=== PATIENT | male | born 1940 | race Caucasian/White ===

== ENCOUNTER 2018-08-28 12:08 | Outpatient (REF) | payer MEDICARE, BC, SELFPAY ==
[2018-08-28 12:47] LABS: ALT 21 U/L (12-78); AST 18 U/L (15-37); Albumin 3.6 g/dL (3.4-5.0); Alkaline Phosphatase 80 U/L (46-116); Anion Gap 8.8 mmol/L (3-11); BUN 13 mg/dL (7-18); Bilirubin, Total 0.7 mg/dL (0.2-1.0); CO2 28.2 mmol/L (21.0-32.0); CREATININE 0.87 mg/dL (0.70-1.30); Calcium 8.7 mg/dL (8.5-10.1); Chloride 104 mmol/L (98-107); Glucose 102 mg/dL (70-100); Potassium 4.1 mmol/L (3.5-5.1); Sodium 141 mmol/L (136-145)
[2018-08-28 12:58] LABS: Abs Immature Grans 0.03 k/cumm (0.0-0.09); Absolute Basophil Count 0.03 k/cumm (0.0-0.2); Absolute Eosinophil Count 0.16 k/cumm (0.0-0.7); Absolute Lymphocyte Count 1.18 k/cumm (1.2-3.4); Absolute Monocyte Count 0.73 k/cumm (0.11-0.7); Absolute Neutrophil Count 5.27 k/cumm (1.2-6.7); Basophils % 0.4; Eosinophils % 2.2; HCT 43.6 % (40.0-50.0); HGB 14.8 g/dL (13.5-17.5); Immature Grans % 0.4; Lymphocytes % 15.9; Mean Corp. HGB Concentration 33.9 g/dL (32.0-36.0); Mean Corpuscular Volume 97.1 fL (80-95); Mean Platelet Volume 11.2 fL (8.0-11.0); Monocytes % 9.9; Neutrophils % 71.2; Platelet Count 155 x1000/uL (130-400); RBC 4.49 m/cumm (4.50-6.00)
[2018-08-28 13:12] LABS: Lipase 318 U/L (73-393)
== END 2018-08-28 12:28 ==
LOC: NCHCN 12:08
PROVIDERS: PCP Internal Medicine; Visit Provider Internal Medicine
DX: R10.84 Generalized abdominal pain (principal)
CPT/HCPCS: 80053; 83690; 85025

== ENCOUNTER 2019-03-16 01:52 | Outpatient (CLI) | payer MEDICARE, BC, SELFPAY ==
--- NOTE | 2019-04-03 15:53 | CER_ITS ---
DATE OF DICTATION: April 03, 2019 [facility] RHYTHM MONITORING DEVICE REPORT INDICATION: Palpitations. MONITORING PERIOD: Between March 16, 2019 and April 01, 2019 Baseline is sinus rhythm with PAC's. Average heart rate 71 bpm. One short burst of non-sustained VT lasting 6 beats. Otherwise sinus rhythm with isolated PAC's. Overall rare ventricular ectopy otherwise. No atrial fibrillation.
== END 2019-03-16 02:12 ==
PROVIDERS: PCP Internal Medicine; Visit Provider Internal Medicine
DX: R00.2 Palpitations (principal); I49.1 Atrial premature depolarization
CPT/HCPCS: 93270

== ENCOUNTER 2019-04-03 15:40 | Outpatient (CLI) | payer MEDICARE, BC, SELFPAY | END 2019-04-03 16:00 | PROVIDERS: PCP Internal Medicine; Referring Provider Internal Medicine; Visit Provider Internal Medicine Cardiovascular Disease | DX: R00.2 Palpitations (principal); I49.1 Atrial premature depolarization | CPT/HCPCS: 93228 ==

== ENCOUNTER 2019-04-22 00:26 | Outpatient (CLI) | payer MEDICARE, BC, SELFPAY ==
--- NOTE | 2019-04-22 08:30 | ETT_ITS ---
*[facility]* *[facility]* [address] [place] [address] Stress Electrocardiography Vishnu protocol Date of study: 04/22/2019 *PATIENT PRESENTATION* Height: 175.3cm (69in) Blood Pressure: Weight: 81.8kg (180lb) BSA: 2.01m^2 Ordering physician: Logan Kauffman MD Impressions: - Borderline study. - Good functionality, no symptoms, borderline EKG changes. If clinical suspicion persists consider MPI. - No ventricular ectopy noted. Summary: 1. Stress ECG conclusions: Galvan treadmill score: 0. This score predicts a moderate risk of cardiac events. Indication: I47.2. History: REASON FOR TESTING:PATIENT REPORTED TO HIS MD THAT HE HAS HAD INTERMITTANT, SELF LIMITING, PALPITATIONS. 6 BEATS OF NON-SUSTAINED VTACH SEEN ON HOLTOR MONITOR RECORDER. PT DENIES SOBOR CHEST PAIN OR PRESSURE. PMH: NSVT, INTERMITTANT PALPITATIONS, NECK PAIN, HIP PAIN, HYPERTENSION, MELANOMA, DJD LUMBAR SPINE AND KNEE, BPH, LYPERLIPIDEMIA. FAMILY HX: MOTHER- OPF CVA AT AGE 91. SMOKING: QUIT 45 YEARS AGO.1.2 PPD X 10 YEARS. EXCERCISE: WALKS DAILY, OVER UNEVEN TERRAIN WITH DOG, BRISKLY FOR 1 HOUR. Risk factors: Cholesterol: 176mg/dl. HDL: 46mg/dl. LDL: 114mg/dl. Triglycerides: 181mg/dl. ALLERGIES: PENICILLIN, SEPTRA MEDICATIONS: PRAVASTATING SODIUM 20 MG HS, ASPIRIN EC 81 MG DAILY, CALCIUM 500 MG BID, OMEGA 3 1000 MG DAILY, SAW PALMETTO 900 MG DAILY. Protocol: Vishnu protocol. Baseline ECG: NO EKG AVAILABLE FOR COMPARISON. TODAY'S EKG- SINUS RHYTHM, HR 70. Stress protocol: + +---+ +---+ !Stage !HR !BP (mmHg) !Sat! + +---+ +---+ !Baseline supine !70 !194/92 (126) !---! + +---+ +---+ !Baseline standing !67 !168/84 (112) !---! + +---+ +---+ !Stage I; 1.7mph, 10degrees; 3 min !113!190/94 (126) !98%! + +---+ +---+ !Stage II; 2.5mph, 12degrees; 3 min!136!198/96 (130) !96%! + +---+ +---+ !Recovery; 1 min !126!208/100 (136)!---! + +---+ +---+ !Recovery; 3 min !91 !180/98 (125) !---! + +---+ +---+ !Recovery; 6 min !77 !182/94 (123) !---! + +---+ +---+ * Stress results: The rate-pressure product for the peak heart rate and blood pressure was 03295mc Hg/min. Stress ECG: EXCERCISE TESTING ENDED IN 7 MINS, 48 SECS DUE TO MAX HR. MAX HR [id number], 104% OF TARGET. HYPERTENSIVE AT BASELINE , WITH A HYPERTENSIVE BLOOD PRESSURE RESPONSE. METS: 9.85 ECTOPY: NO ECTOPY DURING EXCERCISE, BUT FREQUENT APC'S NOTED INT HE FIRST 4 MINS OF RECOVERY. ANGINA: NO REPORTED CHEST PAIN, PRESSURE, OR PALPITATIONS. ISCHEMIA: 1-2 mm horizontal / upsloping ST depression anterlateral leads. FUNCTIONAL CAPACITY: ABOVE AVERAGE CAPACITY. Galvan treadmill score: 0. This score predicts a moderate risk of cardiac events. Study data: Yves Bernard MD supervised and was readily available during the procedure. This study was interpreted by [facility]. Study status: Routine. Consent: The risks, benefits, and alternatives to the procedure were explained to the patient and informed consent was obtained. Procedure: Initial setup. A baseline ECG was recorded. Surface ECG leads and manual cuff blood pressure measurements were monitored. Heart sounds: Normal. Lung sounds: Normal. Treadmill exercise testing was performed using the Vishnu protocol. Study completion: The patient tolerated the procedure well and was discharged from the lab. Discharge: The patient left the laboratory in stable condition. Birthdate: Patient birthdate: 1940. Sex: Gender: male. Study date: Study date: 04/22/2019. Study time: 00:01 AM. Electronically signed by Yves Bernard MD 04/22/2019 11:49
== END 2019-04-22 00:46 ==
PROVIDERS: PCP Internal Medicine; Visit Provider Internal Medicine
DX: I47.1 Supraventricular tachycardia (principal); R00.2 Palpitations; R94.31 Abnormal electrocardiogram [ECG] [EKG]; I10 Essential (primary) hypertension; E78.5 Hyperlipidemia, unspecified; Z87.891 Personal history of nicotine dependence
CPT/HCPCS: 93016; 93018; 93017

== ENCOUNTER 2019-06-30 09:45 | Outpatient (REF) | payer MEDICARE, BC, SELFPAY ==
[2019-06-30 12:51] LABS: Calculated LDL 104 mg/dL; Cholesterol 177 mg/dL (50-200); HDL Cholesterol 44 mg/dL (40-60); Triglyceride 149 mg/dL (30-150)
== END 2019-06-30 10:05 ==
LOC: NCHCN 09:45
PROVIDERS: PCP Internal Medicine; Visit Provider Internal Medicine
DX: E78.5 Hyperlipidemia, unspecified (principal)
CPT/HCPCS: 80061

== ENCOUNTER 2019-08-10 08:18 | Outpatient (REF) | payer MEDICARE, BC, SELFPAY ==
[2019-08-10 11:24] LABS: Calculated LDL 87 mg/dL; Cholesterol 176 mg/dL (<200); HDL Cholesterol 47 mg/dL (40-60); Triglyceride 212 mg/dL (<150)
== END 2019-08-10 08:38 ==
LOC: NCHCN 08:18
PROVIDERS: PCP Internal Medicine; Visit Provider Internal Medicine
DX: E78.5 Hyperlipidemia, unspecified (principal)
CPT/HCPCS: 80061

== ENCOUNTER 2019-08-24 12:47 | Outpatient (REF) | payer MEDICARE, BC, SELFPAY ==
[2019-08-24 22:52] LABS: Uric Acid 6.5 mg/dL (3.5-7.2)
== END 2019-08-24 13:07 ==
LOC: NCHCN 12:47
PROVIDERS: PCP Internal Medicine; Visit Provider Specialist/Technologist Athletic Trainer
DX: M79.676 Pain in unspecified toe(s) (principal)
CPT/HCPCS: 84550

== ENCOUNTER 2019-12-22 11:22 | Outpatient (REF) | payer MEDICARE, BC, SELFPAY ==
[2019-12-22 21:01] LABS: Anion Gap 6.3 mmol/L (3-11); BUN 14 mg/dL (7-18); CO2 29.7 mmol/L (21.0-32.0); CREATININE 0.91 mg/dL (0.70-1.30); Calcium 9.3 mg/dL (8.5-10.1); Chloride 104 mmol/L (98-107); Glucose 94 mg/dL (74-106); Potassium 4.3 mmol/L (3.5-5.1); Sodium 140 mmol/L (136-145)
== END 2019-12-22 11:42 ==
LOC: NCHCN 11:22
PROVIDERS: PCP Internal Medicine; Visit Provider Internal Medicine
DX: I10 Essential (primary) hypertension (principal)
CPT/HCPCS: 80048

== ENCOUNTER → 2020-02-24 08:57 | Outpatient (BNVA) | payer MEDICARE, BC, SELFPAY | PROVIDERS: PCP Internal Medicine; Referring Provider Internal Medicine; Visit Provider Surgery | DX: Z12.11 Encounter for screening for malignant neoplasm of colon (principal); Z86.010 Personal history of colon polyps; I10 Essential (primary) hypertension | CPT/HCPCS: 99212 ==

== ENCOUNTER 2020-03-10 09:12 | Day surgery (SDC) | payer MEDICARE, BC, SELFPAY ==
[2020-03-10 09:41] VITALS: BP 168/81; PULSE 56; RESP 16; TEMP 36.2; O2SAT 97
[2020-03-10] MEDS: Lactated Ringers 1,000 ML 100 ML IV (10:00)
--- NOTE | 2020-03-10 10:41 | PDOC.DSDIS_ITS ---
Discharge Plan Disposition Patient Disposition: HOME Condition: Good Discharge Details Attending Provider: Casi Vasquez Primary Care Provider: Logan Kauffman Home Meds and New Rx's Prescriptions: Continued aspirin [Aspir-81] 81 MG tablet,delayed release (DR/EC) 81 mg PO DAILY RF: 0 calcium carbonate 500 MG tablet,chewable 500 mg PO PRN RF: 0 hydrochlorothiazide 12.5 mg tablet 12.5 mg PO DAILY RF: 0 carvedilol 3.125 mg tablet 3.125 mg PO BID RF: 0 pravastatin 40 mg tablet 40 mg PO DAILY RF: 0 famotidine 10 mg Tablet 10 mg PO DAILY RF: 0 calcium carbonate [Calcium 600] 600 mg calcium (1,500 mg) Tablet 1,200 mg PO DAILY RF: 0 Shipman 3-6-9 Fatty Acids 400-400-200 mg Capsule PO RF: 0 Discontinued polyethylene glycol 3350 17 gram/dose powder 238 g PO ONCE Qty: 238 RF: 0 bisacodyl [Dulcolax (bisacodyl)] 5 mg tablet,delayed release (DR/EC) 5 mg PO ONCE Qty: 4 RF: 0 Discharge Instructions Additional Instructions: Findings:diverticula follow high fiber and avoid straining to move bowels. DIVERTICULAR DISEASE OVERVIEW ? A diverticulum is a pouch-like structure that can form through points of weakness in the muscular wall of the colon (ie, at points where blood vessels pass through the wall). Diverticulosis affects men and women equally. The risk of diverticular disease increases with age. It occurs throughout the world but is seen more commonly in developed countries. WHAT IS DIVERTICULAR DISEASE? Diverticulosis ? Diverticulosis merely describes the presence of diverticula. Diverticulosis is often found during a test done for other reasons, such as flexible sigmoidoscopy, colonoscopy, or barium enema. Most people with diverticulosis have no symptoms and will remain symptom free for the rest of their lives. A person with diverticulosis may have diverticulitis, or diverticular bleeding. Diverticulitis ? Inflammation of a diverticulum (diverticulitis) occurs when there is thinning and breakdown of the diverticular wall. This may be caused by increased pressure within the colon or by hardened particles of stool, which can become lodged within the diverticulum. The symptoms of diverticulitis depend upon the degree of inflammation present. The most common symptom is pain in the left lower abdomen. Other symptoms can include nausea and vomiting, constipation, diarrhea, and urinary symptoms such as pain or burning when urinating or the frequent need to urinate. Diverticulitis is divided into simple and complicated forms. ?Simple diverticulitis, which accounts for 75 percent of cases, is not associated with complications and typically responds to medical treatment without surgery. ?Complicated diverticulitis occurs in 25 percent of cases and usually requires surgery. Complications associated with diverticulitis can include the following: ?Abscess ? a localized collection of pus ?Fistula ? an abnormal tract between two areas that are not normally connected (eg, bowel and bladder) ?Obstruction ? a blockage of the colon ?Peritonitis ? infection involving the space around the abdominal organ ?Sepsis ? overwhelming body-wide infection that can lead to failure of multiple organs Diverticular bleeding ? Diverticular bleeding occurs when a small artery located within a diverticulum is eroded and bleeds into the colon. Diverticular bleeding usually causes painless bleeding from the rectum. In approximately 50 percent of cases, the person will see maroon or bright red bloo d with bowel movements. Is bleeding with a bowel movement normal? ? It is not normal to see blood in a bowel movement; this can be a sign of several conditions, most of which are not serious (eg, hemorrhoids) but some of which are serious and require immediate treatment. Anyone who sees blood after a bowel movement should consult with their healthcare provider to determine if further testing or evaluation is needed. DIVERTICULOSIS AND DIVERTICULITIS DIAGNOSIS ? Diverticulosis is often found during tests performed for other reasons. ?Barium enema ? This is an x-ray study that uses barium in an enema to view the outline of the lower intestinal tract. This is an older test and has been largely replaced by computed tomography (CT) scan. ?Flexible sigmoidoscopy ? This is an examination of the inside of the sigmoid colon with a thin, flexible tube that contains a camera. ?Colonoscopy ? This is an examination of the inside of the entire colon. ?CT scan ? A CT scan is often used to diagnose diverticulitis and its complications. If diverticulitis (not just diverticulosis) is suspected, the above three tests should not be used because of the risk of perforation. TREATMENT Diverticulosis ? People with diverticulosis who do not have symptoms do not require treatment. However, most clinicians recommend increasing fiber in the diet, which can help to bulk the stools and possibly prevent the development of new diverticula, diverticulitis, or diverticular bleeding. Fiber is not proven to prevent these conditions in all patients but may help to control recurrent episodes in some. Increase fiber ? Fruits and vegetables are a good source of fiber. Fiber content of packaged foods can be calculated by reading the nutrition label. Seeds and nuts ? Patients with diverticular disease have historically been advised to avoid whole pieces of fiber (such as seeds, corn, and nuts) because of concern that these foods could cause an episode of diverticulitis. However, this belief is completely unproven. We do not suggest that patients with diverticulosis avoid seeds, corn, or nuts. Diverticulitis ? Treatment of diverticulitis depends upon how severe your symptoms are. Home treatment ? If you have mild symptoms of diverticulitis (mild abdominal pain, usually left lower abdomen), you can be treated at home with a clear liquid diet and oral antibiotics. However, if you develop one or more of the following signs or symptoms, you should seek immediate medical attention: ?Temperature >100.1?F (38?C) ?Worsening or severe abdominal pain ?An inability to tolerate fluids Hospital treatment ? If you have moderate to severe symptoms, you may be hospitalized for treatment. During this time, you are not allowed to eat or drink; antibiotics and fluids are given into a vein. If you develop an abscess of the colon, you may require drainage of the abscess (usually performed by placing a drainage tube across the abdominal wall) or by surgically opening the affected area. Surgery ? If you develop a generalized infection in the abdomen (peritonitis), you will usually require an emergency operation. A two-part operation may be necessary in some cases. ?The first operation involves removal of the diseased colon and creation of a colostomy. A colostomy is an opening between the colon and the skin, where a bag is attached to collect waste from the intestine. The lower end of the colon is t emporarily sewed closed to allow it to heal. ?Approximately three to six months later, a second operation is performed to reconnect the two parts of the colon and close the opening in the skin. You are then able to empty your bowels through the rectum. Sometimes patients require up to a year to recover from the first operation, depending on how sick they were. In non-emergency situations, the diseased area of the colon can be removed and the two ends of the colon can be reconnected in one operation, without the need for a colostomy. Surgery versus medical therapy ? An operation to remove the diseased area of the colon may be necessary if you do not improve with medical therapy. After an episode of uncomplicated diverticulitis, elective surgery is generally not required as the risk of another attack or requiring emergency surgery is low. However, patients with persistent symptoms attributable to diverticulitis, a history of complicated diverticulitis, or a compromised immune system should be evaluated for possible surgery to prevent another attack. In such patients, another attack has been associated with a higher risk of complications or . Of course, the decision will also depend in part upon your other medical conditions and ability to undergo surgery. In many cases, an elective operation can be performed laparoscopically, using small incisions, rather than the typical vertical (up and down) abdominal incision. Laparoscopic surgery usually allows you to recover more quickly and shortens the hospital stay. After diverticulitis resolves ? After an episode of diverticulitis resolves, if you have not had a recent colonoscopy, the entire length of the colon should be evaluated to determine the extent of disease and to rule out the presence of abnormal lesions such as polyps or cancer. Recommended tests include colonoscopy, barium enema and sigmoidoscopy, or CT colonography. Diverticular bleeding ? Most cases of diverticular bleeding resolve on their own. However, some people will need further testing or treatment to stop bleeding, which may include a colonoscopy, angiography (a treatment that blocks off the bleeding artery), bleeding scan, or surgery. DIVERTICULAR DISEASE PROGNOSIS Diverticulosis ? Over time, diverticulosis may cause no problems or it may cause episodes of bleeding and/or diverticulitis. Approximately 15 to 25 percent of people with diverticulosis will develop diverticulitis, while 5 to 15 percent will develop diverticular bleeding. Diverticulitis ? Approximately 85 percent of people with uncomplicated diverticulitis will respond to medical treatment, while approximately 15 percent of patients will need an operation. After successful treatment for a first attack of diverticulitis, one-third of patients will remain asymptomatic, one- third will have episodic cramps without diverticulitis, and one-third will go on to have a second attack of diverticulitis. The prognosis tends to remain similar following a second attack of diverticu litis. Only 10 percent of people remain symptom-free after a second attack. Subsequent attacks tend to be of similar severity, not increasing in severity as previously believed. Taking a Fiber Supplement Dietary fiber is a plant-based nutrient that's necessary for the healthy functioning of your digestive system. In addition to helping your bowels stay regular, it's also useful for maintaining optimum cholesterol and blood sugar levels as well as a healthy weight. Although it's technically a carbohydrate, it's not the kind that can be broken down into digestible sugars by the body. Instead, fiber travels through your digestive system while bulking and softening your stool?making it easier to pass. It also helps absorb excess blood sugars and cholesterols. The [place] [employer] recommends 30 grams (g) of fiber a day for men, and 25g a day for women. Fiber is found in fruits, vegetables, legumes, and whole grains, and is an important part of the diet. But because many people find it difficult to eat the recommended quantity of 25 to 38 g per day, fiber supplementation can be extremely helpful to ease the symptoms of a variety of digestive discomforts like diarrhea and constipation. Today, many fiber supplements are found on the market containing one of three active ingredients: psyllium, methylcellulose, and polycarbophil Health Benefits If you have diarrhea, supplementing with fiber can bulk up the stool and reduce frequent urges to evacuate the bowel. If you have constipation, fiber supplements can soften your stool and speed up its movement through the colon. To understand how fiber helps relieve symptoms of both diarrhea and constipation, it's important to differentiate between soluble fiber and insoluble fiber. Soluble fiber forms a gel in your colon by absorbing water and retaining it in your stool, which makes bowel movements softer and easier to pass. Insoluble fiber bulks stool up, which also helps it move through your intestines more easily. Thus, fiber can also help you avoid hemorrhoids and anal fissures that can develop when straining to pass a bowel movement. Additionally, supplementing with fiber can be part of a treatment plan for conditions such as irritable bowel syndrome (IBS), various types of inflammatory bowel disease (IBD) like Crohn's disease and ulcerative colitis, as well as diverticulosis. Fiber increases satiety, or fullness, and is thus helpful for those looking to lose weight or maintain a healthy weight. Sufficient fiber intake has also been shown to decrease the risk of certain cancers, heart disease, and diabetes. There is also evidence that enough fiber, when combined with a diet rich in Vitamin A, has a protective effect against food allergies. Possible Side Effects The potential side effects of fiber supplementation include: ? Gas and gas pain ? Abdominal bloating ? Lowered blood sugar ? Diarrhea or constipation (if taken in excess) ? Weight loss ? Lessened effectiveness of medications and vitamins (if taken at the same time as fiber) Because of the way fiber supplements bulk up in the intestinal tract and absorb surrounding materials, they can interfere with the body's ability to assimilate medications, vitamins, and nutrients. For that reason, it's important to consume fiber supplements at least one hour after, or two hours before, taking medications and important vitamins. Dosage and Preparation Fiber supplements often come in the form of powders meant to be mixed with water or another liquid. They also are available in capsule form, or as additives to foods like crackers, cookies, cereals, and bars. Dosage will vary based on the product and your desired effects. If you are healthy, it's generally recommended to start with a low dose of fiber and build up until you've reached optimum total daily fiber intake?roughly 25g for women and 38g for men?which should also include your dietary sources of fiber What to Look For When shopping for fiber, look closely at the ingredients to discover which form of fiber is used in each commercial brand. Also, if you're avoiding added sugar, salt, flavorings, or dyes, check the label for these common additives. If you're just starting with a fiber supplement, use a low dose and drink plenty of water when you take the supplement and throughout the day. If you are not used to eating a high fiber diet/taking a supplement, start with about half of the recommended dose. Always remember to take fiber with 8oz of water. Continue at this dose for about 2-3 weeks, and then slowly increase up to the full dose daily. Fiber is a natural product- you can increase the dose to 2-4 times a day as needed to have a formed BM without straining. Increase the dose slowly until you reach either the desired total intake or a specific effect. Psyllium Psyllium is made from the seeds of a plant in the Plantago genus and contains about 70% soluble fiber and 30% insoluble fiber. It helps the stool absorb water and bulks it up, making it easier to pass. It also breaks down in the gut (a process called fermentation) and becomes a food source for the good bacteria that reside there. Psyllium is used for treating constipation, irritable bowel syndrome (IBS), and diverticulosis. In addition, psyllium may lower cholesterol levels and provide some protection from heart disease. On the downside, psyllium may cause intestinal gas and contains a small number of calories (roughly 20 calories per tablespoon). Psyllium is sold under the brand names Metamucil, Fiberall, Hydrocil, Konsyl, Perdiem, and Serutan. Methylcellulose Methylcellulose is a non-allergenic and non-fermentable fiber created from the cell roman of plants. Instead of being absorbed by the intestinal tract, methylcellulose pulls in water to create a softer stool. Methylcellulose is often used to treat constipation, diverticulosis, IBS, and some causes of diarrhea. Because it does not ferment, it is less likely than psyllium to cause intestinal gas; however, methylcellulose does not feed healthy gut bacteria the way psyllium does. It can be used prison but it should be noted that, because it can interfere with absorption, methylcellulose should be taken apart from any prescribed medications. Methylcellulose is sold under the brand name Citrucel. Polycarbophil Similar to methylcellulose, polycarbophil absorbs water in the intestinal tract and creates a bulkier and softer stool. Because it does not ferment and is not absorbed by the body, polycarbophil is less likely to cause bloating and can, therefore, be comfortably used ad terminal makeup operator. Polycarbophil may be used to treat constipation, IBS, and diverticulosis, but is not appropriate for people who have difficulty swallowing. Like methylcellulose, it should be taken about two hours apart from medications. Polycarbophil is sold under the brand names Fibercon, Fiber-Lax, Equalactin, and Mitrolan. Other Questions What are the best dietary sources of fiber? Whether or not you choose to supplement with fiber, it's still important to include a variety of high-fiber foods in your diet, such as: ? Fresh fruit (pears, apples, strawberries, bananas) ? Fresh vegetables (broccoli, Brussel sprouts, beets, and carrots) ? Legumes (lentils, split peas, kidney beans, chickpeas, black beans, albert beans) ? Whole Grains (quinoa, oats, brown rice, millet, barley) ? Other food sources of fiber (popcorn, sweet potatoes, and antoinette) What time of day is best? Different manufacturers may have varying recommendations on when and how frequently to take fiber supplements. You may want to divide your daily dose into two or three portions to reduce bloating and gas that could occur when taking a large dose all at once. To avoid malabsorption, it's important to take medications or vitamins either one hour before, or two hours after, taking fiber supplements. If using a powdered form of fiber, be sure to dissolve it well. No matter what kind of fiber supplement you are using, be sure to drink plenty of water, at least 8ox, unless you are on fluid restrictions. Follow up:as needed. Does not require further colonscopy's Please call if you develop: fevers >101.5 Nausea or Vomiting Abdominal pain that is not transient DAY SURGERY UNIT POST COLONOSCOPY INSTRUCTIONS 1. Because there will be medication in your system for the next 24 hours, you may feel a little sleepy. Your coordination will be affected. Therefore: a. Do not drive or operate dangerous equipment for 24 hours. b. Do not drink alcohol beverages for 24 hours (not even beer). c. Plan to go home and rest for the day. 2. Generally there are no restrictions on your activity after a day or so has gone by, but you may feel a bit fatigued for a few days. 3 After you arrive home you may have a light meal and return to a normal diet as you can tolerate it without feeling sick to your stomach. 4. After surgery, you may feel pain or discomfort. This should be only transient, but if it persists please contact your doctor. 5. If there are any questions regarding the findings of your procedure, please feel free to contact your doctor. 6. If you are unable to contact your doctor with a problem, contact the hospital at [phone]. 7. Continue all your regular medications unless directed otherwise. I understand the above instructions and have no questions. Signature of Patient or Responsible Adult Escort Date/Time Name of Responsible Adult Escort Signature of Nurse Date/Time Discharge Orders Discharge Orders: Discharge Order (Routine); Ordered 03/10/20 Ordered By: Casi Vasquez DS: Diagnosis Discharge Diagnosis (1) Personal history of colonic polyps: Status: Acute
--- NOTE | 2020-03-10 11:15 | W.COLOREPORT ---
Date of service: 03/10/20 Time of Service: 11:15 Colonoscopy Report Date of procedure: 03/10/20 Pre-op diagnosis general: A. polyps Post-op diagnosis procedure note: other (Diverticular disease) Procedure: Colonoscopy Surgeon: Casi Vasquez Anesthesia proc note operative: MAC Estimated blood loss (mL): 0 Pathology: none sent Complications: None Disposition: same day Prep: Miralax/Dulcolax Retraction Time: 10 mins Procedure Description: After informed consent was obtained the patient was taken to the procedure room and placed in a left decubitous position. Monitors were applied and a time out was done. The patients name, date of , procedure, allergies to medications and metal in their body was reviewed. The patient was then sedated. Once sedated and comfortable a rectal exam was done. External exam was normal- Grade II ext hemorrhoids. Internal exam revealed a normal sphincter tone and no palpable masses. . The scope was then introduced and retrofelexed. No internal hemorrhoids were identified. The scope was then advanced to the cecum w/out difficulty. The TI and appendiceal orifice were identified. The prep was good. The scope was then slowly retracted over 10 minutes back into the rectum. No polyps or AVMs identified. The mucosa is pink and healthy. He has multiple small to large diverticuli in the sigmoid colon. Moderate disease. No signs of active bleeding or infection. the scope was removed and the patient was woken up and taken back to Same day surgery in stable condition. The patient tolerated the procedure well and there were no immediate complications. Follow up: The patient does not require any relief colonoscopies, there is no unless they develop changes in bowel habits or other new gastrointestinal complaints.
[2020-03-10 11:57] VITALS: BP 141/82; PULSE 62; RESP 18; TEMP 36.1; O2SAT 96
== END 2020-03-10 12:34 | disposition home or self-care (01) ==
PROVIDERS: PCP Internal Medicine; Visit Provider Surgery
PROC: 0DJD8ZZ Inspection of Lower Intestinal Tract, Via Natural or Artificial Opening Endoscopic (ICD-10-PCS; CPT 45378; principal; 2020-03-10 09:45)
DX: Z12.11 Encounter for screening for malignant neoplasm of colon (principal); Z86.010 Personal history of colon polyps; K57.30 Diverticulosis of large intestine without perforation or abscess without bleeding
CPT/HCPCS: G0105; G0121; J2001

== ENCOUNTER 2020-03-31 14:51 | Outpatient (CLI) | payer MEDICARE, BC, SELFPAY ==
--- NOTE | 2020-03-31 14:43 | DI.RAD_ITS ---
EXAM: XR TOE LT GREAT CLINICAL HISTORY: ARTHRITIS, ACUTE M19.90 TECHNIQUE: COMPARISON: No exams were available for comparison FINDINGS: Three views were obtained. There is marked soft tissue swelling adjacent to the 1st MTP joint with s oft tissue calcification suggestive of gouty tophus, please correlate clinically. There is a moderat e hallux valgus deformity. Cartilaginous joint space the 1st MTP joint fairly well maintained. Ques tion slight periarticular erosions. Subchondral sclerosis and cyst formation noted. Moderate margin al osteophytes noted. IMPRESSION: Hallux valgus and degenerative arthritis, suspicion of gout as noted above. Please correlate clinica lly.
== END 2020-03-31 15:11 ==
PROVIDERS: PCP Internal Medicine; Visit Provider Internal Medicine
DX: M19.071 Primary osteoarthritis, right ankle and foot (principal); M20.11 Hallux valgus (acquired), right foot
CPT/HCPCS: 73660

== ENCOUNTER 2020-08-09 17:32 | Outpatient (REF) | payer MEDICARE, BC, SELFPAY ==
[2020-08-09 21:32] LABS: BUN 18 mg/dL (7-18); CREATININE 1.09 mg/dL (0.70-1.30); Calcium 9.1 mg/dL (8.5-10.1); Chloride 106 mmol/L (98-107); Glucose 91 mg/dL (74-106); Potassium 4.5 mmol/L (3.5-5.1); Sodium 140 mmol/L (136-145); Uric Acid 7.2 mg/dL (3.5-7.2)
== END 2020-08-09 17:52 ==
LOC: NCHCN 17:32
PROVIDERS: PCP Internal Medicine; Visit Provider Internal Medicine
DX: M10.00 Idiopathic gout, unspecified site (principal); I10 Essential (primary) hypertension
CPT/HCPCS: 80048; 84550

== ENCOUNTER 2020-11-15 12:34 | Outpatient (REF) | payer MEDICARE, BC, SELFPAY ==
[2020-11-15 13:20] LABS: Abs Immature Grans 0.02 10^3/uL (0.0-0.06); Absolute Basophil Count 0.03 10^3/uL (0.0-0.2); Absolute Eosinophil Count 0.13 10^3/uL (0.0-0.7); Absolute Lymphocyte Count 1.26 10^3/uL (1.2-3.4); Absolute Monocyte Count 0.56 10^3/uL (0.1-0.8); Absolute Neutrophil Count 3.28 10^3/uL (1.2-6.7); Basophils % 0.6; Eosinophils % 2.5; HCT 44.1 % (40.0-50.0); HGB 15.3 g/dL (13.5-17.5); Immature Grans % 0.4; Lymphocytes % 23.9; MCH 33.3 pg (27.0-33.0); MCHC 34.7 % (32.0-36.0); MCV 95.9 fL (80-95); Monocytes % 10.6; Nucleated RBC 0 %; Platelet Count 147 10^3/uL (130-400); RDW 11.8 % (11.8-14.1); RDW-SD 41.1 fL; WBC 5.28 10^3/uL (4.4-10.8)
[2020-11-15 13:59] LABS: ALT 26 U/L (16-63); AST 17 U/L (15-37); Albumin 3.8 g/dL (3.4-5.0); Alkaline Phosphatase 82 U/L (46-116); Anion Gap 8.8 mmol/L (3-11); BUN 17 mg/dL (7-18); CO2 28.2 mmol/L (21.0-32.0); CREATININE 0.9 mg/dL (0.70-1.30); Calcium 9.1 mg/dL (8.5-10.1); Chloride 106 mmol/L (98-107); Glucose 100 mg/dL (74-106); Potassium 4.5 mmol/L (3.5-5.1); Sodium 143 mmol/L (136-145); Total Protein 6.9 g/dL (6.4-8.2)
== END 2020-11-15 12:35 | disposition home or self-care (01) ==
LOC: NCHCN 12:34
PROVIDERS: PCP Internal Medicine; Visit Provider Internal Medicine
DX: R10.9 Unspecified abdominal pain (principal)
CPT/HCPCS: 80053; 85025

== ENCOUNTER 2020-12-19 09:17 | Outpatient (CLI) | payer MEDICARE, BC, SELFPAY | END 2020-12-19 09:18 | disposition home or self-care (01) | LOC: DIORS 09:18 | PROVIDERS: PCP Internal Medicine; Referring Provider Internal Medicine; Visit Provider Student in an Organized Health Care Education/Training Program | DX: M70.62 Trochanteric bursitis, left hip (principal) | CPT/HCPCS: 99213 ==

== ENCOUNTER 2021-01-09 09:37 | Outpatient (REF) | payer MEDICARE, BC, SELFPAY ==
[2021-01-09 13:47] LABS: Uric Acid 6.4 mg/dL (3.5-7.2)
== END 2021-01-09 09:38 | disposition home or self-care (01) ==
LOC: NCHCN 09:37
PROVIDERS: PCP Internal Medicine; Visit Provider Internal Medicine
DX: M10.9 Gout, unspecified (principal)
CPT/HCPCS: 84550

== ENCOUNTER 2021-02-08 00:38 | Outpatient (CLI) | payer MEDICARE, BC, SELFPAY ==
--- NOTE | 2021-02-08 08:15 | DI.MRI_ITS ---
Exam(s) MR LOWER JOINT LT WO EXAM: MR LOWER JOINT LT WO CLINICAL HISTORY: LT HIP PAIN, M25.552 TECHNIQUE: Multiplanar multisequence MRI of the hip was performed. COMPARISON: CR XR HIP SINGLE W PELVIS from 12/31/2019 CR XR HIP SINGLE W PELVIS from 12/31/2019 FINDINGS: MARROW:There is no evidence of fracture, bone contusion, nor avascular necrosis. There are no signif icant osseous lesions.There is no significant osseous excrescence at the femoral head-neck junction t o suggest the presence of cam-type MARIANO. EFFUSION: There is no evidence of prominent joint effusion. BURSAE: There is no evidence of trochanteric bursitis. There is no evidence of iliopsoas bursitis. Mild increased signal is seen in the gluteus medius tendon at the lateral aspect of the greater tuber osity consistent with mild tendinitis. There is no abnormal fluid collection in this region. HIP JOINT SPACE: There is mild-moderate joint space narrowing and cartilage loss. No prominent chond ral defect. No osteochondral defect. There are no degenerative subarticular cysts.There is no hyper trophy of the ligamentum teres nor signal abnormality at the fovea centralis. LABRUM: Mild increased signal is seen in the anterior labrum consistent with some tearing. There is no evidence of paralabral cyst. There is no degenerative subarticular cyst at this level ISCHIAL TUBEROSITY/HAMSTRING: There is no abnormal intraosseous signal in the ipsilateral ischial tub erosity nor tear of the common hamstrings tendon attachment site at this level. OTHER: There is no abnormal intramuscular signal within the quadratus femoris to suggest the presence of impingement syndrome at this level. Chronic disc space narrowing noted in the lumbosacral spine. Enlarged prostate gland incidentally noted. IMPRESSION: 1. No evidence of fracture, avascular necrosis, nor prominent left hip joint effusion. 2. Mild osteoarthritic degenerative changes. There are no degenerative subchondral subarticular dege nerative cysts on either side of the joint. No large osteophytes. 3. Mild tendinitis signal seen in the gluteus medius at the level of the lesser trochanter. 4. Mild labral tearing. No evidence of paralabral cyst. 5. No lytic osseous lesions evident. DATA REPOSITORY:
== END 2021-02-08 00:58 ==
PROVIDERS: PCP Internal Medicine; Visit Provider Student in an Organized Health Care Education/Training Program
DX: S73.102A Unspecified sprain of left hip, initial encounter (principal); M76.02 Gluteal tendinitis, left hip; M16.12 Unilateral primary osteoarthritis, left hip; M87.9 Osteonecrosis, unspecified; M25.452 Effusion, left hip; X58.XXXA Exposure to other specified factors, initial encounter
CPT/HCPCS: 73721

== ENCOUNTER 2021-03-14 14:02 | Outpatient (CLI) | payer MEDICARE, BC, SELFPAY ==
--- NOTE | 2021-03-14 13:45 | DI.RAD_ITS ---
Exam(s) XR LUMBAR SPINE AP, LAT EXAM: XR LUMBAR SPINE AP, LAT CLINICAL HISTORY: bursitis of left hip. TECHNIQUE: 2D digital imaging was performed. COMPARISON: No exams were available for comparison FINDINGS: There is no evidence of compression fracture. However, there is significant degenerative anterolisth esis of L4 upon L5, with approximately 12 millimeter anterior slippage of L4 upon L5 and there is als o disc space narrowing at this level. There is also advanced disc space narrowing at each level with the exception of L1-2 level where there is only moderate disc space narrowing. There is multilevel posterior bony ridging. Multilevel facet arthropathy. Sacroiliac joints appear unremarkable. Calci fication is noted in the abdominal aorta. IMPRESSION: Multilevel severe advanced degenerative disc disease. Also suspect spinal canal stenosis. At L4-5 level there is 12 millimeter anterior listhesis of L4 upon L5, this related to degenerative c hanges in the facet joints this level. DATA REPOSITORY: RADIATION DOSE DELIVERED:
== END 2021-03-14 14:03 | disposition home or self-care (01) ==
LOC: DIORS 14:02
PROVIDERS: PCP Internal Medicine; Referring Provider Internal Medicine; Visit Provider Student in an Organized Health Care Education/Training Program
DX: M70.62 Trochanteric bursitis, left hip (principal); M43.16 Spondylolisthesis, lumbar region; M76.00 Gluteal tendinitis, unspecified hip
CPT/HCPCS: 99214; 72100

== ENCOUNTER 2021-05-18 09:21 | Emergency (ER) | payer MEDICARE, BC, SELFPAY ==
[2021-05-18] VITALS (11 sets, daily range): BP systolic 162–180; BP diastolic 79–95; PULSE 62–92; RESP 15–23; TEMP 36.7–36.8; O2SAT 95–97
--- NOTE | 2021-05-18 09:15 | RT.EKG_ITS ---
APPROVED REPORT Exam: Resting ECG Reason for Exam: chest pain Patient Location: E HR:75 bpm ECG Measurements Heart Rate 75 AXIS SC 206 P -40 QRSd 97 QRS -28 QT 386 T 85 QTc 430 Conclusion Sinus rhythm...normal P axis, V-rate 60- 99 Low voltage, precordial leads...precordial leads <1.0mV Anteroseptal infarct, age indeterminate...Q >35mS, T neg, V1-V2. Sinus. No STEMI. I have reviewed and interpreted ECG and agree with software generated interpretation.
--- NOTE | 2021-05-18 09:30 | DI.RAD_ITS ---
Exam(s) XR CHEST 2V PA LATERAL EXAM: XR CHEST 2V PA LATERAL CLINICAL HISTORY: chest pain. TECHNIQUE: 2D digital imaging was performed. COMPARISON: CR RIGHT RIBS TO INCLUDE CXR from 08/15/2011 FINDINGS: Heart size is normal. The mediastinum is not widened. Lungs are clear. No infiltrates nor pleural effusions. Tenting of the right hemidiaphragm unchanged. IMPRESSION: No acute pulmonary findings. DATA REPOSITORY: RADIATION DOSE DELIVERED:
[2021-05-18 10:02] LABS: Abs Immature Grans 0.02 10^3/uL (0.0-0.06); Absolute Basophil Count 0.03 10^3/uL (0.0-0.2); Absolute Eosinophil Count 0.17 10^3/uL (0.0-0.7); Absolute Lymphocyte Count 1.28 10^3/uL (1.2-3.4); Absolute Neutrophil Count 2.95 10^3/uL (1.2-6.7); Basophils % 0.6; Eosinophils % 3.4; HCT 43.9 % (40.0-50.0); HGB 15.2 g/dL (13.5-17.5); Immature Grans % 0.4; Lymphocytes % 25.9; MCH 33.1 pg (27.0-33.0); MCHC 34.6 % (32.0-36.0); MCV 95.6 fL (80-95); MPV 10.8 fL (8.0-11.0); Monocytes % 10.1; Neutrophils % 59.6; Nucleated RBC 0 %; Platelet Count 157 10^3/uL (130-400); RBC 4.59 10^6/uL (4.36-5.78); RDW 12.1 % (11.8-14.1); WBC 4.95 10^3/uL (4.4-10.8)
--- NOTE | 2021-05-18 10:10 | ED.GENADUL_ITS ---
Discharge Plan Disposition Patient Disposition: HOME Condition: Stable Discharge Details Clinical Impression: Chest pressure Primary Care Provider: Logan Kauffman ED Provider: Joshua Turner Home Meds and New Rx's Prescriptions: Continued losartan 25 mg tablet 25 mg PO DAILY RF: 0 B.ani-L.aci-L.tejinder-L.plan-L.mike 10 billion cell (2 billion ea) capsule PO RF: 0 allopurinol 100 mg tablet 100 mg PO BID RF: 0 aspirin [Aspir-81] 81 MG tablet,delayed release (DR/EC) 81 mg PO DAILY RF: 0 carvedilol 3.125 mg tablet 3.125 mg PO BID RF: 0 pravastatin 40 mg tablet 40 mg PO DAILY RF: 0 calcium carbonate [Calcium 600] 600 mg calcium (1,500 mg) Tablet 1,200 mg PO DAILY RF: 0 [place] 3-6-9 Fatty Acids 400-400-200 mg Capsule PO RF: 0 Discharge Instructions Instructions: Chest Pain (ED) Additional Instructions: At this time you are asymptomatic and your laboratory values do not reveal any obvious emergent process. Given your age, presentation, and past medical history I have recommended admission for cardiac observation but you have declined. Please watch for new or worsening symptoms and return to the ER for any concerns. I personally spoke with [facility] and have made you an appointment at [address] Heller, please go to their office at [facility]. Discharge Data Discharge Date/Time-TO BE ENTERED AT DEPARTURE: 05/18/21 13:41 Medical Decision Making This is an 80-year-old male, past medical history that includes GERD, BPH, hypertension presenting for chest tightness over the past few days associated with sharp twinges last night and this morning bilateral anterior aspect. He is currently asymptomatic. Last had symptoms approximately 25 minutes ago. Unrelated to his chest pain he took Naprosyn for his chronic plantar fasciitis. He appears well, nontoxic, slightly hypertensive at 180/95 otherwise vital signs are unremarkable. Would like to initiate a cardiac work-up including D-dimer to rule out need for CTA, potential PE. There is no radiation of this pain, no ripping or tearing sensation, extremely low suspicion for dissection. 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 He is agreeable to awaiting a initial evaluation and repeat troponin and EKG. Blood pressure is trending down without any intervention. He remains asymptomatic. He is resting comfortably and reading a book. He has been ambulatory to the restroom without difficulty. Initial laboratory values do not reveal any obvious emergent process. D-dimer of 582 is negative when age- adjusted. Initial troponin less than 0.05. Depending on how you categorize his presentation his initial heart score is a 3 or 4. I did discuss this with him and given his age, comorbidities, I did feel as though admission was reasonable, I did recommend this. 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 He remains asymptomatic. He is going to stay in the ER for repeat troponin and EKG however if this is negative and he remains asymptomatic he does request that he is discharged home with the understanding to return to the ER for any new or worsening symptoms otherwise he will contact his primary care provider. Repeat troponin remains less than 0.05. Repeat EKG performed at 1214, please see official report by Dr. Mooney. Sinus bradycardia, ventricular to 57. No STEMI. I made patient aware of the findings, he remains asymptomatic and again is requesting discharge home. We did once again discussed my recommendations for admission but he does again declines. I contacted the patient's primary care facility and spoke with provider Mary Franco to close the loop on his care and attempt to help expedite outpatient follow-up and potential stress test and/or echocardiogram. She is aware of his presentation and desire to go home. She will make an appointment for him to be seen by Dr. Heller tomorrow at 3 PM, he will go to the office at 245. Patient is agreeable to this plan. Upon discharge he appears well, nontoxic, asymptomatic. Blood pressure is trending downward. Strict discharge and return precautions provided. This documentation was generated using [employer] system, please disregard any oddities of phrase or misspellings. Medical Records Medical records reviewed: Yes I reviewed the patient's medical records. Imaging Data Radiologic Study: Attestation: I personally reviewed and interpreted this imaging study as follows: Imaging: X-Ray Radiologist's impression: Exam(s) XR CHEST 2V PA LATERAL EXAM: XR CHEST 2V PA LATERAL CLINICAL HISTORY: chest pain. TECHNIQUE: 2D digital imaging was performed. COMPARISON: CR RIGHT RIBS TO INCLUDE CXR from 08/15/2011 FINDINGS: Heart size is normal. The mediastinum is not widened. Lungs are clear. No infiltrates nor pleural effusions. Tenting of the right hemidiaphragm unchanged. IMPRESSION: No acute pulmonary findings. Lab Data Lab results reviewed: Yes I reviewed the patient's lab results. Labs: Laboratory Tests Range/Units 05/18/21 05/18/21 05/18/21 09:33 09:33 09:46 WBC (4.4-10.8) 10^3/uL 4.95 RBC (4.36-5.78) 10^6/uL 4.59 Hgb (13.5-17.5) g/dL 15.2 Hct (40.0-50.0) % 43.9 MCV (80-95) fL 95.6 H MCH (27.0-33.0) pg 33.1 H MCHC (32.0-36.0) % 34.6 RDW (11.8-14.1) % 12.1 Plt Count (130-400) 10^3/uL 157 MPV (8.0-11.0) fL 10.8 Immature Gran % 0.4 Neutrophils % 59.6 Lymphocytes % 25.9 Monocytes % 10.1 Eosinophils % 3.4 Basophils % 0.6 Nucleated RBC % % 0 Absolute Neutrophils (1.2-6.7) 10^3/uL 2.95 Absolute Lymphocytes (1.2-3.4) 10^3/uL 1.28 Absolute Monocytes (0.1-0.8) 10^3/uL 0.50 Absolute Eosinophils (0.0-0.7) 10^3/uL 0.17 Absolute Basophils (0.0-0.2) 10^3/uL 0.03 PT (9.3-11.0) sec 11.4 H INR (0.9-1.1) 1.1 APTT (21.0-27.5) sec 23.4 D-Dimer (<500) ng/mlFEU 582 H Sodium (136-145) mmol/L 144 Potassium (3.5-5.1) mmol/L 4.2 Chloride (98-107) mmol/L 107 Carbon Dioxide (21.0-32.0) mmol/L 27.9 Anion Gap (3-11) mmol/L 9.1 BUN (7-18) mg/dL 15 Creatinine (0.70-1.30) mg/dL 0.9 Estimated GFR/1.73 m2 (mL/min/1.73m2) >= 60.00 Glucose (74-106) mg/dL 110 H Calcium (8.5-10.1) mg/dL 8.9 Magnesium (1.8-2.4) mg/dL 1.9 Total Bilirubin (0.2-1.0) mg/dL 0.8 AST (15-37) U/L 20 ALT (16-63) U/L 30 Alkaline Phosphatase (46-116) U/L 76 Troponin I (<0.06) ng/mL < 0.05 Total Protein (6.4-8.2) g/dL 7.0 Albumin (3.4-5.0) g/dL 4.0 Lipase (73-393) U/L 257 Range/Units 05/18/21 12:22 WBC (4.4-10.8) 10^3/uL RBC (4.36-5.78) 10^6/uL Hgb (13.5-17.5) g/dL Hct (40.0-50.0) % MCV (80-95) fL MCH (27.0-33.0) pg MCHC (32.0-36.0) % RDW (11.8-14.1) % Plt Count (130-400) 10^3/uL MPV (8.0-11.0) fL Immature Gran % Neutrophils % Lymphocytes % Monocytes % Eosinophils % Basophils % Nucleated RBC % % Absolute Neutrophils (1.2-6.7) 10^3/uL Absolute Lymphocytes (1.2-3.4) 10^3/uL Absolute Monocytes (0.1-0.8) 10^3/uL Absolute Eosinophils (0.0-0.7) 10^3/uL Absolute Basophils (0.0-0.2) 10^3/uL PT (9.3-11.0) sec INR (0.9-1.1) APTT (21.0-27.5) sec D-Dimer (<500) ng/mlFEU Sodium (136-145) mmol/L Potassium (3.5-5.1) mmol/L Chloride (98-107) mmol/L Carbon Dioxide (21.0-32.0) mmol/L Anion Gap (3-11) mmol/L BUN (7-18) mg/dL Creatinine (0.70-1.30) mg/dL Estimated GFR/1.73 m2 (mL/min/1.73m2) Glucose (74-106) mg/dL Calcium (8.5-10.1) mg/dL Magnesium (1.8-2.4) mg/dL Total Bilirubin (0.2-1.0) mg/dL AST (15-37) U/L ALT (16-63) U/L Alkaline Phosphatase (46-116) U/L Troponin I (<0.06) ng/mL < 0.05 Total Protein (6.4-8.2) g/dL Albumin (3.4-5.0) g/dL Lipase (73-393) U/L ECG Data Attestation: I personally reviewed and interpreted this ECG (s) as follows: Interpretation: Please see official report by Dr. Mooney. Sinus rhythm, ventricular rate of 75, no STEMI HPI General Mode of arrival: ambulatory . Date/Time Provider Initiated Documentation: 05/18/21 09:22 . Limitations to Documentation: no limitations . Information obtained by: patient . HPI Narrative: This is an 80-year-old male, past medical history that includes acid reflux, BPH, hypertension, proximal atrial fibrillation, presenting to the ER today for evaluation of chest tightness. Patient states that he has had dull chest tightness across the front of his chest and a 6 inch band intermittently for the past 4 days, nothing makes it worse or better. He states last night he had twinges of sharp pain both on his left and right inferior chest, subsequently had the same this morning which prompted him to come to the ER. Reports he is now asymptomatic, last symptomatic approximately 25 minutes ago. Patient states that he took a Naprosyn today for his plantar fasciitis but no other medications. He denies recent illness, sick contacts, trauma. Denies headache, fever, neck pain, cough, shortness of breath, back pain, radiation of the chest pain in any direction, abdominal pain, nausea, vomiting, change in bowel or bladder function, pain or swelling in his legs, numbness, tingling, weakness. Patient states that he did have a stress test several years ago because of acid reflux and states that that test was normal at that time. 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 Related Data Home Medications Medication Instructions Recorded Confirmed aspirin [Aspir-81] 81 mg PO DAILY tab-cap NS 10/05/13 03/14/21 carvedilol 3.125 mg tablet 3.125 mg PO BID 02/16/20 03/14/21 pravastatin 40 mg tablet 40 mg PO DAILY 02/16/20 03/14/21 [place] 3-6-9 Fatty Acids cap PO 03/10/20 03/14/21 calcium carbonate [Calcium 600] 1,200 mg PO DAILY 03/10/20 03/14/21 losartan 25 mg tablet 25 mg PO DAILY 12/19/20 03/14/21 B.anim-L.acid-L.saliv-L.plan-L.casei cap PO 03/14/21 03/14/21 10 billion cell(2 billion ea) cap allopurinol 100 mg tablet 100 mg PO BID 03/14/21 03/14/21 Allergies Allergy/AdvReac Type Severity Reaction Status Date / Time Penicillins Allergy Intermediate hives Unverified 05/18/21 09:28 sulfamethoxazole Allergy Unverified 05/18/21 09:28 [From ] trimethoprim [From ] Allergy Unverified 05/18/21 09:28 General Stated Complaint: Chest Pain LIANNE: 2 Review of Systems Constitutional Constitutional: Denies fatigue, Denies fever(s), Denies headache(s) and Denies weakness Eyes Eyes: Denies change in vision ENT Ears, Nose, Mouth, and Throat: Denies headache(s) and Denies neck pain Cardiovascular Cardiovascular: Reports chest pain and Denies dyspnea Respiratory Respiratory: Denies cough and Denies dyspnea Gastrointestinal Gastrointestinal: Denies abdominal pain, Denies nausea and Denies vomiting Genitourinary Genitourinary: Denies dysuria Musculoskeletal Musculoskeletal: Denies back pain, Denies neck pain, Denies numbness and Denies tingling Integumentary/Breasts Skin/Breast: Denies rash Neurologic Neurologic: Denies headache(s), Denies numbness, Denies tingling and Denies weakness Endocrine Endocrine: Denies fatigue Hematologic/Lymphatic Hematologic/Lymphatic: Denies easy bleeding and Denies easy bruising [facility] Medical History Acid reflux BPH (benign prostatic hyperplasia) Herpes History of adenomatous polyp of colon serrated features per PCP referral note Hypertension Left hip pain Melanoma in situ face Pruritic rash Sessile colonic polyp (~2017) Surgical History Bilateral inguinal hernias Colonoscopy - IV Sedation (01/11/17) History of knee replacement procedure of right knee Repair of umbilical hernia Social History Smoking/Tobacco Use Status: Former Tobacco Use Quit Date: 08/26/69 Smoking risk assessment performed?: Yes Alcohol Intake: current Alcohol Intake frequency: 0-2 drinks per day Alcohol type: wine Drug use: Never Substance use type: does not use Current gender identity: male Do you feel safe at home: Yes Do you feel safe in your relationship?: Yes Exam Const General: cooperative, healthy appearing, comfortable and no acute distress Orientation: alert, awake and oriented x3 HENMT Head: normal to inspection, normocephalic and atraumatic Face and sinus: normal facial exam Mouth: moist mucous membranes Eyes General: appearance normal, both eyes and all related structures Conjunctivae: conjunctivae normal Neck Neck: normal visual inspection, full ROM, trachea midline, supple and nontender Chest Chest: normal inspection of the chest and normal palpation of entire chest wall Resp Effort & Inspection: normal respiratory effort and able to speak in complete sentences Auscultation: clear to auscultation bilaterally Cardio Rate: regular rate Rhythm: regular rhythm GI Inspection: normal to inspection Palpation: soft, not firm, no guarding, no pulsatile masses and tender Auscultation: normal bowel sounds Back/Spine/Pelvis Back: no CVA tenderness and No back tenderness Skin General skin exam: no rashes or lesions noted Neuro General: patient alert, patient awake, patient oriented x3, moves all extremities and no focal motor deficits Cognition: normal cognition Speech: speech normal Gait: normal gait Motor: muscle tone normal throughout Sensory Exam: no sensory deficits noted Extrem General: normal to inspection, full ROM, capillary refill normal, no pedal edema and no calf tenderness Psych Appearance: grossly normal Mental Status: mental status grossly normal Course Vital Signs Vital signs: Vital Signs Temperature 36.7 C 05/18/21 09:24 Pulse 80 05/18/21 09:24 Respiratory Rate 23 05/18/21 09:24 Blood Pressure 180/95 H 05/18/21 09:24 Pulse Oximetry 96 05/18/21 09:24 Temperature 36.7 C 05/18/21 09:24 Temperature Source Skin 05/18/21 09:24 Pulse 75 05/18/21 09:31 Pulse 92 H 05/18/21 09:31 Respiratory Rate 19 05/18/21 09:30 Respiratory Effort Non-Labored 05/18/21 09:29 Respiratory Depth Normal 05/18/21 09:29 Respiratory Pattern Normal 05/18/21 09:29 Blood Pressure 171/86 H 05/18/21 09:31 Blood Pressure Mean 102 05/18/21 09:31 Blood Pressure Position Supine 05/18/21 09:24 Pulse Oximetry 95 05/18/21 09:31 Oxygen Delivery Method Room Air 05/18/21 09:24 Oxygen Flow Rate 0 05/18/21 09:24 Pain Level 10 05/18/21 09:29
[2021-05-18 10:13] LABS: INR 1.1 (0.9-1.1); PTT Activated 23.4 sec (21.0-27.5); Prothrombin Time 11.4 sec (9.3-11.0)
[2021-05-18 10:17] LABS: ALT 30 U/L (16-63); AST 20 U/L (15-37); Alkaline Phosphatase 76 U/L (46-116); Anion Gap 9.1 mmol/L (3-11); BUN 15 mg/dL (7-18); Bilirubin, Total 0.8 mg/dL (0.2-1.0); CO2 27.9 mmol/L (21.0-32.0); CREATININE 0.9 mg/dL (0.70-1.30); Calcium 8.9 mg/dL (8.5-10.1); Chloride 107 mmol/L (98-107); Glucose 110 mg/dL (74-106); Magnesium 1.9 mg/dL (1.8-2.4); Potassium 4.2 mmol/L (3.5-5.1); Sodium 144 mmol/L (136-145)
[2021-05-18 10:19] LABS: Troponin I < 0.05 ng/mL (<0.06)
[2021-05-18 10:25] LABS: Lipase 257 U/L (73-393)
[2021-05-18 10:28] LABS: D-Dimer 582 ng/mlFEU (<500)
[2021-05-18 12:51] LABS: Troponin I < 0.05 ng/mL (<0.06)
--- NOTE | 2021-05-18 13:00 | RT.EKG_ITS ---
APPROVED REPORT Exam: Resting ECG Reason for Exam: CHEST PAIN Patient Location: E HR:57 bpm ECG Measurements Heart Rate 57 AXIS CA 216 P 46 QRSd 94 QRS -27 QT 422 T 80 QTc 411 Conclusion Gender not entered, assumed to be male for purpose of ECG interpretation Sinus bradycardia...rate< 60 Borderline prolonged CA interval...CA >212, V-rate 50- 90 Anterior infarct, old...Q >40mS, abnormal ST-T, V2-V5. Sinus. No STEMI. I have reviewed and interpreted ECG and agree with software generated interpretation.
[2021-05-18] MEDS: Aspirin 81 MG CHEW 243 MG CH (13:43)
[2021-05-20 12:03] LABS: COVID-19 RT-PCR UVMMC Result Negative (Negative)
== END 2021-05-18 13:41 | disposition home or self-care (01) ==
PROVIDERS: Emergency Provider Physician Assistant; PCP Internal Medicine
DX: R07.89 Other chest pain (principal); I10 Essential (primary) hypertension; Z20.822 Contact with and (suspected) exposure to COVID-19
CPT/HCPCS: 36415; 80053; 83690; 93005; 99284; U0003; U0005; 71046; 83735; 84484; 85025; 85379; 85610; 85730; 93010

== ENCOUNTER → 2021-05-24 12:57 | Outpatient (BNVA) | payer MEDICARE, BC, SELFPAY | PROVIDERS: PCP Internal Medicine; Referring Provider Internal Medicine; Visit Provider Student in an Organized Health Care Education/Training Program | DX: M43.16 Spondylolisthesis, lumbar region (principal) | CPT/HCPCS: 99213 ==

== ENCOUNTER 2021-06-01 01:07 | Outpatient (CLI) | payer MEDICARE, BC, SELFPAY ==
--- NOTE | 2021-06-01 | DI.NM_ITS ---
APPROVED REPORT Exam: Exercise Treadmill Patient Location: Out-Patient Room/Bed: Stress Nurse: Janet Banerjee RN Ordering Provider:CLAUDIA BERMUDEZ, Contact Number: [phone] BMI: 27.31 Baseline Rhythm: Sinus Bradycardia Indications: Acute chest pain Medical History Medical History: Hypertension, hyperlipidemia, L hip pain, gerd, BPH Cardiac Medications: Aspirin, pravastatin, losartan, carvedilol Allergies: Penicillin, sulfa methoxazole, trimethoprim Cardiac Risk Factors: Hypertension, hyperlipidemia, smoker (former) Previous Cardiac Procedures: None Pretest Chest Pain Characteristics: None Exercise History: Physically active Physical Disabilities: None Lung Sounds: Clear to auscultation Heart Sounds: Regular Stress Test Details Test: Exercise stress testing was performed using a Vishnu protocol. Nuclear Acquisition: Rest Tc-99m/Stress Tc-99m 1 day Rest Isotope: Tc-99m Sestamibi. Dose: 9.8 Date: 06/01/2021 Injection Time: 0835 Stress Isotope: Tc-99m Sestamibi. Dose: 32.2 Date: 06/01/2021 Injection Time: 1015 HR Resting HR Supine: 57 bpm Max Heart Rate (APMHR): 139.244907 bpm Resting HR Standin bpm Target HR (85% APMHR): 118.395588 bpm Max HR Achieved: 145 bpm % of APMHR: 104.32 Recovery HR: 82 bpm HR response to stress: Normal HR response to stress Comment: Carvedilol held for 24 hrs BP Resting BP Supine: 146/90 mmHg Resting BP Standin/90 mmHg Max BP: 200/98 mmHg Recovery BP: 162/84 mmHg BP response to stress: Abnormal hypertensive response to stress. ECG Resting ECG: Sinus Bradycardia Ectopy: Rare PVC Stress ECG: Sinus Tachycardia ST Change: Horizontal ST depression, Upsloping ST depression Stage: [address] Deviation: 1 mm Arrhythmia: Occasional PAC and multifocal PVCs Recovery ECG: Sinus Rhythm Recovery ST Change: No significant ST segment changes noted Recovery Arrhythmia: Frequent PACs, occasional multifocal PVCs, couplet Clinical Reason for Termination: Fatigue Stress Symptoms: General Fatigue Exercise duration: 8 min11 sec Highest Stage Reached: 3 Exercise capacity: 10.16 METs Galvan Treadmill Score: 7.3 Rate Pressure Product: 52516 Stress ECG Conclusion 1. Resting electrocardiogram showed diffuse nondiagnostic ST-T abnormalities, poor R wave progression 2. Patient exercised on the Vishnu protocol and completed a workload of 10.16 METS, limited by fatigue 3. Normal heart rate and blood pressure response to exercise. Patient achieved greater than 100% of predicted heart rate for age 4. At peak exercise there was J-point depression with upsloping ST segments, not consistent with myoc ardial ischemia 5. Atrial and ventricular ectopic beats were noted throughout Galvan Treadmill Score is 7.3 which is Low risk. Stress Test Summary STAGE Time (mins) Speed (mph) Grade (%) HR BP SYMPTOMS METS Supine 57 146/90 Standing 63 164/90 SpO2 95% 1 3 1.7 10 99 158/90 SpO2 94% 4.6 2 6 2.5 12 110 178/96 SpO2 94% 7 3 9 3.4 14 143 SpO2 94% 10.2 1 min recovery 121 188/104 SpO2 97% 3 min recovery 83 200/98 6 min recovery 75 172/86 9 min recovery 82 162/84 MPI Conclusion Myocardial perfusion appears normal, without evidence of ischemia or prior infarction EF 57% Radiologist Interpretation Radiologist Interpretation by: Eb Hernandez MD Interpretation Date/Time: 06/01/2021 16:40:02
== END 2021-06-01 01:27 ==
PROVIDERS: PCP Internal Medicine; Visit Provider Family Medicine
DX: R07.89 Other chest pain (principal); I10 Essential (primary) hypertension; E78.5 Hyperlipidemia, unspecified; Z87.891 Personal history of nicotine dependence; I49.1 Atrial premature depolarization; I49.3 Ventricular premature depolarization
CPT/HCPCS: 78452; 93016; 93018; 93017

== ENCOUNTER 2021-11-20 01:05 | Outpatient (CLI) | payer MEDICARE, SELFPAY ==
--- NOTE | 2021-11-20 07:15 | DI.MRI_ITS ---
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 TECHNIQUE: Multiplanar multisequence MRI of the Lumbar spine was performed. COMPARISON: CT ABD PELVIS WITH CONTRAST from 04/03/2016 CR XR LUMBAR SPINE AP, LAT from 03/14/2021 CR XR CHEST 2V PA LATERAL from 05/18/2021 FINDINGS: Bones: The last intervertebral disc space is designated the L5/S1 level for the numbering purpose of this examination. The vertebral body heights are well maintained. . The marrow signal shows red mar row reconversion and degenerative signal changes in the endplates greatest at L5-S1.. No suspicious lesions. Cord: The conus tip ends at the T12 level. It is of normal size and signal intensity. T11-12: Small endplate osteophytes and facet degenerative changes combining to produce mild left and severe right neural foraminal narrowing. T12-L1: No disc herniations or bulges are present. No central spinal canal or neural foraminal stenos is. L1-2: Moderate to severe loss of disc height. Circumferential disc osteophytes. No significant neur al foraminal narrowing or central canal stenosis. L2-3: Severe loss of disc height. Broad-based disc osteophytes. Moderate to severe right and mild l eft neural foraminal narrowing. Mild central canal stenosis. L3-4: Moderate severe loss of disc height, eccentric toward the right. Severe bilateral neural joao inal narrowing. Mild central canal stenosis.. L4-5: Moderate loss of disc height. Broad-based disc osteophytes. Prominent facet degenerative forde ges. Mild spondylolisthesis. Severe central canal stenosis and severe bilateral neural foraminal na rrowing, right greater than left. L5-S1: Severe disc space narrowing. Broad-based disc osteophytes. Facet degenerative changes, right greater than left. Severe bilateral neural foraminal narrowing. No significant central canal steno sis. The visualized SI joints and sacrum are well maintained. Soft tissues: The paraspinal soft tissues are unremarkable. IMPRESSION: Severe degenerative disc changes at multiple levels causing multi lateral bilateral neural foraminal narrowing. No disc herniation.. Facet degenerative changes are most severe at L4-5 where there is s pondylolisthesis, severe central canal stenosis as well as severe bilateral neural foraminal narrowin noe. DATA REPOSITORY:
== END 2021-11-20 01:25 ==
PROVIDERS: PCP Internal Medicine; Visit Provider Preventive Medicine Occupational Medicine
DX: M51.17 Intervertebral disc disorders with radiculopathy, lumbosacral region; M47.27 Other spondylosis with radiculopathy, lumbosacral region; M43.16 Spondylolisthesis, lumbar region; M99.83 Other biomechanical lesions of lumbar region
CPT/HCPCS: 72148

== ENCOUNTER 2021-11-22 15:18 | Outpatient (REF) | payer MEDICARE, SELFPAY ==
[2021-11-22 16:27] LABS: ESR 7 mm/hr (0-20)
[2021-11-22 16:52] LABS: Abs Immature Grans 0.02 10^3/uL (0.0-0.06); Absolute Basophil Count 0.04 10^3/uL (0.0-0.2); Absolute Eosinophil Count 0.11 10^3/uL (0.0-0.7); Absolute Lymphocyte Count 1.31 10^3/uL (1.2-3.4); Absolute Monocyte Count 0.76 10^3/uL (0.1-0.8); Absolute Neutrophil Count 5.07 10^3/uL (1.2-6.7); Basophils % 0.5; Eosinophils % 1.5; HCT 42.5 % (40.0-50.0); HGB 14.3 g/dL (13.5-17.5); Immature Grans % 0.3; Lymphocytes % 17.9; MCH 32.5 pg (27.0-33.0); MCHC 33.6 % (32.0-36.0); MCV 96.6 fL (80-95); MPV 11.5 fL (8.0-11.0); Monocytes % 10.4; Neutrophils % 69.4; Nucleated RBC 0 %; Platelet Count 173 10^3/uL (130-400); RDW 11.9 % (11.8-14.1); RDW-SD 42.1 fL; WBC 7.31 10^3/uL (4.4-10.8)
[2021-11-22 17:03] LABS: ALT 23 U/L (16-63); AST 17 U/L (15-37); Albumin 3.6 g/dL (3.4-5.0); Alkaline Phosphatase 74 U/L (46-116); Anion Gap 10.2 mmol/L (3-11); BUN 20 mg/dL (7-18); Bilirubin, Total 0.6 mg/dL (0.2-1.0); CO2 24.8 mmol/L (21.0-32.0); Calcium 8.7 mg/dL (8.5-10.1); Chloride 106 mmol/L (98-107); Glucose 122 mg/dL (74-106); Potassium 4.2 mmol/L (3.5-5.1); Sodium 141 mmol/L (136-145); Total Protein 6.8 g/dL (6.4-8.2)
[2021-11-22 21:51] LABS: Rheumatoid Factor <8.6 IU/mL (<12.0)
[2021-11-23 09:02] LABS: Cyclic Citrullinated Peptide <2.5 U/mL (<5.0)
[2021-11-23 10:22] LABS: Lyme Ab w Rflx to Lyme Confirm Negative (Negative)
[2021-11-24 17:20] LABS: Anaplasma phagocytophilum Negative (Negative); B. miyamotoi PCR Negative (Negative); Babesia divergens/MO-1 Negative (Negative); Babesia duncani Negative (Negative); Babesia microti Negative (Negative); Ehrlichia chaffeensis Negative (Negative); Ehrlichia ewingii/canis Negative (Negative); Ehrlichia muris eauclairensis Negative (Negative)
== END 2021-11-22 15:19 | disposition home or self-care (01) ==
LOC: NCHCN 15:18
PROVIDERS: PCP Internal Medicine; Visit Provider Family Medicine
DX: M25.50 Pain in unspecified joint (principal)
CPT/HCPCS: 80053; 85652; 86200; 87798; 85025; 86431; 86618

== ENCOUNTER 2021-12-15 08:05 | Emergency (ER) | payer MEDICARE, SELFPAY ==
[2021-12-15] VITALS (36 sets, daily range): BP systolic 100–154; BP diastolic 57–97; PULSE 67–111; RESP 12–24; TEMP 36.6–36.7; O2SAT 92–97
--- NOTE | 2021-12-15 07:45 | RT.EKG_ITS ---
APPROVED REPORT Exam: Resting ECG Reason for Exam: Syncope Patient Location: E HR:70 bpm ECG Measurements Heart Rate 70 AXIS ME 191 P 34 QRSd 97 QRS -24 QT 408 T 87 QTc 441 Conclusion Sinus rhythm...normal P axis, V-rate 60- 99 Anterior infarct, old...Q >40mS, abnormal ST-T, V2-V5. Sinus. No STEMI. I have reviewed and interpreted ECG and agree with software generated interpretation.
[2021-12-15 08:21] LABS: Abs Immature Grans 0.05 10^3/uL (0.0-0.06); Absolute Basophil Count 0.03 10^3/uL (0.0-0.2); Absolute Lymphocyte Count 1.12 10^3/uL (1.2-3.4); Absolute Monocyte Count 0.77 10^3/uL (0.1-0.8); Absolute Neutrophil Count 6.08 10^3/uL (1.2-6.7); Basophils % 0.4; Eosinophils % 1.2; HCT 41.2 % (40.0-50.0); Immature Grans % 0.6; Lymphocytes % 13.7; MCH 32.8 pg (27.0-33.0); MCV 96.5 fL (80-95); Monocytes % 9.4; Neutrophils % 74.7; Platelet Count 198 10^3/uL (130-400); RBC 4.27 10^6/uL (4.36-5.78); RDW 11.9 % (11.8-14.1); RDW-SD 41.7 fL; WBC 8.15 10^3/uL (4.4-10.8)
--- NOTE | 2021-12-15 08:43 | DI.RAD_ITS ---
Exam(s) XR CHEST 1V IN DI DEPT EXAM: XR CHEST 1V IN DI DEPT CLINICAL HISTORY: syncope TECHNIQUE: 2D digital imaging was performed. COMPARISON: CR XR CHEST 2V PA LATERAL from 05/18/2021 FINDINGS: LUNGS: Clear. No pleural abnormality seen. HEART: Normal. MEDIASTINUM: Normal. BONES: Unremarkable. IMPRESSION: No acute pulmonary findings. DATA REPOSITORY: RADIATION DOSE DELIVERED:
[2021-12-15 08:45] LABS: ALT 23 U/L (16-63); AST 15 U/L (15-37); Albumin 3.5 g/dL (3.4-5.0); Alkaline Phosphatase 81 U/L (46-116); Anion Gap 7.2 mmol/L (3-11); BUN 15 mg/dL (7-18); Bilirubin, Total 0.9 mg/dL (0.2-1.0); CO2 25.8 mmol/L (21.0-32.0); CREATININE 0.9 mg/dL (0.70-1.30); Calcium 8.7 mg/dL (8.5-10.1); Chloride 105 mmol/L (98-107); Creatine Kinase 41 U/L (39-308); Glucose 138 mg/dL (74-106); Sodium 138 mmol/L (136-145); TSH 3.14 uIU/mL (0.36-3.74); Total Protein 7.1 g/dL (6.4-8.2); Troponin I < 50 ng/L (<or=60)
--- NOTE | 2021-12-15 08:55 | W.ED.GENAD ---
Discharge Plan Disposition Patient Disposition: HOME Condition: Stable Discharge Details Clinical Impression: Arthralgia, Syncope Primary Care Provider: Logan Kauffman ED Provider: Yulissa Bay Home Meds and New Rx's Prescriptions: New prednisone 5 mg tablet 15 mg PO DAILY Qty: 30 0RF Rx Instructions: take 3 tabs daily for 7 days, then taper to 10 mg for 2 days, and 5 mg for 3 days and discontinue Continued losartan 25 mg tablet 25 mg PO DAILY 0RF L.acid,casei,plant,saliv-B.ani 10 billion cell (2 billion ea) capsule PO 0RF allopurinol 100 mg tablet 100 mg PO BID 0RF famotidine [Pepcid] 40 mg tablet 40 mg PO QHS 0RF aspirin [Aspir-81] 81 MG tablet,delayed release (DR/EC) 81 mg PO DAILY 0RF carvedilol 3.125 mg tablet 3.125 mg PO BID 0RF Rx Instructions: must administer with a meal/food pravastatin 40 mg tablet 40 mg PO DAILY 0RF calcium carbonate [Calcium 600] 600 mg calcium (1,500 mg) Tablet 1,200 mg PO DAILY 0RF Label Comments: pt. states he now take famotidine [place] 3-6-9 Fatty Acids 400-400-200 mg Capsule PO 0RF Discharge Instructions Instructions: Syncope (ED) Additional Instructions: Take prednisone daily, talk to your doctor about a rheumatology referral to [facility] Recommend recheck with your primary care physician on Saturday Take 15 mg of prednisone daily and taper off as instructed on label Please return immediately should you have new or worsening complaints Use caution when going from sitting to standing Wear your Holter monitor and return as instructed Use caution in shower and bath do not harm yourself Referrals: Logan Kauffman MD [Primary Care Provider] - Medical Decision Making Patient symptomatically improved, he is alert and oriented and at his baseline He is ambulatory with steady gait His diagnostic labs are reassuring, CRP mildly elevated His exam is concerning for polymyalgia rheumatica although there are many other differentials and patient will need follow-up with rheumatology in the outpatient setting I suspect that his episode of syncope today was vasovagal in nature given that he had increased pain this morning when he awoke and therefore I will empirically start him on 15 mg of prednisone daily for the next week to see if that helps with symptoms and he will need further management by his primary care physician He should have repeat appointment on Saturday He had 2 negative troponins and 2 EKGs that do not show acute abnormality CTA of head and neck are reassuring per radiology interpretation my review There is no evidence of cervical spine fracture He has a nonfocal neurological exam is ambulatory with steady gait with negative orthostatics and feeling symptomatically improved Will be discharged home in the care of his Return precautions discussed and patient expressed understanding [place] syncope and [id number] patient very low risk for decompensation Patient was initiated with Holter monitor at discharge Temperature was 36.3 at time of discharge, there was an accidental documentation of 33.6 temperature and repeat blood pressure is 120/87, this was taken by me Medical Records Medical records reviewed: Yes I reviewed the patient's medical records. Lab Data Lab results reviewed: Yes I reviewed the patient's lab results. ECG Data Prior ECG tracings: available for review HPI General Date/Time Provider Initiated Documentation: 12/15/21 08:39. HPI Narrative: This 87-year-old gentleman presents with past medical history of hypertension, hyperlipidemia who presents with report of syncope. He had a brief period of loss of consciousness but she does not recall. He states that he went to take a shower and the next thing he remembers was getting himself up off the ground. He denies any fever or chills. He states he has had predominantly pain to his shoulders, elbows, and wrists for the past 2 weeks. He has been evaluated at his PCP for this finding. He denies prior history of similar symptoms in the past. He denies any tunnel vision, dizziness, weakness. He denies any recollection of the events of today aside from waking up and having some slightly increased pain. He denies any urinary symptoms. He denies any palpitations. Related Data Home Medications Medication Instructions Recorded Confirmed Aspir-81 81 mg tablet,delayed 81 mg PO DAILY tab-cap NS 10/05/13 12/15/21 release (aspirin) carvedilol 3.125 mg tablet 3.125 mg PO BID 02/16/20 12/15/21 pravastatin 40 mg tablet 40 mg PO DAILY 02/16/20 12/15/21 calcium carbonate 600 mg calcium 1,200 mg PO DAILY 03/10/20 12/15/21 (1,500 mg) tablet (Calcium) fish,flax,primrose,borag cap PO 03/10/20 11/01/21 oils-om3,6,9 no5 400 mg-400 mg-200 mg capsule ([place] 3-6-9 Fatty Acids) losartan 25 mg tablet 25 mg PO DAILY 12/19/20 12/15/21 L.acid,casei,plant,saliv-B.anim 10 cap PO 03/14/21 11/01/21 billion cell (2 billion ea) capsule allopurinol 100 mg tablet 100 mg PO BID tab 10/23/21 12/15/21 famotidine 40 mg tablet (Pepcid) 40 mg PO QHS 10/23/21 12/15/21 prednisone 5 mg tablet 15 mg PO DAILY #30 tab 12/15/21 Previous Rx's Medication Instructions Recorded prednisone 5 mg tablet 15 mg PO DAILY #30 tab 12/15/21 Allergies Allergy/AdvReac Type Severity Reaction Status Date / Time Penicillins Allergy Intermediate hives Verified 12/15/21 08:17 sulfamethoxazole Allergy Verified 12/15/21 08:17 [From ] trimethoprim [From ] Allergy Verified 12/15/21 08:17 General Stated Complaint: Dizzy/Sync LIANNE: 2 Review of Systems All systems reviewed & are unremarkable except as noted in HPI and below PFSH All Active Problems (Updated 12/15/21 @ 12:00 by WILLIS Clifton) Arthralgia (Acute) Syncope (Chronic) Syncope (Chronic) Lumbar radiculitis (Acute) Maxilla pain (Acute) Ear fullness (Acute) Sensorineural hearing loss, bilateral (Acute) Chest pressure (Acute) Spondylolysis, 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 (Acute) Trochanteric bursitis, left hip (Acute) Personal history of colonic polyps (Acute) Medical History Acid reflux Acute gouty arthropathy Adenomatous colon polyp (01/11/17) sessile serrated, cecum Allergic rhinitis BPH (benign prostatic hyperplasia) Bunion, left foot Chronic neck pain DDD (degenerative disc disease), lumbar DJD (degenerative joint disease) of knee Dupuytren's contracture Gout Hammer toe Herpes Herpetic dermatitis History of adenomatous polyp of colon serrated features per PCP referral note Hyperlipidemia Hypertension Intermittent palpitations Lactose intolerance Left hip pain Melanoma in situ face Nonsustained ventricular tachycardia Osteoarthritis Pruritic rash Sensory hearing loss, bilateral (07/20/13) Sessile colonic polyp (~2017) Skin lesion of face Spondylolisthesis Trigger finger Surgical History Bilateral inguinal hernias Colonoscopy - IV Sedation (01/11/17) History of knee replacement procedure of right knee History of tonsillectomy and adenoidectomy Repair of umbilical hernia Social History Smoking/Tobacco Use Status: Former Tobacco Use Quit Date: 08/26/69 Smoking risk assessment performed?: Yes Alcohol Intake: current Alcohol Intake frequency: 0-2 drinks per day Alcohol type: wine Drug use: Never Substance use type: does not use Current gender identity: male Do you feel safe at home: Yes Do you feel safe in your relationship?: Yes Exam Const General: cooperative, comfortable and no acute distress HENMT Head: normal to inspection Mouth: oral mucosae normal Other: oral mucosa moist uvula midline Eyes Pupils: PERRL Neck Other: no midline tenderness no carotid bruit Resp Effort & Inspection: normal respiratory effort Auscultation: clear to auscultation bilaterally Cardio Rate: regular rate Rhythm: regular rhythm Heart Sounds: no murmurs GI Inspection: normal to inspection Other: non-tender abdominal exam no abdominal bruit or pulsatile mass Skin General skin exam: no rashes or lesions noted Neuro General: patient alert and patient oriented x3 Cranial Nerves: CN's II-XI intact bilaterally Cognition: normal cognition Speech: speech normal Gait: normal gait Motor: muscle tone normal throughout and strength 5/5 throughout Sensory Exam: no sensory deficits noted Extrem General: normal to inspection Other: distal pulses intact no visible signs of trauma Course Vital Signs Vital signs: Vital Signs Temperature 36.7 C 12/15/21 08:05 Pulse 71 12/15/21 08:05 Respiratory Rate 16 12/15/21 08:05 Blood Pressure 140/78 12/15/21 08:05 Pulse Oximetry 97 12/15/21 08:05 Temperature 36.7 C 12/15/21 08:05 Temperature Source Temporal Artery Scan 12/15/21 08:05 Pulse 71 12/15/21 08:05 Respiratory Rate 20 04/22/22 08:26 Respiratory Effort 12/15/21 08:26 Respiratory Depth Normal 12/15/21 08:26 Respiratory Pattern Normal 12/15/21 08:26 Blood Pressure 140/78 12/15/21 08:05 Pulse Oximetry 97 12/15/21 08:05 Oxygen Delivery Method Room Air 12/15/21 08:05 Oxygen Flow Rate 0 12/15/21 08:05 Lab/Test Results Lab/Test Results: Laboratory Tests Range/Units 12/15/21 12/15/21 08:15 08:15 WBC (4.4-10.8) 10^3/uL 8.15 RBC (4.36-5.78) 10^6/uL 4.27 L Hgb (13.5-17.5) g/dL 14.0 Hct (40.0-50.0) % 41.2 MCV (80-95) fL 96.5 H MCH (27.0-33.0) pg 32.8 MCHC (32.0-36.0) % 34.0 RDW (11.8-14.1) % 11.9 Plt Count (130-400) 10^3/uL 198 MPV (8.0-11.0) fL 10.0 Immature Gran % 0.6 Neutrophils % 74.7 Lymphocytes % 13.7 Monocytes % 9.4 Eosinophils % 1.2 Basophils % 0.4 Nucleated RBC % (0.0-0.3) % 0.0 Absolute Neutrophils (1.2-6.7) 10^3/uL 6.08 Absolute Lymphocytes (1.2-3.4) 10^3/uL 1.12 L Absolute Monocytes (0.1-0.8) 10^3/uL 0.77 Absolute Eosinophils (0.0-0.7) 10^3/uL 0.10 Absolute Basophils (0.0-0.2) 10^3/uL 0.03 Sodium (136-145) mmol/L 138 Potassium (3.5-5.1) mmol/L 4.0 Chloride (98-107) mmol/L 105 Carbon Dioxide (21.0-32.0) mmol/L 25.8 Anion Gap (3-11) mmol/L 7.2 BUN (7-18) mg/dL 15 Creatinine (0.70-1.30) mg/dL 0.9 Estimated GFR/1.73 m2 (mL/min/1.73m2) >= 60.00 Glucose (74-106) mg/dL 138 H Calcium (8.5-10.1) mg/dL 8.7 Magnesium (1.8-2.4) mg/dL 2.0 Total Bilirubin (0.2-1.0) mg/dL 0.9 AST (15-37) U/L 15 ALT (16-63) U/L 23 Alkaline Phosphatase (46-116) U/L 81 Creatine Kinase (39-308) U/L 41 Troponin I (<or=60) ng/L < 50 Total Protein (6.4-8.2) g/dL 7.1 Albumin (3.4-5.0) g/dL 3.5 TSH (0.36-3.74) uIU/mL 3.14
--- NOTE | 2021-12-15 10:06 | DI.CT_ITS ---
Exam(s) CT CERVICAL SPINE WO CT BRAIN NECK CTA EXAM: CT BRAIN NECK CTA CLINICAL HISTORY: LOC, neck pain. TECHNIQUE: Imaging Protocol: Axial CT angiography was performed with multi-slice acquisition and mu lti-planar and/or 3D reconstructions. CONTRAST MATERIAL: Intravenous: Omnipaque 350 Contrast volume:85 ml COMPARISON: CT CT CERVICAL SPINE WO from 12/15/2021 FINDINGS: CT Head W/O and W contrast: Ventricles and Extra axial spaces: Normal in size and morphology for the patient's age. Hemorrhage: None. Cerebral parenchyma: While mild white matter changes of small vessel disease. Basal ganglia calcifica tions. Mild atrophy. Midline shift: None. Brainstem/Cerebellum: Normal. Calvarium: Normal. Visualized Paranasal sinuses/Mastoids: Clear. Soft Tissues: Unremarkable. Enhancement: Normal. CTA Brain W: Internal Carotid Arteries: Petrous: Normal. Cavernous: Normal. Cerebral: Normal. Middle Cerebral Arteries: Right: No aneurysm, occlusion or significant stenosis. Left: No aneurysm, occlusion or significant stenosis. Anterior Cerebral Arteries: Right: No aneurysm, occlusion or significant stenosis. Left: No aneurysm, occlusion or significant stenosis. Posterior cerebral Arteries: Right: No aneurysm, occlusion or significant stenosis. Left: No aneurysm, occlusion or significant stenosis. Vertebral Arteries: Right: No aneurysm, occlusion or significant stenosis. Left: No aneurysm, occlusion or significant stenosis. Basilar Artery: No aneurysm, occlusion or significant stenosis. CTA Neck W: Common Carotid: Right: No aneurysm, occlusion or significant stenosis. Mild calcification at the bulb. Left: No aneurysm, occlusion or significant stenosis. Mild calcification at the bulb. External Carotid: Right: No aneurysm, occlusion or significant stenosis. Left: No aneurysm, occlusion or significant stenosis. Internal Carotid: Right: No aneurysm, occlusion or significant stenosis. Left: No aneurysm, occlusion or significant stenosis. Vertebral Artery: Right: No aneurysm, occlusion or significant stenosis. Left: No aneurysm, occlusion or significant stenosis. Lung Apices: Respiratory motion. Bones: Severe disc space narrowing C3-4 through C6-7. Facet degenerative changes are also present. Soft Tissues: Normal. IMPRESSION: 1. Normal CTA examination of the [place]. 2. Unremarkable CT Head for patient's age. 3. CTA examination of the neck: Minimal calcific plaque at the common carotid bulbs. No significant stenosis or evidence of dissection.. 4. Degenerative changes in the cervical spine. No evidence of fracture. RADIATION DOSE DELIVERED: Total DLP DATA REPOSITORY: All CT scans at this facility are submitted to the National Radiology Data Registry (NRDR) Dose Index Registry (DIR) with the [employer] (ACR). RADIATION OPTIMIZATION: All CT scans at this facility use at least one of these dose optimization te chniques: automated exposure control; mA and/or kV adjustment per patient size (includes targeted exa ms where dose is matched to clinical indication); or iterative reconstruction.
[2021-12-15] MEDS: Omnipaque 350 MG/ML 100 ML BTL 85 ML IJ (10:09)
--- NOTE | 2021-12-15 10:45 | RT.EKG_ITS ---
APPROVED REPORT Exam: Resting ECG Reason for Exam: REPEAT EKG Patient Location: E HR:78 bpm ECG Measurements Heart Rate 78 AXIS CO 196 P 40 QRSd 95 QRS -31 QT 387 T 101 QTc 443 Conclusion Sinus rhythm...normal P axis, V-rate 60- 99 Left axis deviation...QRS axis (-30,-90) Anterior infarct, old...Q >40mS, abnormal ST-T, V2-V5 Nonspecific T abnormalities, lateral leads...T <-0.10mV, I aVL V5 V6. Sinus. No STEMI. I have reviewed and interpreted ECG and agree with software generated interpretation.
[2021-12-15 10:50] LABS: Bilirubin Negative (Negative); Blood Negative (Negative); Clarity Clear (Clear); Glucose Negative (Negative); Ketones Negative (Negative); Leukocyte Esterase Negative (Negative); Nitrite Negative (Negative); Specific Gravity 1.015 (1.005-1.025); Urobilinogen 0.2 EU/dL (Up TO 0.2)
[2021-12-15 11:30] LABS: Troponin I < 50 ng/L (<or=60)
--- NOTE | 2021-12-15 13:30 | NUR.NOTE ---
Nursing Note: PT INFO GIVEN TO PCP TO BE SEEN EDUARDO FOR SYNCOPE. KONRAD, ED
== END 2021-12-15 12:48 | disposition home or self-care (01) ==
PROVIDERS: Emergency Provider Physician Assistant; PCP Internal Medicine
DX: M54.2 Cervicalgia; R55 Syncope and collapse; M25.512 Pain in left shoulder; M25.511 Pain in right shoulder; M25.522 Pain in left elbow; M25.532 Pain in left wrist; M25.531 Pain in right wrist; I10 Essential (primary) hypertension
CPT/HCPCS: 36415; 70496; 70498; 80053; 82550; 93005; 99285; 71045; 72125; 81003; 83735; 84443; 84484; 85025; 86140; 93010; J3490

== ENCOUNTER 2021-12-15 12:03 | Outpatient (RCR) | payer MEDICARE, SELFPAY ==
--- NOTE | 2021-12-15 13:30 | HOLTER_ITS ---
APPROVED REPORT Conclusion This is a 48-hour Holter monitor ordered for syncope Predominant rhythm was sinus with an average heart rate of 74. Minimum was 57, maximum 105 There were rare ventricular ectopic beats and ventricular couplets There were occasional atrial premature beats There were multiple self-limited atrial runs the longest of which was 7 beats in duration There was no atrial fibrillation, no high-grade AV block, no pauses greater than 3 seconds No patient symptoms were reported
== END 2021-12-23 23:59 | disposition home or self-care (01) ==
LOC: RT 12:03
PROVIDERS: PCP Internal Medicine; Visit Provider Physician Assistant
DX: R55 Syncope and collapse (principal); I49.1 Atrial premature depolarization
CPT/HCPCS: 93227; 93246; 93225; 93226

== ENCOUNTER 2021-12-27 08:51 | Outpatient (CLI) | payer MEDICARE, SELFPAY | END 2021-12-27 08:52 | disposition home or self-care (01) | LOC: DIORS 08:51 | PROVIDERS: PCP Internal Medicine; Referring Provider Internal Medicine; Visit Provider Student in an Organized Health Care Education/Training Program | DX: M25.511 Pain in right shoulder; M35.3 Polymyalgia rheumatica | CPT/HCPCS: 99214 ==

== ENCOUNTER → 2022-02-14 14:01 | Outpatient (BNVA) | payer MEDICARE, SELFPAY | PROVIDERS: PCP Internal Medicine; Referring Provider Internal Medicine; Visit Provider Nurse Practitioner Adult Health | DX: G56.01 Carpal tunnel syndrome, right upper limb (principal); B02.9 Zoster without complications | CPT/HCPCS: 95908; 99203; 99214 ==

== ENCOUNTER 2022-02-15 10:24 | Outpatient (CLI) | payer MEDICARE, SELFPAY ==
--- NOTE | 2022-02-15 06:00 | DI.RAD_ITS ---
Exam(s) XR PAIN CLINIC LUMBAR SP 2V EXAM: XR PAIN CLINIC LUMBAR SP 2V CLINICAL HISTORY: Dx: Lumbar Radiculopathy. TECHNIQUE: Fluoroscopy was provided for the referring physician for guidance with performing pain cl inic injection procedure. COMPARISON: No exams were available for comparison FINDINGS: Lumbar spine transforaminal injection. Please see procedure note for details. Fluoro time: 50.8 seconds RADIATION DOSE DELIVERED: Ka,r=16.62 mGy
[2022-02-15 10:32] VITALS: BP 145/82; PULSE 64; RESP 20; TEMP 36.4; O2SAT 95
[2022-02-15] MEDS: Dexamethasone Sod. Phos./Pres-Free 10 MG/ML VIAL IJ (11:39)
[2022-02-15] MEDS: Omnipaque 240 MG/ML 50 ML BTL IJ (11:39)
[2022-02-15 11:44] VITALS: BP 151/75; PULSE 65; RESP 22; O2SAT 95
--- NOTE | 2022-02-15 12:13 | PDOC.PAIN ---
Pain Clinic Procedure Note Procedure Note Procedure Note: LUMBAR / SACRAL TRANSFORAMINAL INJECTION Tae Kahn has been referred to the [facility] for a transforaminal nerve root block and steroid injection. COMMENTS: I previously evaluated him in the office on 11/01/21. Pre-procedure pain VAS = 7/10. He is on 7 mg/day of oral Prednisone for PMR. He also has a shingles rash to the right chest. No open wounds. Ok to proceed. Dx: Lumbar radiculopathy Patient was interviewed and the medical record reviewed. There were no medical, pharmacologic, radiographic or other structural contraindications to attempting fluoroscopically guided transforaminal nerve root block and epidural steroid injection. Risks and expected side effects as well as potential benefit of the procedure were reviewed and voiced concerns addressed. The printed consent form was signed and witnessed. Standard time-out procedure was performed. Patient was placed in the prone position on the fluoroscopy table and automated blood pressure cuff and pulse oximeter applied. Fluoroscopy was utilized to identify the left L4 neural foramen between L4 and L5. A skin konstantin was made for the needle insertion site. A Chlorhexadine prep was carried out, and sterile drapes were applied. Local anesthesia was achieved in the skin and subcutaneous tissues. A 22 gauge curved tip spinal needle was then inserted, advanced with fluoroscopic guidance into the neural foramen, confirmed on the lateral view. After negative aspiration, 2 ml of Omnipaque 240 was injected confirming position in A/P and lateral views. This showed a good spread of dye transforaminally into the epidural space. There was no vascular update with contrast injection under continuous fluoroscopy and digital substraction. 10 mg of Dexamethasone was injected, followed by 0.5 ml of 1% Xylocaine flush for the nerve root block, as well. There was no unusual discomfort expressed.The needle was withdrawn. The patient tolerated the procedure well. A Band-Aid was applied. Vital signs were stable throughout the procedure and were as recorded in nursing records. If given, dosages of intravenous drugs for anxiolysis and analgesia were documented in nursing records. Follow up plans and appointments were discussed. Post procedure instruction was given as documented in nursing records and patient was discharged in the care of an identified local company flatbed truck driver. COMMENTS:Post-procedure pain VAS = 0/10. Aldo Mcintyre DO, MPH [facility]-Pain Management [facility] CC: Logan Kauffman
== END 2022-02-15 10:25 | disposition home or self-care (01) ==
LOC: PC 10:24
PROVIDERS: PCP Internal Medicine; Visit Provider Preventive Medicine Occupational Medicine
DX: M54.16 Radiculopathy, lumbar region (principal)
CPT/HCPCS: 64483; 72100; Q9967

== ENCOUNTER 2022-03-05 15:26 | Outpatient (REF) | payer MEDICARE, SELFPAY ==
[2022-03-05 15:52] LABS: Glucose 100 mg/dL (74-106)
== END 2022-03-05 15:27 | disposition home or self-care (01) ==
LOC: NCHCN 15:26
PROVIDERS: PCP Internal Medicine; Visit Provider Internal Medicine
DX: R35.0 Frequency of micturition (principal)
CPT/HCPCS: 82947

== ENCOUNTER 2022-05-09 09:25 | Outpatient (REF) | payer MEDICARE, SELFPAY ==
[2022-05-10 19:45] LABS: PSA, Screening 3.5 ng/mL (<=6.5)
== END 2022-05-09 09:26 | disposition home or self-care (01) ==
LOC: NCHCN 09:25
PROVIDERS: PCP Internal Medicine; Visit Provider Internal Medicine
DX: N40.0 Benign prostatic hyperplasia without lower urinary tract symptoms (principal); Z12.5 Encounter for screening for malignant neoplasm of prostate
CPT/HCPCS: 84153

== ENCOUNTER 2022-11-15 14:57 | Outpatient (REF) | payer MEDICARE, SELFPAY ==
[2022-11-15 15:24] LABS: HCT 44.4 % (40.0-50.0); HGB 15.7 g/dL (13.5-17.5); MCH 33.5 pg (27.0-33.0); MCHC 35.4 % (32.0-36.0); MCV 95 fL (80-95); MPV 11.3 fL (8.0-11.0); Platelet Count 152 10^3/uL (130-400); RBC 4.68 10^6/uL (4.36-5.78); RDW-SD 41.2 fL; WBC 4.96 10^3/uL (4.4-10.8)
[2022-11-15 16:03] LABS: Anion Gap 8.9 mmol/L (3-11); BUN 16 mg/dL (7-18); CO2 25.1 mmol/L (21.0-32.0); CREATININE 0.9 mg/dL (0.70-1.30); Chloride 105 mmol/L (98-107); Estimated GFR 84.74 (mL/min/1.73m2); Glucose 114 mg/dL (74-106); Potassium 3.7 mmol/L (3.5-5.1); Sodium 139 mmol/L (136-145)
[2022-11-15 18:26] LABS: Uric Acid 5.2 mg/dL (3.5-7.2)
== END 2022-11-15 14:58 | disposition home or self-care (01) ==
LOC: NCHCN 14:57
PROVIDERS: PCP Internal Medicine; Visit Provider Internal Medicine
DX: M35.3 Polymyalgia rheumatica (principal); N40.0 Benign prostatic hyperplasia without lower urinary tract symptoms; M10.9 Gout, unspecified; K21.9 Gastro-esophageal reflux disease without esophagitis; I47.20 Ventricular tachycardia, unspecified
CPT/HCPCS: 80048; 85027; 84550

== ENCOUNTER 2023-09-19 08:39 | Emergency (ER) | payer MEDICARE, SELFPAY ==
[2023-09-19] VITALS (29 sets, daily range): BP systolic 168–216; BP diastolic 75–98; PULSE 51–70; RESP 11–25; TEMP 36.6; O2SAT 92–99
--- NOTE | 2023-09-19 08:30 | RT.EKG_ITS ---
APPROVED REPORT Exam: Resting ECG Reason for Exam: chest pressure Patient Location: E HR:56 bpm ECG Measurements Heart Rate 56 AXIS NE 205 P 55 QRSd 101 QRS -34 QT 435 T 81 QTc 422 Conclusion Sinus bradycardia...rate< 60 LVH with secondary repolarization abnormality...multi-LVH criteria, abnrm ST-T Anterior infarct, old...Q >40mS, abnormal ST-T, V2-V5
--- NOTE | 2023-09-19 09:10 | ED.GENADUL_ITS ---
HPI General Date/Time Provider Initiated Documentation: 09/19/23 08:46 . HPI Narrative: This 82-year-old male presents with past medical history of palpitations, hypertension, hyperlipidemia, polymyalgia rheumatica on chronic prednisone presents with report of chest pain which started about 3 AM. States that it woke him from sleep he took a couple Tums and the pain improved. He states he woke again in the morning and has had waxing and waning discomfort which she describes as burning in his chest since that time. States it lasts 10 to 15 minutes, it is not exertional in fact he went for a walk yesterday and was walking up a hill and aside from feeling normal shortness of breath with exert ion, he had no chest discomfort or any symptoms similar to what he is experiencing today. He denies any nausea, vomiting, diaphoresis. He denies persistent symptoms such as this in the past with GERD which is why he presents. Denies any calf pain or swelling, recent flights, surgeries, long drives. Denies known history of abdominal or thoracic aortic aneurysm. Denies known exacerbating factors but pain has been present predominantly when patient spends supine. When he was walking into the emergency room the pain resolved and has not represented. Denies tobacco use or illicit drug use. Related Data Home Medications Medication Instructions Recorded Confirmed Aspir-81 81 mg tablet,delayed 81 mg PO DAILY 10/05/13 09/19/23 release (aspirin) carvedilol 3.125 mg tablet 3.125 mg PO BID 02/16/20 09/19/23 pravastatin 40 mg tablet 40 mg PO DAILY 02/16/20 09/19/23 calcium carbonate 600 mg calcium 1,200 mg PO DAILY 03/10/20 09/19/23 (1,500 mg) tablet (Calcium) losartan 25 mg tablet 25 mg PO DAILY 12/19/20 09/19/23 allopurinol 100 mg tablet 100 mg PO BID 10/23/21 09/19/23 omega 5-bub-qum-fish oil 300 1 cap PO DAILY 12/29/21 09/19/23 mg-1,000 mg capsule prednisone 5 mg tablet 7.5 mg PO DAILY 02/14/22 09/19/23 oxybutynin chloride 5 mg 5 mg PO DAILY 05/10/22 09/19/23 tablet,extended release 24 hr doxycycline hyclate 100 mg tablet 100 mg PO BID 10 days #20 tabs 09/19/23 Previous Rx's Medication Instructions Recorded doxycycline hyclate 100 mg tablet 100 mg PO BID 10 days #20 tabs 09/19/23 Allergies Allergy/AdvReac Type Severity Reaction Status Date / Time Penicillins Allergy Intermediate hives Verified 09/19/23 09:08 sulfamethoxazole Allergy Verified 09/19/23 09:08 [From ] trimethoprim [From ] Allergy Verified 09/19/23 09:08 General Stated Complaint: Chest Pain LIANNE: 3 Course Vital Signs Vital signs: Vital Signs Temperature 36.6 C 09/19/23 08:42 Pulse 62 09/19/23 08:42 Respiratory Rate 18 09/19/23 08:42 Blood Pressure 214/98 H 09/19/23 08:42 Pulse Oximetry 96 09/19/23 08:42 Temperature 36.6 C 09/19/23 08:42 Temperature Source Oral 09/19/23 08:42 Pulse 62 09/19/23 08:42 Respiratory Rate 20 09/19/23 08:47 Respiratory Effort Normal, Non-Labored 09/19/23 08:47 Respiratory Depth Normal 09/19/23 08:47 Respiratory Pattern Normal 09/19/23 08:47 Blood Pressure 214/98 H 09/19/23 08:42 Blood Pressure Position Sitting 09/19/23 08:42 Pulse Oximetry 96 09/19/23 08:42 Oxygen Delivery Method Room Air 09/19/23 08:42 Oxygen Flow Rate 0 09/19/23 08:42 Pain Level 0 09/19/23 08:47 Medical Decision Making 82-year-old female presenting with chest pain the past 12 hours Appears well, does have cardiac risk factors however EKG without acute ischemia and 2 negative troponin test, CTA was ordered for further evaluation patient's chest, no evidence of obvious dissection, right lower lobe infiltrate, will treat with doxycycline for pneumonia, heart score indicates admission versus discharge based on placement presentation, patient is not hypoxic, he is ambulatory and overall well in appearance, lower suspicion for cardiac etiology of patient's complaints given workup in the emergency department Will need close outpatient follow-up with primary care physician Asymptomatic throughout encounter here Vitals remained stable aside from mild hypertension, patient is encouraged to continue on his routine meds and follow-up with his primary care physician tomorrow for reassessment Lungs are clear to auscultation, no respiratory distress, cardiac rate rhythm regular, alert and oriented x 4, no peripheral edema, distal pulses intact, no abdominal tenderness rebound or guarding No flank tenderness, distal pulses intact all 4 extremities Return precautions reviewed and patient expressed understanding Quality:SDOH Health Related Social Needs: No Data to Display PFSH All Active Problems (Updated 09/19/23 @ 12:03 by WILLIS Clifton) Pneumonia (Acute) Chest pain (Acute) Dysphagia (Acute) History of use of hearing aid in both ears (Acute) Herpes zoster (Acute) Right carpal tunnel syndrome (Acute) PMR (polymyalgia rheumatica) (Acute) Syncope (Chronic) Lumbar radiculitis (Acute) Maxilla pain (Acute) Ear fullness (Acute) Sensorineural hearing loss, bilateral (Acute) Chest pressure (Acute) Spondylolysis, 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 (Acute) Trochanteric bursitis, left hip (Acute) Personal history of colonic polyps (Acute) Medical History Hearing loss History of neck pain Carpal tunnel syndrome Pain in left shoulder Sensory hearing loss, bilateral (07/20/13) Adenomatous colon polyp (01/11/17) sessile serrated, cecum Hyperlipidemia Osteoarthritis DJD (degenerative joint disease) of knee Lactose intolerance DDD (degenerative disc disease), lumbar Trigger finger Dupuytren's contracture Chronic neck pain Intermittent palpitations Skin lesion of face Nonsustained ventricular tachycardia Bunion, left foot Acute gouty arthropathy Hammer toe Gout Herpetic dermatitis Spondylolisthesis Allergic rhinitis Herpes Acid reflux Melanoma in situ face Sessile colonic polyp (~2017) History of adenomatous polyp of colon serrated features per PCP referral note Pruritic rash BPH (benign prostatic hyperplasia) Left hip pain Hypertension Surgical History History of tonsillectomy and adenoidectomy History of knee replacement procedure of right knee Repair of umbilical hernia Colonoscopy - IV Sedation (01/11/17) Bilateral inguinal hernias Social History Smoking/Tobacco Use Status: Former Tobacco Use Quit Date: 08/26/69 Smoking risk assessment performed?: Yes Alcohol Intake: current Alcohol Intake frequency: 0-2 drinks per day Alcohol type: wine Drug use: Never Substance use type: does not use Current gender identity: male Do you feel safe at home: Yes Do you feel safe in your relationship?: Yes PAWSS Have you Been Recently Intoxicated or Drunk Within the Last 30 days?: No Have you Ever Experienced Previous Episodes of Alcohol Withdrawal?: No Have you ever Experienced Withdrawal Seizures?: No Have you ever Experienced Delirium Tremens(DT)s?: No Have you ever undergone Alcohol Rehabilitation Treatment (i.e, inpt ot outpatient treatment programs)?: No Have you ever Experienced Blackouts?: No Have you ever Combined Alcohol with other Downers within the last 90 days?: No Have you ever Combined Alcohol with any other Substance of Abuse during the last 90 days?: No Positive Blood Alcohol level on Presentation? [PCS.BAL]: No Evidence of Increased Autonomic Activity (i.e. HR>120, tremor, sweating, agitation, nausea)?: No Result: 0 Discharge Plan Disposition Patient Disposition: Home Discharge Details Clinical Impression: Dysphagia, Chest pain, Pneumonia Primary Care Provider: Benjamin Heller ED Provider: Yulissa Bay Home Meds and New Rx's Prescriptions: New doxycycline hyclate 100 mg tablet 100 mg PO BID 10 Days Qty: 20 0RF Continued oxybutynin chloride 5 mg tablet extended release 24hr 5 mg PO DAILY losartan 25 mg tablet 25 mg PO DAILY allopurinol 100 mg tablet 100 mg PO BID prednisone 5 mg tablet 7.5 mg PO DAILY Rx Instructions: take 3 tabs daily for 7 days, then taper to 10 mg for 2 days, and 5 mg for 3 days and discontinue aspirin [Aspir-81] 81 MG tablet,delayed release (DR/EC) 81 mg PO DAILY carvedilol 3.125 mg tablet 3.125 mg PO BID Rx Instructions: must administer with a meal/food pravastatin 40 mg tablet 40 mg PO DAILY omega 1-bcy-uzu-fish oil 300-1,000 mg capsule 1 cap PO DAILY calcium carbonate [Calcium 600] 600 mg calcium (1,500 mg) Tablet 1,200 mg PO DAILY Patient Comments: pt. states he now take famotidine Discharge Instructions Instructions: Chest Pain (ED), Pneumonia (ED) Additional Instructions: Take antibiotic as prescribed Yogurt daily or acidophilus pills daily while on antibiotic Talk to your doctor about your difficulty swallowing, make sure with meat you have small bites and chew well, you may need to have a swallow study or another endoscopy to further evaluate your swallowing Recommend starting on some Pepcid daily to see if it helps your symptoms or Maalox Return earlier should you have new or worsening complaints; chest pain, shortness of breath, etc.. Referrals: Benjamin Heller MD [Primary Care Provider] - 2 days Discharge Data Discharge Date/Time-TO BE ENTERED AT DEPARTURE: 09/19/23 12:13
[2023-09-19] MEDS: Famotidine 20 MG/2 ML VIAL IVP (09:16)
[2023-09-19] MEDS: Pantoprazole 40 MG VIAL IVP (09:16)
[2023-09-19 09:18] LABS: Abs Immature Grans 0.02 10^3/uL (0.0-0.06); Absolute Basophil Count 0.05 10^3/uL (0.0-0.2); Absolute Eosinophil Count 0.14 10^3/uL (0.0-0.7); Absolute Lymphocyte Count 1.26 10^3/uL (1.2-3.4); Absolute Monocyte Count 0.46 10^3/uL (0.1-0.8); Absolute Neutrophil Count 2.36 10^3/uL (1.2-6.7); Basophils % 1.2; Eosinophils % 3.3; HCT 44.4 % (40.0-50.0); HGB 15.7 g/dL (13.5-17.5); Immature Grans % 0.5; Lymphocytes % 29.4; MCHC 35.4 % (32.0-36.0); MCV 96 fL (80-95); MPV 10.6 fL (8.0-11.0); Monocytes % 10.7; Neutrophils % 54.9; Platelet Count 142 10^3/uL (130-400); RBC 4.62 10^6/uL (4.36-5.78); RDW 12.1 % (11.8-14.1); RDW-SD 41.7 fL; WBC 4.29 10^3/uL (4.4-10.8)
[2023-09-19] MEDS: Carvedilol 3.125 MG TAB PO (09:21)
[2023-09-19 09:35] LABS: ALT 26 U/L (16-63); AST 19 U/L (15-37); Albumin 3.9 g/dL (3.4-5.0); Alkaline Phosphatase 70 U/L (46-116); Anion Gap 8.1 mmol/L (3-11); BUN 17 mg/dL (7-18); CO2 27.9 mmol/L (21.0-32.0); CREATININE 1.1 mg/dL (0.70-1.30); Calcium 9.5 mg/dL (8.5-10.1); Chloride 105 mmol/L (98-107); Estimated GFR 66.61 (mL/min/1.73m2); Glucose 116 mg/dL (74-106); Lipase 49 U/L (16-77); Potassium 3.8 mmol/L (3.5-5.1); Sodium 141 mmol/L (136-145); Total Protein 7.1 g/dL (6.4-8.2); Troponin I < 50 ng/L (< or =60)
[2023-09-19] MEDS: Normal Saline - Diluent 50 ML VIAL IJ (09:35)
[2023-09-19] MEDS: Omnipaque 350 MG/ML 500 ML BTL-Imaging package 100 ML IJ (09:38)
--- NOTE | 2023-09-19 09:50 | DI.CT_ITS ---
Exam(s) CT CHEST PE CTA EXAM: CT CHEST PE CTA CLINICAL HISTORY: chest pain, recurrent, radiation to back. TECHNIQUE: Imaging Protocol: Axial CT angiography was performed with multi-slice acquisition and mu lti-planar and/or 3D reconstructions. CONTRAST MATERIAL: Intravenous: Omnipaque 350 contrast volume:100 mL COMPARISON: CT ABD PELVIS WITH CONTRAST from 04/03/[address] BRAIN NECK CTA from 12/15/2021 FINDINGS: Tracheobronchial tree: Patent where visualized. Pulmonary parenchyma: There is an infiltrate in the right lower lobe. Atelectatic changes are seen i n the dependent portions of the lungs. No architectural distortion. Pulmonary Arteries: No evidence of filling defect to suggest pulmonary emboli. Mediastinum and Lyric: No dominant adenopathy or fluid collection. The esophagus is unremarkable. Visualized thyroid gland: Unremarkable. Pleura: No effusion or pneumothorax. Heart: The heart is not dilated. Coronary artery calcifications are present. No pericardial effusion . Aorta: Due to the timing of the bolus, the abdominal aorta is not well opacified. No aneurysm is see n. There is atherosclerosis present. Upper abdomen: There is a stable cyst in the left lobe of the liver. No follow-up is recommended. Soft tissues: Unremarkable. Bones: Within normal limits for the patient's age. IMPRESSION: 1. No evidence of a pulmonary embolism or thoracic aortic aneurysm. 2. Due to the timing of the bolus coordinated for maximum pulmonary artery opacification, the abdomin al aorta is not well opacified. 3. Right lower lobe infiltrate. RADIATION DOSE DELIVERED: 356.42mGy.cm Total DLP DATA REPOSITORY: All CT scans at this facility are submitted to the National Radiology Data Registry (NRDR) Dose Index Registry (DIR) with the [employer] (A[employer]). RADIATION OPTIMIZATION: All CT scans at this facility use at least one of these dose optimization te chniques: automated exposure control; mA and/or kV adjustment per patient size (includes targeted exa ms where dose is matched to clinical indication); or iterative reconstruction.
[2023-09-19 11:24] LABS: Troponin I < 50 ng/L (< or =60)
[2023-09-19] MEDS: Doxycycline Hyclate 100 MG CAP PO (12:01)
== END 2023-09-19 12:13 | disposition home or self-care (01) ==
PROVIDERS: Emergency Provider Physician Assistant; PCP Family Medicine
DX: R13.10 Dysphagia, unspecified (principal); R07.9 Chest pain, unspecified; J18.9 Pneumonia, unspecified organism; I10 Essential (primary) hypertension; E78.5 Hyperlipidemia, unspecified; R00.0 Tachycardia, unspecified; M35.3 Polymyalgia rheumatica; Z79.82 Long term (current) use of aspirin; Z79.52 Long term (current) use of systemic steroids; Z87.891 Personal history of nicotine dependence
CPT/HCPCS: 36415; 71275; 80053; 83690; 87426; 93005; 96374; 96375; 99285; 84484; 85025; 93010; 99284; J2470

== ENCOUNTER 2023-11-04 16:09 | Outpatient (REF) | payer MEDICARE, SELFPAY ==
[2023-11-04 18:12] LABS: D-Dimer 752 ng/mlFEU (<500)
== END 2023-11-04 16:10 | disposition home or self-care (01) ==
LOC: NCHCN 16:09
PROVIDERS: PCP Family Medicine; Visit Provider Family Medicine
DX: M79.662 Pain in left lower leg (principal)
CPT/HCPCS: 85379

== ENCOUNTER 2023-11-12 10:17 | Outpatient (REF) | payer MEDICARE, SELFPAY ==
[2023-11-12 15:09] LABS: Abs Immature Grans 0.02 10^3/uL (0.0-0.06); Absolute Basophil Count 0.05 10^3/uL (0.0-0.2); Absolute Eosinophil Count 0.15 10^3/uL (0.0-0.7); Absolute Monocyte Count 0.56 10^3/uL (0.1-0.8); Absolute Neutrophil Count 2.34 10^3/uL (1.2-6.7); Basophils % 1.1; Eosinophils % 3.2; HCT 43.6 % (40.0-50.0); HGB 15.6 g/dL (13.5-17.5); Immature Grans % 0.4; Lymphocytes % 32.5; MCH 34.7 pg (27.0-33.0); MCHC 35.8 % (32.0-36.0); MCV 97 fL (80-95); MPV 11.5 fL (8.0-11.0); Monocytes % 12.1; Neutrophils % 50.7; Platelet Count 156 10^3/uL (130-400); RBC 4.49 10^6/uL (4.36-5.78); RDW 12.1 % (11.8-14.1); RDW-SD 43.3 fL; WBC 4.62 10^3/uL (4.4-10.8)
[2023-11-12 15:56] LABS: ALT 25 U/L (16-63); AST 20 U/L (15-37); Albumin 3.9 g/dL (3.4-5.0); Alkaline Phosphatase 74 U/L (46-116); Anion Gap 10.1 mmol/L (3-11); BUN 15 mg/dL (7-18); Bilirubin, Total 0.8 mg/dL (0.2-1.0); CO2 26.9 mmol/L (21.0-32.0); CREATININE 0.9 mg/dL (0.70-1.30); Calcium 8.5 mg/dL (8.5-10.1); Chloride 106 mmol/L (98-107); Estimated GFR 84.22 (mL/min/1.73m2); Glucose 98 mg/dL (74-106); Sodium 143 mmol/L (136-145); Total Protein 6.8 g/dL (6.4-8.2); Uric Acid 5.1 mg/dL (3.5-7.2)
[2023-11-12 16:13] LABS: Calculated LDL 96 mg/dL (<100); Cholesterol 172 mg/dL (<200); HDL Cholesterol 45 mg/dL (40-60); Triglyceride 155 mg/dL (<150)
== END 2023-11-12 10:18 | disposition home or self-care (01) ==
LOC: NCHCN 10:17
PROVIDERS: PCP Family Medicine; Visit Provider Family Medicine
DX: I10 Essential (primary) hypertension (principal)
CPT/HCPCS: 80053; 80061; 84550; 85025

== ENCOUNTER 2024-01-30 10:00 | Outpatient (CLI) | payer MEDICARE, SELFPAY ==
[2024-01-30 10:04] VITALS: BP 143/80; PULSE 61; RESP 20; TEMP 36.6; O2SAT 94
--- NOTE | 2024-01-30 10:42 | DI.RAD_ITS ---
Exam(s) XR PAIN CLINIC LUMBAR SP 2V EXAM: XR PAIN CLINIC LUMBAR SP 2V CLINICAL HISTORY: DX: Lumbar Radiculopathy TECHNIQUE: 2D and realtime digital imaging was performed. Radiologist not present. CONTRAST MATERIAL: None. COMPARISON: No exams were available for comparison FINDINGS: Fluoroscopy was provided for pain management therapy. Please refer to procedure report or details. Radiation Exposure Index: Ka,r=22.38 mGy IMPRESSION: As above. RADIATION DOSE DELIVERED:
[2024-01-30] MEDS: Dexamethasone Sod. Phos./Pres-Free 10 MG/ML VIAL IJ (10:44)
[2024-01-30] MEDS: Omnipaque 240 MG/ML 50 ML BTL IJ (10:44)
[2024-01-30] MEDS: Nerve Block Tray 1 EACH MC (10:44)
[2024-01-30 10:45] VITALS: BP 139/98; PULSE 60; RESP 14; O2SAT 94
--- NOTE | 2024-01-30 11:45 | PDOC.PAIN ---
Date of service: 01/30/24 Time of Service: 11:45 Pain Managment Procedure Note Procedure Note Procedure Note: PROCEDURE NOTE LEFT L5 TRANSFORAMINAL EPIDURAL STEROID INJECTION Chief Complaint: LEFT leg pain. Date of Service: January 30, 2024 Patient: Tae Kahn Provider: Aldo Mcintyre DO, MPH Tae Kahn has been referred to the [facility] for a transforaminal epidural steroid injection. Pre-operative diagnosis: Lumbosacral Radiculopathy Post-operative diagnosis: Same Pre-Procedure Pain: VAS= 8/10 Comments: I previously evaluated the patient in our clinic and their symptoms remain the same as they were at that time. He had this procedure on 02/15/22 and had >18 months of pain relief. Tae was interviewed and the medical record reviewed. There were no medical, pharmacologic, radiographic or other structural contraindications to attempting a fluoroscopically-guided transforaminal lumbar epidural steroid injection. The risks, benefits, and potential side effects were reviewed with the patient. Risks include, but are not limited to, [id number] headache, infection, bleeding, nerve injury, spinal cord damage, allergic reaction, possible increase in symptoms over the ensuing 24 to 48 hours, paralysis, and . The patient appeared to understand, questions were answered to the patient?s satisfaction and the patient agreed to proceed. Once I obtained informed verbal consent, the printed consent form was signed by the patient and myself. A standard time-out procedure was performed. Tae was placed in the prone position on the fluoroscopy table and automated blood pressure cuff, three lead EKG, and pulse oximeter were applied. The skin entry point for entering/approaching the left L5 space for the transforaminal epidural steroid injection was marked. Following thorough chlorhexadine preparation of the skin and draping, 2 ml of 1% lidocaine was infiltrated into the skin over the entry point and subcutaneous tissues. Under fluoroscopic guidance, in ipsilateral oblique view, a co-axial approach using a 3.5 22G spinal needle was advanced to the base of the L5 pedicle. The needle was advanced to the superio-posterior aspect of the neural foramen under lateral view. Oblique and AP views were rechecked. Under AP and lateral views, 1 ml of Omnipaque-240 was injected while visualized with fluoroscopy. There was no evidence of intravascular or intrathecal uptake, the epidural space was delineated. Next 1.5 ml of preservative-free Dexamethasone (10 mg/ml) was injected after negative aspiration. This was followed by 1 ml of preservative-free 1% lidocaine. (49 mls of Omnipaque-240 was wasted) There was no unusual discomfort expressed by Tae. The needle was withdrawn without difficulty. Tae was observed and was without hemodynamic, neurologic, or allergic reactions.? Fluoroscopic images were digitally archived. Tae's vital signs were stable throughout the procedure and were as recorded in the docflowsheet by the nursing staff.? If given, dosages of intravenous drugs for anxiolysis and analgesia were documented in MAR. Follow up plans and appointments were discussed with Tae. Post procedure instruction was given as documented in nursing records and having met discharge criteria Tae was discharged from the [facility]. COMMENTS: Post-procedure pain: VAS= 0/10. Tae to contact [facility] as needed. If at least 50% improvement in pain and/or function for at least 3 months is achieved, this procedure can be repeated. I personally performed this entire procedure. ALDO MCINTYRE DO, MPH [facility]-subspecialty board certification in Pain Medicine [facility]-Center for Pain Management
== END 2024-01-30 10:01 | disposition home or self-care (01) ==
LOC: PC 10:00
PROVIDERS: PCP Family Medicine; Visit Provider Preventive Medicine Occupational Medicine
DX: M54.50 Low back pain, unspecified (principal); M54.17 Radiculopathy, lumbosacral region
CPT/HCPCS: 64483; 72100; J1100; Q9967

== ENCOUNTER 2024-04-14 22:49 | Emergency (ER) | payer MEDICARE, SELFPAY ==
--- NOTE | 2024-04-14 00:31 | DI.CT_ITS ---
Exam(s) CT ABDOMEN PELVIS W EXAM: CT ABDOMEN PELVIS W CLINICAL HISTORY: LLQ pain, eval for diverticulitis. TECHNIQUE: Imaging Protocol: Axial computed tomography images with coronal and sagittal reformatted images were created and reviewed CONTRAST MATERIAL: Intravenous: Omnipaque 350 Contrast volume:100 ml Oral: no COMPARISON: CT ABD PELVIS WITH CONTRAST from 04/03/[address] CHEST PE CTA from 09/19/2023 FINDINGS: ABDOMEN and PELVIS: Lung Bases: Mild atelectasis and dependent changes. Small hiatal hernia. Liver: Normal density. Stable simple liver cyst. No suspicious mass. Gallbladder and biliary tract: No radiodense calculus. No biliary dilation. Pancreas: Normal density. No abnormal calcifications or inflammatory process. No evidence of mass. Spleen: Normal. Kidneys: Normal size, contour and axis. Moderate left hydronephrosis secondary to a 4 millimeter sto ne in the distal left ureter, 4 cm above the ureterovesical junction. Perinephric stranding. No jose picious masses seen. Adrenal glands: No masses seen. Vasculature: Abdominal aorta non-dilated. Atherosclerotic changes. Soft tissues: Fat containing bilateral inguinal hernias. Bladder: No gross wall thickening. No calculi. Question of a 10 millimeter mass versus administered IV contrast in the posterior right side of the bladder near the ureteral vesicle junction. Bowel: No obstruction. No bowel wall thickening. Appendix is not seen. Sigmoid diverticulosis. In creased stool in ascending and transverse colon. Peritoneal cavity: No ascites. No focal collection. No mesenteric inflammatory response. Bones: Unremarkable for age. Reproductive organs: Enlarged prostate. Lymph nodes: No pathologically enlarged lymph nodes. IMPRESSION:: Moderate left hydronephrosis secondary to a 4 millimeter stone above the UVJ. Question of a 10 millimeter mass at the right posterior bladder near the UVJ versus a small amount of administered contrast. Cystoscopy or CT urogram recommended for further evaluation. Unexpected findings RADIATION DOSE DELIVERED: Total DLP DATA REPOSITORY: All CT scans at this facility are submitted to the National Radiology Data Registry (NRDR) Dose Index Registry (DIR) with the [employer] (ACR). RADIATION OPTIMIZATION: All CT scans at this facility use at least one of these dose optimization te chniques: automated exposure control; mA and/or kV adjustment per patient size (includes targeted exa ms where dose is matched to clinical indication); or iterative reconstruction.
[2024-04-14 22:51] VITALS: BP 199/107; PULSE 63; RESP 18; TEMP 36.5; O2SAT 96
[2024-04-14 23:24] LABS: Abs Immature Grans 0.03 10^3/uL (0.0-0.06); Absolute Basophil Count 0.05 10^3/uL (0.0-0.2); Absolute Eosinophil Count 0.13 10^3/uL (0.0-0.7); Absolute Lymphocyte Count 1.15 10^3/uL (1.2-3.4); Absolute Monocyte Count 0.66 10^3/uL (0.1-0.8); Absolute Neutrophil Count 5.36 10^3/uL (1.2-6.7); Basophils % 0.7 %; Eosinophils % 1.8 %; HCT 45.9 % (40.0-50.0); HGB 15.9 g/dL (13.5-17.5); Immature Grans % 0.4 %; Lymphocytes % 15.6 %; MCH 34.1 pg (27.0-33.0); MCHC 34.6 % (32.0-36.0); MCV 99 fL (80-95); MPV 10.4 fL (8.0-11.0); Monocytes % 8.9 %; Neutrophils % 72.6 %; Platelet Count 146 10^3/uL (130-400); RBC 4.66 10^6/uL (4.36-5.78); RDW 12.1 % (11.8-14.1); RDW-SD 43.6 fL; WBC 7.38 10^3/uL (4.4-10.8)
[2024-04-14] MEDS: ACETAMINOPHEN 1,000 MG/100 ML BTL 400 MG IVPB (23:24)
[2024-04-14] MEDS: Normal Saline 500 ML IV (23:25)
--- NOTE | 2024-04-14 23:29 | ED.GENADUL_ITS ---
Discharge Plan Disposition Patient Disposition: Home Condition: Good Discharge Details Clinical Impression: Kidney stone on left side Primary Care Provider: Benjamin Heller ED Provider: Ang Caruso Home Meds and New Rx's Prescriptions: No Action oxybutynin chloride 5 mg tablet extended release 24hr 5 mg PO DAILY losartan 25 mg tablet 25 mg PO DAILY allopurinol 100 mg tablet 100 mg PO BID aspirin [Aspir-81] 81 MG tablet,delayed release (DR/EC) 81 mg PO DAILY carvedilol 3.125 mg tablet 3.125 mg PO BID Rx Instructions: must administer with a meal/food pravastatin 40 mg tablet 40 mg PO DAILY omega 8-xvx-dwk-fish oil 300-1,000 mg capsule 1 cap PO DAILY calcium carbonate [Calcium 600] 600 mg calcium (1,500 mg) Tablet 1,200 mg PO DAILY Patient Comments: pt. states he now take famotidine tamsulosin 0.4 mg capsule 0.4 mg PO DAILY imiquimod 5 % cream in packet 1 applic TOPICAL ONCE Patient Comments: APPLY A THIN LAYER TOPICALLY ONCE DAILY IN THE EVENING ON MONDAYS, WEDNESDAYS, AND FRIDAYS ONLY FOR 8 WEEKS THEN DISCONTINUE Discharge Instructions Instructions: Kidney Stone Diet, Kidney Stone, Adult ED Additional Instructions: At this time you have evidence of a small 3.5 mm kidney stone in your left ureter. It is almost out, but still has a little ways to go. Please take your Flomax as prescribed. Drink plenty of water and stay well-hydrated. Make sure your water has been supplemented with lemon juice to help dissolve the stone. Please take 500 mg 2000 mg of Tylenol every 6-8 hours as needed for pain. Please strain your urine to collect the stone for further analysis. If you notice any worsening of your symptoms, or any new symptoms such as vomiting, diarrhea, fever, chills, shortness of breath, chest pain, numbness, weakness, or fainting , please return immediately to the emergency department for reevaluation. Please follow up with your primary care provider as soon as possible for reassessment and reevaluation. As always, it was a pleasure participating in your medical care today. Referrals: Benjamin Heller MD [Primary Care Provider] - Dejuan Charles MD [ [facility] STAFF PHYSICIAN] - [facility] General Date/Time Provider Initiated Documentation: 04/14/24 22:59 . HPI Narrative: 83-year-old male with past medical history of diverticulitis, gout, BPH, tonsillectomy, knee replacement on the right, previous hernia repair, presents today for evaluation of left-sided abdominal pain. Patient states that he was eating dinner and developed sudden onset sharp stabbing left lower quadrant pain, the pain improved over the next few hours but although it improved its presence persisted. He denies vomiting or diarrhea. He does admit to constipation recently. He denies any blood in his stool. No other complaints at this time. Related Data Home Medications ?Medication ?Instructions ?Recorded ?Confirmed Aspir-81 81 mg tablet,delayed 81 mg PO DAILY 10/05/13 04/14/24 release (aspirin) carvedilol 3.125 mg tablet 3.125 mg PO BID 02/16/20 04/14/24 pravastatin 40 mg tablet 40 mg PO DAILY 02/16/20 04/14/24 calcium carbonate (Calcium 600) 1,200 mg PO DAILY 03/10/20 04/14/24 losartan 25 mg tablet 25 mg PO DAILY 12/19/20 04/14/24 allopurinol 100 mg tablet 100 mg PO BID 10/23/21 04/14/24 omega 2-nkt-xsz-fish oil 300 1 cap PO DAILY 12/29/21 04/14/24 mg-1,000 mg capsule oxybutynin chloride 5 mg 5 mg PO DAILY 05/10/22 04/14/24 tablet,extended release 24 hr imiquimod 5 % topical cream packet 1 applic topical ONCE 04/14/24 04/14/24 tamsulosin 0.4 mg capsule 0.4 mg PO DAILY 04/14/24 04/14/24 Allergies Allergy/AdvReac Type Severity Reaction Status Date / Time Penicillins Allergy Intermediate hives Verified 04/14/24 22:56 sulfamethoxazole (From Allergy unknown Verified 04/14/24 22:56 Sept) trimethoprim (From ) Allergy unknown Verified 04/14/24 22:56 General Stated Complaint: Abd Prob LIANNE: 3 Review of Systems All systems reviewed & are unremarkable except as noted in HPI and below Exam Narrative Exam Narrative: 1.Const: Well-nourished, Well-developed, appearing stated age 2.Eyes: PERRL, no conjunctival injection, and symmetrical lids. 3.ENT: Atraumatic external nose and ears. Moist MM. Neck: Symmetric, trachea midline, No thyromegaly. 4.CVS: +S1/S2, No murmurs or gallops. Peripheral pulses 2+ and equal in all extremities. Brisk capillary refill in all extremities. 5.RESP: Unlabored respiratory effort. Clear to auscultation bilaterally. No wheezes rales or rhonchi 6.GI: Soft, nondistended, no guarding or rebound, mild left lower quadrant tenderness. No pain at McBurney's point, negative Rocha sign. 7.MSK: Normocephalic/Atraumatic, Extremities w/o deformity or ttp No cyanosis or clubbing, Normal movement of all extremities 8.Skin: Warm, Dry. No rashes or lesions. 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 Sensation grossly intact, no focal neur ologic deficits. 10.Psych: (AAO) x3. Appropriate mood and affect Course Vital Signs Vital signs: Vital Signs Temperature 36.5 C 04/14/24 22:51 Pulse 63 04/14/24 22:51 Respiratory Rate 18 04/14/24 22:51 Blood Pressure 199/107 H 04/14/24 22:51 Pulse Oximetry 96 04/14/24 22:51 Temperature 36.5 C 04/14/24 22:51 Temperature Source Skin 04/14/24 22:51 Pulse 63 04/14/24 22:51 Respiratory Rate 18 04/14/24 22:51 Respiratory Effort Normal 04/14/24 22:55 Blood Pressure 199/107 H 04/14/24 22:51 Blood Pressure Position Sitting 04/14/24 22:51 Pulse Oximetry 96 04/14/24 22:51 Oxygen Delivery Method Room Air 04/14/24 22:51 Oxygen Flow Rate 0 04/14/24 22:51 Lab/Test Results Lab/Test Results: Laboratory Tests Range/Units 04/14/24 23:16 WBC (4.4-10.8) 10^3/uL 7.38 RBC (4.36-5.78) 10^6/uL 4.66 Hgb (13.5-17.5) g/dL 15.9 Hct (40.0-50.0) % 45.9 MCV (80-95) fL 99 H MCH (27.0-33.0) pg 34.1 H MCHC (32.0-36.0) % 34.6 RDW (11.8-14.1) % 12.1 Plt Count (130-400) 10^3/uL 146 MPV (8.0-11.0) fL 10.4 Immature Gran % % 0.4 Neutrophils % % 72.6 Lymphocytes % % 15.6 Monocytes % % 8.9 Eosinophils % % 1.8 Basophils % % 0.7 Nucleated RBC % (0.0-0.3) % 0.0 Absolute Neutrophils (1.2-6.7) 10^3/uL 5.36 Absolute Lymphocytes (1.2-3.4) 10^3/uL 1.15 L Absolute Monocytes (0.1-0.8) 10^3/uL 0.66 Absolute Eosinophils (0.0-0.7) 10^3/uL 0.13 Absolute Basophils (0.0-0.2) 10^3/uL 0.05 Medical Decision Making 83-year-old male with past medical history of diverticulitis, gout, BPH, tonsillectomy, knee replacement on the right, previous hernia repair, presents today for evaluation of left-sided abdominal pain. Patient states that he was eating dinner and developed sudden onset sharp stabbing left lower quadrant pain, the pain improved over the next few hours but although it improved its presence persisted. He denies vomiting or diarrhea. He does admit to constipation recently. He denies any blood in his stool. No other complaints at this time. Exam demonstrates well-appearing male, mild left lower quadrant tenderness. No guarding or rebound. Symptoms are concerning for diverticulitis, constipation, less likely appendicitis. Will get a CT scan, treat his pain, monitor closely and reassess. 2:48 AM Laboratory workup has returned, no white count bandemia or left shift. Urinalysis shows evidence of blood but no infection. CT scan shows evidence of acute 3.5 mm kidney stone about 3.5 cm from the proximal ureterovesicular junction. Patient's pain is completely resolved, he feels well. He feels comfortable going home. Patient does have very small amount of scattered patchy groundglass opacities in the bases, however the patient denies any current cough, fever or chills otherwise. Symptoms inconsistent with pneumonia. Patient has been prescribed Flomax outpatient but he has not started this yet. Will recommend that he begins this. Recommend continued hydration at home with lemon juice supplementation. Will give Toradol here, but recommend Tylenol for continued home use. No evidence of renal failure, the patient's kidney function demonstrates a creatinine of 1.1 with a GFR 66, no evidence of UTI, no evidence of uncontrolled pain. Patient is stable for discharge. Will place a referral with urology, give the patient a urinary strainer, recommend continuation of Flomax, and Tylenol outpatient because of his age. No other evidence of acute life-threatening etiology including no evidence of diverticulitis. Patient for stable for discharge. I have extensively reviewed the treatment plan and d ischarge instructions with the patient. I have addressed all patient concerns at this time. The patient was made aware of what symptoms to monitor for that would warrant a return to the emergency department. Discussed the plan with the patient, they demonstrate verbal understanding and agreement with our assessment and plan at this time. The documentation in this chart was dictated using [employer] dictation software. Please excuse any dictation errors. FINDINGS: Lungs: There is heterogeneous attenuation of the pulmonary parenchyma, consistent with air trapping from underlying small airways disease. Moderate centrilobular emphysematous changes are present with blebs present within the left lower lobe of the lung. Scattered patchy ground-glass opacities within the lungs. These findings are nonspecific and may represent hypoventilatory change,edema, hemorrhage, or an infectious/inflammatory process (acute or chronic). There are diffuse interstitial infiltrates present. This may represent cardiogenic versus noncardiogenic edema. An acute inflammatory process and/or infectious process/pneumonia are not excluded. Pleural spaces: There is no evidence of pneumothorax. There are no pleural effusions present. Heart: There is calcification of the cardiac aortic valve annulus. Coronary arteries: There is mild atherosclerotic calcification of the coronary arteries. Diaphragm: A small hiatal hernia is present. Liver: There is a diffuse decrease in hepatic parenchymal density, consistent with moderate fatty infiltration. Low-attenuation lesion left liver lobe measuring 16.5 cm consistent with simple hepatic cysts Pancreas: The pancreas is normal. Spleen: The spleen is normal. Adrenal glands: The adrenal glands are normal. Kidneys and ureters: There is moderate left hydronephrosis. There is moderate left perinephric soft tissue stranding and fluid. There is moderate left ureteric dilation with moderate left periureteric soft tissue stranding. There is an obstructing 3.5 mm calculus present within the distal left ureter approximately 3.5 cm proximal to the ureterovesicular junction. Stomach and bowel: There is moderate increased colonic fecal content. The colon is mildly distended. These findings suggest a moderate degree of constipation. Clinical correlation recommended. Appendix: No evidence of appendicitis. Intraperitoneal space: There is no free intraperitoneal air. There is no other evidence of free intraperitoneal or pelvic fluid. Vasculature: The aorta demonstrates moderate atherosclerotic calcification. The arterial peripheral vasculature demonstrates diffuse moderate atherosclerotic calcification. The inferior venacava appears normal.The portal, mesenteric and splenic veins are patent.There is no evidence of intestinal obstruction. Lymph nodes: There is no evidence of lymphadenopathy. Urinary bladder: The bladder is normal. Reproductive: Prostate is enlarged shows inhomogeneous enhancement and calcification. Neoplasm is not excluded. Bones/joints: The thoracolumbar spine demonstrates moderate degenerative changes at multiple levels.The lumbar spine demonstrates moderate to severe degenerative changes. Grade 1 anterolisthesis of L4 anteriorly on L5. Soft tissues: There are nonobstructing bilateral inguinal hernias containing fat and possibly a small amount of mesentery. IMPRESSION: 1. There is moderate left hydronephrosis. There is moderate left perinephric soft tissue stranding and fluid. There is moderate left ureteric dilation with moderate left periureteric soft tissue stranding. 2. There is an obstructing 3.5 mm calculus present within the distal left ureter approximately 3.5 cm proximal to the ureterovesicular junction. 3. There is heterogeneous attenuation of the pulmonary parenchyma, consistent with air trapping from underlying small airways disease. Moderate centrilobular emphysematous changes are present with blebs present within the left lower lobe of the lung. 4. Scattered patchy ground-glass opacities within the lungs. These findings are nonspecific and may represent hypoventilatory change,edema, hemorrhage, or an infectious/inflammatory process (acute or chronic). 5. There are diffuse interstitial infiltrates present. This may represent cardiogenic versus noncardiogenic edema. An acute inflammatory process and/or infectious process/pneumonia are not excluded. Quality:[facility] Health Related Social Needs: No Data to Display PFSH All Active Problems (Updated 04/15/24 @ 01:50 by Ang Caruso DO) Kidney stone on left side (Acute) History of use of hearing aid in both ears (Acute) Herpes zoster (Acute) Right carpal tunnel syndrome (Acute) PMR (polymyalgia rheumatica) (Acute) Syncope (Chronic) Lumbar radiculitis (Acute) Maxilla pain (Acute) Ear fullness (Acute) Sensorineural hearing loss, bilateral (Acute) Chest pressure (Acute) Spondylolysis, 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 (Acute) Trochanteric bursitis, left hip (Acute) Personal history of colonic polyps (Acute) Medical History Hearing loss History of neck pain Carpal tunnel syndrome Pain in left shoulder Sensory hearing loss, bilateral (07/20/13) Adenomatous colon polyp (01/11/17) sessile serrated, cecum Hyperlipidemia Osteoarthritis DJD (degenerative joint disease) of knee Lactose intolerance DDD (degenerative disc disease), lumbar Trigger finger Dupuytren's contracture Chronic neck pain Intermittent palpitations Skin lesion of face Nonsustained ventricular tachycardia Bunion, left foot Acute gouty arthropathy Hammer toe Gout Herpetic dermatitis Spondylolisthesis Allergic rhinitis Herpes Acid reflux Melanoma in situ face Sessile colonic polyp (~2017) History of adenomatous polyp of colon serrated features per PCP referral note Pruritic rash BPH (benign prostatic hyperplasia) Left hip pain Hypertension Surgical History History of tonsillectomy and adenoidectomy History of knee replacement procedure of right knee Repair of umbilical hernia Colonoscopy - IV Sedation (01/11/17) Bilateral inguinal hernias Social History Smoking/Tobacco Use Status: Former Tobacco Use Quit Date: 08/26/69 Smoking risk assessment performed?: Yes Alcohol Intake: current Alcohol Intake frequency: 0-2 drinks per day Alcohol type: wine Drug use: Never Substance use type: does not use Current gender identity: male Do you feel safe at home: Yes Do you feel safe in your relationship?: Yes
[2024-04-14 23:37] LABS: ALT 21 U/L (16-63); AST 16 U/L (15-37); Alkaline Phosphatase 82 U/L (46-116); Anion Gap 7.2 mmol/L (3-11); BUN 14 mg/dL (7-18); Bilirubin, Total 0.75 mg/dL (0.2-1.0); CO2 26.8 mmol/L (21.0-32.0); CREATININE 1.1 mg/dL (0.70-1.30); Chloride 106 mmol/L (98-107); Estimated GFR 66.19 (mL/min/1.73m2); Glucose 123 mg/dL (74-106); Lipase 52 U/L (16-77); Potassium 4.4 mmol/L (3.5-5.1); Sodium 140 mmol/L (136-145); Total Protein 7.1 g/dL (6.4-8.2)
[2024-04-14 23:43] LABS: Calcium 9.6 mg/dL (8.5-10.1)
[2024-04-15] MEDS: Normal Saline - Diluent 50 ML VIAL IJ (00:21)
[2024-04-15] MEDS: Omnipaque 350 MG/ML 100 ML BTL IJ (00:30)
--- NOTE | 2024-04-15 01:16 | DI.VRAD_ITS ---
PROCEDURE INFORMATION: Exam: CT Abdomen And Pelvis With Contrast Exam date and time: 04/15/2024 12:13 AM Age: 83 years old Clinical indication: Other: Llq pain, eval for diverticulitis TECHNIQUE: Imaging protocol: Computed tomography of the abdomen and pelvis with contrast. Contrast material: OMNIPAQUE 350; Contrast volume: 100 ml; Contrast route: INTRAVENOUS (IV); COMPARISON: CR XR HIP SINGLE W PELVIS 12/31/2019 9:58 AM FINDINGS: Lungs: There is heterogeneous attenuation of the pulmonary parenchyma, consistent with air trapping from underlying small airways disease. Moderate centrilobular emphysematous changes are present with blebs present within the left lower lobe of the lung. Scattered patchy ground-glass opacities within the lungs. These findings are nonspecific and may represent hypoventilatory change,edema, hemorrhage, or an infectious/inflammatory process (acute or chronic). There are diffuse interstitial infiltrates present. This may represent cardiogenic versus noncardiogenic edema. An acute inflammatory process and/or infectious process/pneumonia are not excluded. Pleural spaces: There is no evidence of pneumothorax. There are no pleural effusions present. Heart: There is calcification of the cardiac aortic valve annulus. Coronary arteries: There is mild atherosclerotic calcification of the coronary arteries. Diaphragm: A small hiatal hernia is present. Liver: There is a diffuse decrease in hepatic parenchymal density, consistent with moderate fatty infiltration. Low-attenuation lesion left liver lobe measuring 16.5 cm consistent with simple hepatic cysts. Gallbladder and biliary ducts: The gallbladder is normal. There is no cholelitiasis, wall thickening or pericholecystic fluid to suggest cholecystitis.There is no evidence of intrahepatic or extrahepatic biliary ductal dilation. Pancreas: The pancreas is normal. Spleen: The spleen is normal. Adrenal glands: The adrenal glands are normal. Kidneys and ureters: There is moderate left hydronephrosis. There is moderate left perinephric soft tissue stranding and fluid. There is moderate left ureteric dilation with moderate left periureteric soft tissue stranding. There is an obstructing 3.5 mm calculus present within the distal left ureter approximately 3.5 cm proximal to the ureterovesicular junction. Stomach and bowel: There is moderate increased colonic fecal content. The colon is mildly distended. These findings suggest a moderate degree of constipation. Clinical correlation recommended. Appendix: No evidence of appendicitis. Intraperitoneal space: There is no free intraperitoneal air. There is no other evidence of free intraperitoneal or pelvic fluid. Vasculature: The aorta demonstrates moderate atherosclerotic calcification. The arterial peripheral vasculature demonstrates diffuse moderate atherosclerotic calcification. The inferior venacava appears normal.The portal, mesenteric and splenic veins are patent.There is no evidence of intestinal obstruction. Lymph nodes: There is no evidence of lymphadenopathy. Urinary bladder: The bladder is normal. Reproductive: Prostate is enlarged shows inhomogeneous enhancement and calcification. Neoplasm is not excluded. Bones/joints: The thoracolumbar spine demonstrates moderate degenerative changes at multiple levels.The lumbar spine demonstrates moderate to severe degenerative changes. Grade 1 anterolisthesis of L4 anteriorly on L5. Soft tissues: There are nonobstructing bilateral inguinal hernias containing fat and possibly a small amount of mesentery. IMPRESSION: 1. There is moderate left hydronephrosis. There is moderate left perinephric soft tissue stranding and fluid. There is moderate left ureteric dilation with moderate left periureteric soft tissue stranding. 2. There is an obstructing 3.5 mm calculus present within the distal left ureter approximately 3.5 cm proximal to the ureterovesicular junction. 3. There is heterogeneous attenuation of the pulmonary parenchyma, consistent with air trapping from underlying small airways disease. Moderate centrilobular emphysematous changes are present with blebs present within the left lower lobe of the lung. 4. Scattered patchy ground-glass opacities within the lungs. These findings are nonspecific and may represent hypoventilatory change,edema, hemorrhage, or an infectious/inflammatory process (acute or chronic). 5. There are diffuse interstitial infiltrates present. This may represent cardiogenic versus noncardiogenic edema. An acute inflammatory process and/or infectious process/pneumonia are not excluded. Dictated and Authenticated by: Sid Beck MD. Ordering:MARIUM Fry MD
[2024-04-15 01:23] LABS: Bilirubin Negative (Negative); Blood Large (Negative); Clarity Sl Cloudy (Clear); Glucose Negative (Negative); Ketones Negative (Negative); Leukocyte Esterase Negative (Negative); Nitrite Negative (Negative); Specific Gravity 1.015 (1.005-1.025); Urobilinogen 0.2 mg/dL (Up to 0.2)
[2024-04-15 01:30] LABS: Epithelial Cells Negative HPF (Negative); RBC >50 HPF (0-2); WBC Negative HPF (0-5)
[2024-04-15 01:31] LABS: Bacteria Negative HPF (Negative); C & S Indicated? No; Casts Negative LPF (Negative); Crystals Negative HPF (Negative); Mucus Negative (Negative)
--- NOTE | 2024-04-15 01:41 | NUR.NOTE ---
Referral faxed to [facility] to f/u for kidney stones.Nursing Note:
[2024-04-15] MEDS: Ketorolac 15 MG/ML VIAL IVP (01:58)
[2024-04-15] MEDS: Tamsulosin 0.4 MG CAPCR PO (01:58)
== END 2024-04-15 01:59 | disposition home or self-care (01) ==
PROVIDERS: Emergency Provider Student in an Organized Health Care Education/Training Program; PCP Family Medicine
DX: N20.0 Calculus of kidney (principal)
CPT/HCPCS: 80053; 83690; 96365; 96375; 99285; 74177; 81003; 81015; 85025; 99284; J0131; J1885; J3490

== ENCOUNTER 2024-05-13 12:25 | Outpatient (CLI) | payer MEDICARE, SELFPAY ==
[2024-05-13 12:32] VITALS: BP 134/90; PULSE 63; RESP 20; TEMP 36.6; O2SAT 96
[2024-05-13 12:55] VITALS: O2SAT 94
[2024-05-13 13:00] VITALS: O2SAT 93
[2024-05-13 13:05] VITALS: O2SAT 97
[2024-05-13] MEDS: Omnipaque 240 MG/ML 50 ML BTL IJ (13:07)
[2024-05-13] MEDS: Bupivacaine 0.5% Pres-Free 10 ML VIAL IJ (13:08)
--- NOTE | 2024-05-13 13:08 | DI.RAD_ITS ---
Exam(s) XR PAIN CLINIC LUMBAR SP 2V EXAM: XR PAIN CLINIC LUMBAR SP 2V CLINICAL HISTORY: DX: Lumbar Radiculopathy. TECHNIQUE: Fluoroscopy was provided for the referring physician for guidance with performing pain cl inic injection procedure. COMPARISON: No exams were available for comparison FINDINGS: Please see procedure note for details. Fluoro time: 40.4 seconds RADIATION DOSE DELIVERED: Ka,r=13.5 mGy
--- NOTE | 2024-05-13 13:08 | PDOC.PAIN ---
Date of service: 05/13/24 Time of Service: 13:12 Pain Managment Procedure Note Procedure Note Procedure Note: Lumbar Transforaminal Epidural Steroid Injection ? Location: LEFT L4 ? Pre-procedure Diagnosis: M54.17-Radiculopathy, lumbosacral region M54.16 Radiculopathy, lumbar region ? Post-procedure Diagnosis:? The same as above ? Sedation:? none ? Estimated blood loss:? less than 2 cc ? Surgeon:? Osiel Ignacio MD COMMENT: SEVERVE CENTRAL AND FORAMINAL SPINAL STENOSIS AT L4-5 WITH LEFT RADICULAR PAIN AND GOOD RELIEF FROM PREVIOUS. ? Procedure Detail:?? The procedure and potential risks were explained to the patient and informed written consent was obtained. The patient was escorted to the procedure room and placed in the prone position. Pillows were utilized for proper positioning and comfort. Time out was performed in the procedure room with nursing staff confirming the patient's identity, procedure to be performed, allergies, and any blood thinning or anti-platelet medications. The patient's lower back was prepped with ChloraPrep and draped in a sterile fashion. Sterile gloves were used, a face mask was worn, and new single dose vials of all medications were used with the top being swabbed with alcohol and given time to dry prior to withdrawal of medication. A LEFT-sided oblique fluoroscopic view was obtained, with visualization of L4-5. Lidocaine 1% was used to anesthetize the skin. The tip of a 22-gauge, Quincke needle was advanced toward the 6 o'clock position of the superior pedicle at the target level.? It was advanced just under the pedicle to the neural foramen L4-5. Correct needle placement was confirmed through review of the fluoroscopy. Next, following negative aspiration, 1cc's of Omnipaque 240 contrast was injected under live fluoroscopy which showed good flow throughout the epidural space and no evidence of vascular flow or flow into adjacent compartments. Next, following negative aspiration, 15mg of preservative-free dexamethasone and 0.5ml of 0.5% bupivacaine was injected. The needle was gently removed.? ? The patient tolerated the procedure well.? Permanent images saved and recorded. Plan:? Follow up prn COMMENT: COULD REPEAT PRN. IF NOT EFX WOULD UPDATE MRI(LAST ONE 2021)
[2024-05-13] MEDS: Dexamethasone Sod. Phos./Pres-Free 10 MG/ML VIAL IJ (13:09)
[2024-05-13] MEDS: Nerve Block Tray 1 EACH MC (13:10)
== END 2024-05-13 12:26 | disposition home or self-care (01) ==
LOC: PC 12:25
PROVIDERS: PCP Family Medicine; Visit Provider Anesthesiology Pain Medicine
DX: M54.50 Low back pain, unspecified (principal); M54.17 Radiculopathy, lumbosacral region; M54.16 Radiculopathy, lumbar region
CPT/HCPCS: 00123; 64483; 72100; J0665; J1100; Q9967

== ENCOUNTER 2024-05-29 00:46 | Outpatient (CLI) | payer MEDICARE, SELFPAY ==
--- NOTE | 2024-05-29 | DI.CT_ITS ---
Exam(s) CT ABDOMEN PELVIS WO/W EXAM: CT ABDOMEN PELVIS WO/W CLINICAL HISTORY: MASS OF URINARY BLADDER, N32.89. TECHNIQUE: Imaging Protocol: Axial computed tomography images with coronal and sagittal reformatted images were created and reviewed. Images were performed from the lung bases through the ischial tuberosities before IV contrast and fol lowing IV contrast using a 70 second delay, followed by 7 minutes delayed images. CONTRAST MATERIAL: Intravenous: Omnipaque 350 Contrast volume:100 cc Oral: no COMPARISON: CT CT ABDOMEN PELVIS W from 04/15/2024 FINDINGS: Lung Bases: Small hiatal hernia. Liver: Normal density. No suspicious mass. Stable cyst. No follow-up recommended. Gallbladder and biliary tract: No biliary dilation. Pancreas: Normal density, no abnormal calcifications or inflammatory process. Spleen: Normal. Kidneys: Normal size, contour and axis. No renal calculi. There is a 4 millimeter stone at the left ureterovesical junction. There is mild dilatation of the distal left ureter. There is no delay in nephrogram or pyelogram. Contrast is noted within the left ureter which is mildly dilated. The prev iously noted perinephric stranding is no longer present. No suspicious masses seen. Small bilatera l parapelvic cysts. Adrenal glands: No masses seen. Lymph nodes: Within normal limits. Abdominal Aorta: Abdominal portion non-dilated. Soft tissues: Unremarkable. Bladder: No gross wall thickening. Persistent enhancing mass at the right posterior bladder measurin g 10 millimeters. Heno evidence of calculi. Bowel: Stomach unremarkable. No obstruction or bowel wall thickening. Appendix normal. Sigmoid dive rticulosis. Peritoneal cavity: No ascites, collection or mesenteric inflammatory response. Bones: Degenerative changes in the spine. Reproductive organs: Enlarged prostate. IMPRESSION: 10 millimeter mass noted at the right posterior bladder, near the ureterovesical junction. Cystoscop y recommended. No suspicious renal mass. 4 millimeter stone remains present at the left ureterovesical junction however there is no delayed ne phrogram or pyelogram. There is slight dilatation of the left ureter. RADIATION DOSE DELIVERED: 1,337.97mGy.cm Total DLP DATA REPOSITORY: All CT scans at this facility are submitted to the National Radiology Data Registry (NRDR) Dose Index Registry (DIR) with the [employer] (A[employer]). RADIATION OPTIMIZATION: All CT scans at this facility use at least one of these dose optimization te chniques: automated exposure control; mA and/or kV adjustment per patient size (includes targeted exa ms where dose is matched to clinical indication); or iterative reconstruction.
[2024-05-29] MEDS: Omnipaque 350 MG/ML 100 ML BTL IJ (08:31)
[2024-05-29] MEDS: Normal Saline - Diluent 50 ML VIAL IJ ×2 (08:32→08:33)
== END 2024-05-29 01:06 ==
LOC: DI 00:46
PROVIDERS: PCP Family Medicine; Visit Provider Family Medicine
DX: N32.89 Other specified disorders of bladder (principal)
CPT/HCPCS: 74178; J3490

== ENCOUNTER → 2024-07-14 10:45 | Outpatient (BNVA) | payer MEDICARE, SELFPAY | PROVIDERS: PCP Family Medicine; Referring Provider Family Medicine; Visit Provider Nurse Practitioner Gerontology | DX: N40.0 Benign prostatic hyperplasia without lower urinary tract symptoms (principal); N32.89 Other specified disorders of bladder | CPT/HCPCS: 51798; 81003; 99215 ==

== ENCOUNTER 2024-07-20 06:10 | Day surgery (SDC) | payer MEDICARE, SELFPAY ==
[2024-07-20 06:30] VITALS: BP 159/94; PULSE 70; RESP 16; TEMP 36.2; O2SAT 94
--- NOTE | 2024-07-20 06:47 | W.PM.HP.N ---
Date of service: 07/20/24 Time of Service: 06:47 Assessment and Plan Assessment and plan (1) Calculus of kidney: Status: Chronic (2) Bladder mass: Status: Acute Assessment and plan: He has not passed his stone, so we will plan to do cystoscopy, left retrograde pyelogram, left ureteroscopy and possible holmium laser lithotripsy of the stone. We will then plan to do transurethral resection of his bladder tumor. History of Present Illness History of Present Illness Chief Complaint: Bladder mass Narrative: This is an 83-year-old gentleman who initially presented to the emergency department with left flank pain. He is found to have a left ureteral stone on CT scan. There was also concern for the presence of a bladder mass. His flank pain improved. He saw his primary care provider who performed a CT scan with and without contrast. His left ureteral stone remained at the ureterovesical junction. The left bladder mass was also easier to identify and characterize. He presents now for cystoscopy with transurethral resection of the bladder mass along with retrograde pyelogram, possible ureteroscopy and treatment of his left ureteral stone. Review of Systems Narrative: No fevers or chills Decreased hearing acuity. No vision change or dysphasia No diabetes or thyroid dysfunction No shortness of breath, cough or hemoptysis No chest pain or palpitations Chronic constipation. No nausea, vomiting, hepatitis, ulcers, jaundice, diarrhea No seizures, strokes or peripheral neuropathy No bleeding disorders or anemia Hx PMR. Hx Gout PFSH All Active Problems (Updated 07/20/24 @ 06:53 by Dejuan Charles MD) Bladder mass (Acute) Impairment of speech discrimination (Acute) Urge incontinence (Acute) Dupuytren disease of palm (Acute) Chronic constipation (Acute) Dependent edema (Acute) Left sided sciatica (Acute) Bunion (Acute) Essential (primary) hypertension (Acute) Trigger finger of left hand (Acute) Calculus of kidney (Chronic) History of use of hearing aid in both ears (Acute) Herpes zoster (Acute) Right carpal tunnel syndrome (Acute) PMR (polymyalgia rheumatica) (Acute) Syncope (Chronic) Lumbar radiculitis (Acute) Maxilla pain (Acute) Ear fullness (Acute) Sensorineural hearing loss, bilateral (Acute) Chest pressure (Acute) Spondylolysis, 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 (Acute) Trochanteric bursitis, left hip (Acute) Personal history of colonic polyps (Acute) Medical History Hearing loss History of neck pain Carpal tunnel syndrome Pain in left shoulder Sensory hearing loss, bilateral (07/20/13) Adenomatous colon polyp (01/11/17) sessile serrated, cecum Hyperlipidemia Osteoarthritis DJD (degenerative joint disease) of knee Lactose intolerance DDD (degenerative disc disease), lumbar Trigger finger Dupuytren's contracture Chronic neck pain Intermittent palpitations Skin lesion of face Nonsustained ventricular tachycardia Bunion, left foot Acute gouty arthropathy Hammer toe Gout Herpetic dermatitis Spondylolisthesis Allergic rhinitis Herpes Acid reflux Melanoma in situ face Sessile colonic polyp (~2016) History of adenomatous polyp of colon serrated features per PCP referral note Pruritic rash BPH (benign prostatic hyperplasia) Left hip pain Hypertension Surgical History History of tonsillectomy and adenoidectomy History of knee replacement procedure of right knee Repair of umbilical hernia Colonoscopy - IV Sedation (01/11/17) Bilateral inguinal hernias Social History Smoking/Tobacco Use Status: Former Tobacco Use Quit Date: 08/26/69 Smoking risk assessment performed?: Yes Alcohol Intake: current Alcohol Intake frequency: 0-2 drinks per day Alcohol type: wine Drug use: Never Substance use type: does not use Housing: house Current gender identity: male Additional Social history: UTAP Meds Allergies and Home Medications Allergies Allergy/AdvReac Type Severity Reaction Status Date / Time Penicillins Allergy Intermediate hives Verified 07/20/24 06:36 sulfamethoxazole (From Allergy unknown Verified 07/20/24 06:36 Septra) trimethoprim (From Septra) Allergy unknown Verified 07/20/24 06:36 Home Medications ?Medication ?Instructions ?Recorded ?Confirmed ?Type Aspir-81 81 mg tablet,delayed 81 mg PO DAILY 10/05/13 07/20/24 History release (aspirin) carvedilol 3.125 mg tablet 3.125 mg PO BID 02/16/20 07/20/24 History pravastatin 40 mg tablet 40 mg PO HS 02/16/20 07/20/24 History losartan 25 mg tablet 25 mg PO DAILY 12/19/20 07/20/24 History allopurinol 100 mg tablet 100 mg PO BID 10/23/21 07/20/24 History omega 8-phs-dxs-fish oil 300 1 cap PO DAILY 12/29/21 07/20/24 History mg-1,000 mg capsule oxybutynin chloride 5 mg 5 mg PO DAILY 05/10/22 07/20/24 History tablet,extended release 24 hr tamsulosin 0.4 mg capsule 0.4 mg PO DAILY 04/14/24 07/20/24 History docusate sodium 100 mg capsule 100 mg PO BID 06/02/24 07/20/24 History (Colace) prednisone 1 mg tablet See Rx Instructions PO DAILY 06/02/24 07/20/24 History psyllium husk 3.4 gram/5.4 gram 1 tbsp PO DAILY 06/02/24 07/20/24 History oral powder (Metamucil) Exam Const General: cooperative Neck Neck: supple Resp Effort & Inspection: normal respiratory effort Auscultation: clear to auscultation bilaterally Cardio Rate: regular rate Rhythm: regular rhythm GI Palpation: soft and no masses Neuro General: patient alert, patient awake and patient oriented x3 Time Spent Time spent with Patient: <40 minutes Time was spent: other
--- NOTE | 2024-07-20 06:48 | ANES.PREOP_ITS ---
General Info Date of Service Date Performed: 07/20/24 Height: 5 ft 9 in Weight: 81.647 kg Body Mass Index (BMI): 26.6 Surgical Procedure: Operation Date: 07/20/24 07:40 Proposed Procedure Side Surgeon p Cysto,Transurethral Resection Bladder Tumor, Retrograde & Stone Manipulation Left Dejuan Charles MD Meds Allergies and Home Medications Allergies Allergy/AdvReac Type Severity Reaction Status Date / Time Penicillins Allergy Intermediate hives Verified 07/20/24 06:36 sulfamethoxazole (From Allergy unknown Verified 07/20/24 06:36 ) trimethoprim (From ) Allergy unknown Verified 07/20/24 06:36 Home Medication ?Medication ?Instructions ?Recorded Aspir-81 81 mg tablet,delayed 81 mg PO DAILY 10/05/13 release (aspirin) carvedilol 3.125 mg tablet 3.125 mg PO BID 02/16/20 pravastatin 40 mg tablet 40 mg PO HS 02/16/20 losartan 25 mg tablet 25 mg PO DAILY 12/19/20 allopurinol 100 mg tablet 100 mg PO BID 10/23/21 omega 0-ypm-ctv-fish oil 300 1 cap PO DAILY 12/29/21 mg-1,000 mg capsule oxybutynin chloride 5 mg 5 mg PO DAILY 05/10/22 tablet,extended release 24 hr tamsulosin 0.4 mg capsule 0.4 mg PO DAILY 04/14/24 docusate sodium 100 mg capsule 100 mg PO BID 06/02/24 (Colace) prednisone 1 mg tablet See Rx Instructions PO DAILY 06/02/24 psyllium husk 3.4 gram/5.4 gram 1 tbsp PO DAILY 06/02/24 oral powder (Metamucil) Current Visit Medications: Current Medications Generic Name Dose Route Start Last Admin Trade Name Freq PRN Reason Stop Dose Admin Ciprofloxacin 400 mg in 200 mls @ 200 mls/hr 07/20/24 06:00 Cipro I.V. IVPB 07/20/24 23:59 PREOP KEO IV Miscellaneous Supplies 1 each 07/20/24 06:00 Iv Access IV 07/20/24 23:59 DIRECTED KEO Sodium Chloride 0 ml 07/20/24 06:00 Normal Saline Flush 10 Ml Syr IV 07/20/24 23:59 PRN PRN Sodium Chloride 0 ml 07/20/24 06:00 Normal Saline 10 Ml Vial IJ 07/20/24 23:59 DIRECTED PRN Sterile Water 0 ml 07/20/24 06:00 Water,Injection,Sterile 10 Ml Vial IJ 07/20/24 23:59 DIRECTED PRN PFSH Active Problems Active Problems: Problem Status Onset Code Impairment of speech discrimination Acute H93.299 Urge incontinence Acute N39.41 Dupuytren disease of palm Acute M72.0 Chronic constipation Acute K59.09 Dependent edema Acute R60.9 Left sided sciatica Acute M54.32 Bunion Acute M21.619 Essential (primary) hypertension Acute I10 Trigger finger of left hand Acute M65.30 Calculus of kidney Chronic N20.0 History of use of hearing aid in both ears Acute Z92.89 Herpes zoster Acute B02.9 Right carpal tunnel syndrome Acute G56.01 PMR (polymyalgia rheumatica) Acute M35.3 Syncope Chronic R55 Lumbar radiculitis Acute M54.16 Maxilla pain Acute R68.84 Ear fullness Acute H93.8X9 Sensorineural hearing loss, bilateral Acute H90.3 Chest pressure Acute R07.89 Spondylolysis, lumbar region Acute M43.06 Spondylolisthesis of lumbar region Acute M43.16 Trochanteric bursitis, left hip Acute M70.62 Personal history of colonic polyps Acute Z86.010 Medical History Medical History Hearing loss History of neck pain Carpal tunnel syndrome Pain in left shoulder Sensory hearing loss, bilateral (07/20/13) Adenomatous colon polyp (01/11/17) sessile serrated, cecum Hyperlipidemia Osteoarthritis DJD (degenerative joint disease) of knee Lactose intolerance DDD (degenerative disc disease), lumbar Trigger finger Dupuytren's contracture Chronic neck pain Intermittent palpitations Skin lesion of face Nonsustained ventricular tachycardia Bunion, left foot Acute gouty arthropathy Hammer toe Gout Herpetic dermatitis Spondylolisthesis Allergic rhinitis Herpes Acid reflux Melanoma in situ face Sessile colonic polyp (~2017) History of adenomatous polyp of colon serrated features per PCP referral note Pruritic rash BPH (benign prostatic hyperplasia) Left hip pain Hypertension Surgical History Surgical History History of tonsillectomy and adenoidectomy History of knee replacement procedure of right knee Repair of umbilical hernia Colonoscopy - IV Sedation (01/11/17) Bilateral inguinal hernias Tobacco Smoking/Tobacco Use Status: Former Tobacco Use Alcohol Alcohol Intake: current Alcohol intake frequency: 0-2 drinks per day Alcohol type: wine Substance Use Substance use: Never Substance use type: does not use Vital Signs and Lab Results Vital Signs Most Recent Vital Signs in EMR: Temp Pulse Resp BP Pulse Ox 36.2 C L 70 16 159/94 H 94 07/20/24 06:30 07/20/24 06:30 07/20/24 06:30 07/20/24 06:30 07/20/24 06:30 Lab Results Blood Type / Crossmatch: No Data to Display Complete Blood Count: No Data to Display Complete Metabolic Panel: No Data to Display Liver Function Panel: No Data to Display Coagulation Panel: No Data to Display Cardiac Panel: No Data to Display Arterial Blood Gas: No Data to Display Venous Blood Gas: No Data to Display Pancreas Panel: No Data to Display Thyroid Panel: No Data to Display Infectious Disease: No Data to Display Blood Cultures: No Data to Display Toxicology Panel: No Data to Display Imaging and Studies Imaging and Studies Study information below may be from another EMR and interpreted by another provider. Please see original notes in EMR for more complete details. EKG Summary: EKG PATIENT NAME: Tae Kahn UNIT #: [id number] ORDERING PROVIDER: Yulissa Bay PRIMARY CARE PROVIDER: CLAUDIA BERMUDEZ MD DATE/TIME OF SERVICE: 09/19/23 0844 : 1940 PERFORMING LOCATION: ER APPROVED REPORT Exam: Resting ECG Reason for Exam: chest pressure Patient Location: E HR:56 bpm ECG Measurements Heart Rate 56 AXIS WA 205 P 55 QRSd 101 QRS -34 QT 435 T81 QTc 422 Conclusion Sinus bradycardia...rate< 60 LVH with secondary repolarization abnormality...multi-LVH criteria, abnrm ST-T Anterior infarct, old...Q >40mS, abnormal ST-T, V2-V5 <Electronically signed by JAJA COMER MD in OV> E-Sign Date: 09/19/23 E-Sign Time: 902 ADDENDUM APPROVED REPORT Exam: Resting ECG Reason for Exam: chest pressure Patient Location: E HR:56 bpm ECG Measurements Heart Rate 56 AXIS WA 205 P 55 QRSd 101 QRS -34 QT 435 T81 QTc 422 Conclusion Sinus bradycardia...rate< 60 LVH with secondary repolarization abnormality...multi-LVH criteria, abnrm ST-T Anterior infarct, old...Q >40mS, abnormal ST-T, V2-V5 I have reviewed and I agree with the emergency room physician's ECG interpretation. Stress Test Summary: Patient Name: Tae Kahn Unit #: [id number] Loc: Ordering Provider: Claudia Bermudez M.D. Status: [facility] Primary Care Provider: Logan Kauffman M.D. Date of Exam: 06/01/21 Sex: M Admission Date: 06/01/21 : 1940 Age: 80 APPROVED REPORT Exam: Exercise Treadmill Patient Location: Out-Patient Room/Bed: Stress Nurse: Janet Banerjee RN Ordering Provider:CLAUDIA BERMUDEZ, Contact Number: [phone] BMI: 27.31 Baseline Rhythm: Sinus Bradycardia Indications: Acute chest pain Medical History Medical History: Hypertension, hyperlipidemia, L hip pain, gerd, BPH Cardiac Medications: Aspirin, pravastatin, losartan, carvedilol Allergies: Penicillin, sulfa methoxazole, trimethoprim Cardiac Risk Factors: Hypertension, hyperlipidemia, smoker (former) Previous Cardiac Procedures: None Pretest Chest Pain Characteristics: None Exercise History: Physically active Physical Disabilities: None Lung Sounds: Clear to auscultation Heart Sounds: Regular Stress Test Details Test: Exercise stress testing was performed using a Vishnu protocol. Nuclear Acquisition: Rest Tc-99m/Stress Tc-99m 1 day Rest Isotope: Tc-99m Sestamibi. Dose: 9.8 Date: 06/01/2021 Injection Time: 0835 Stress Isotope: Tc-99m Sestamibi. Dose: 32.2 Date: 06/01/2021 Injection Time: 1015 HR Resting HR Supine: 57 bpmMax Heart Rate (APMHR): 139.428757 bpm Resting HR Standin bpmTarget HR (85% APMHR): 118.289205 bpm Max HR Achieved: 145 bpm % of APMHR: 104.32 Recovery HR: 82 bpm HR response to stress: Normal HR response to stress Comment: Carvedilol held for 24 hrs BP Resting BP Supine: 146/90 mmHg Resting BP Standin/90 mmHg Max BP: 200/98 mmHg Recovery BP: 162/84 mmHg BP response to stress: Abnormal hypertensive response to stress. ECG Resting ECG: Sinus Bradycardia Ectopy: Rare PVC Stress ECG: Sinus Tachycardia ST Change: Horizontal ST depression, Upsloping ST depression Stage: [address] Deviation: 1 mm Arrhythmia: Occasional PAC and multifocal PVCs Recovery ECG: Sinus Rhythm Recovery ST Change: No significant ST segment changes noted Recovery Arrhythmia: Frequent PACs, occasional multifocal PVCs, couplet Clinical Reason for Termination: Fatigue Stress Symptoms: General Fatigue Exercise duration: 8 min11 sec Highest Stage Reached: 3 Exercise capacity: 10.16 METs Galvan Treadmill Score: 7.3 Rate Pressure Product: 44176 Stress ECG Conclusion 1. Resting electrocardiogram showed diffuse nondiagnostic ST-T abnormalities, poor R wave progression 2. Patient exercised on the Vishnu protocol and completed a workload of 10.16 METS, limited by fatigue 3. Normal heart rate and blood pressure response to exercise. Patient achieved greater than 100% of predicted heart rate for age 4. At peak exercise there was J-point depression with upsloping ST segments, not consistent with myocardial ischemia 5. Atrial and ventricular ectopic beats were noted throughout Galvan Treadmill Score is 7.3 which is Low risk. Stress Test Summary STAGETime (mins)Speed (mph)Grade (%)HRBPSYMPTOMSMETS Poovzq18781/90 Bxockjnk93670/90SpO2 95% 131.05972902/90SpO2 94%4.6 262.380292265/96SpO2 94%7 393.982001LqE1 94%10.2 1 min [id number]/545HpF7 97% 3 min xzlroeoz41581/98 6 min hhinriyb04228/86 9 min recovery 73230/84 MPI Conclusion Myocardial perfusion appears normal, without evidence of ischemia or prior infarction EF 57% Radiologist Interpretation Radiologist Interpretation by: Eb Hernandez MD Interpretation Date/Time: 06/01/2021 16:40:02 Stress results: The rate-pressure product for the peak heart rate and blood pressure was 61415lh Hg/min. Stress ECG: EXCERCISE TESTING ENDED IN 7 MINS, 48 SECS DUE TO MAX HR. MAX HR CYR360, 104% OF TARGET. HYPERTENSIVE AT BASELINE , WITH A HYPERTENSIVE BLOOD PRESSURE RESPONSE. METS: 9.85 ECTOPY: NO ECTOPY DURING EXCERCISE, BUT FREQUENT APC'S NOTED INT HE FIRST 4 MINS OF RECOVERY. ANGINA: NO REPORTED CHEST PAIN, PRESSURE, OR PALPITATIONS. ISCHEMIA: 1-2 mm horizontal / upsloping ST depression anterlateral leads. FUNCTIONAL CAPACITY: ABOVE AVERAGE CAPACITY. Galvan treadmill score: 0. This score predicts a moderate risk of cardiac events. Study data: Yves Bernard MD supervised and was readily available during the procedure. This study was interpreted by [facility]. Study status: Routine. Consent: The risks, benefits, and alternatives to the procedure were explained to the patient and informed consent was obtained. Procedure: Initial setup. A baseline ECG was recorded. Surface ECG leads and manual cuff blood pressure measurements were monitored. Heart sounds: Normal. Lung sounds: Normal. Treadmill exercise testing was performed using the Vishnu protocol. Study completion: The patient tolerated the procedure well and was discharged from the lab. Discharge: The patient left the laboratory in stable condition. Birthdate: Patient birthdate: 1940. Sex: Gender: male. Study date: Study date: 04/22/2019. Study time: 00:01 AM. Anesthesia Assessment and Plan Anesthesia History Personal History: No History of Anesthesia Complications Family History: Family History Unknown Exercise Tolerance Exercise Tolerance: Metabolic Equivalents>4 Pertinent Negatives Pertinent Negatives: No Symptoms of GERD, No Major Cardiovascular Symptoms or Complaints, No Major Pulmonary Symptoms or Complaints and No History of CVA/TIA Cardiac & Pulmonary Exam Cardiac Exam: Normal S1/S2 Heart Sounds Pulmonary Exam: Clear Bilateral Breath Sounds Implantable Cardiac Device Does patient have a Pacemaker or an ICD?: No Airway Exam Known Difficult Airway: No Mallampati Class: 2 Mouth Opening: Normal (> 3cm) Thyromental Distance: Greater than 3 cm Neck Range of Motion: Full ROM Neck Circumference: Normal Teeth Condition: Normal Dentition ASA Classification ASA Score: ASA 2 Emergency Case?: No NPO Status NPO Status: NPO Clears >2 hours, Solids >8 hours Anesthesia Plan Resuscitation Status: Full Code Anesthesia Technique: General Anesthesia Airway Planned: Natural Airway Monitors Used: Standard Monitors Preoperative Comments:: Start GA natural airway, convert to LMA if necessary
[2024-07-20] MEDS: Normal Saline Flush 10 ML SYR IV ×2 (07:10→09:39)
[2024-07-20 07:29] VITALS: BMI 26.6
[2024-07-20] MEDS: CIPROFLOXACIN 400 MG/200 ML BAG 200 MG IVPB (07:46)
[2024-07-20] MEDS: Lidocaine 2% Jelly 11 ML SYR (08:00)
[2024-07-20] MEDS: Omnipaque 300 MG/ML 50 ML BTL (08:05)
--- NOTE | 2024-07-20 08:24 | DI.RAD_ITS ---
Exam(s) XR RETROGRADE IN OR EXAM: XR RETROGRADE IN OR CLINICAL HISTORY: left ureteral stone TECHNIQUE: 2D and realtime digital imaging was performed. CONTRAST MATERIAL: Refer to procedure report. COMPARISON: CT CT ABDOMEN PELVIS WO/W from 05/29/2024 FINDINGS: Fluoroscopy was provided for Dr. Charles during the performance of a retrograde evaluation of the gaurav l collecting system. Please refer to the procedure report for complete details. Ka,r=5.0 mGy IMPRESSION: RADIATION DOSE DELIVERED: 0.0 0.0 0
--- NOTE | 2024-07-20 08:25 | BLADDER_PTH ---
PATIENT: Tae Kahn LOC: [facility] U#:[id number] AGE/SX: 83/M ROOM: RE07/20/[address]: Dejuan Charles MD : 1940 BED: DIS: 07/20/2024 SPEC #: [id number] RECD: 07/20/24 12:36 STATUS: LIZETTE REQ #: [id number] BARBARA: 07/20/24 08:[address]: Dejuan Charles DEPT: Surgical Specimen RECD BY: Yulissa Carrasco ENTERED: 07/20/24 12:36 SP TYPE: Bladder OTHR DR: Benjamin Heller Tissues: 1 - BLADDER CURRETTINGS Procedures: GROSS AND MICRO LEVEL 5 Comments: [id number]
--- NOTE | 2024-07-20 08:33 | W.PM.DSUDISC ---
Date of service: 07/20/24 Discharge Plan Disposition Patient Disposition: Home Condition: Stable Discharge Details Attending Provider: Dejuan Charles Primary Care Provider: Benjamin Heller Home Meds and New Rx's Prescriptions: No Action oxybutynin chloride 5 mg tablet extended release 24hr 5 mg PO DAILY losartan 25 mg tablet 25 mg PO DAILY allopurinol 100 mg tablet 100 mg PO BID aspirin [Aspir-81] 81 MG tablet,delayed release (DR/EC) 81 mg PO DAILY carvedilol 3.125 mg tablet 3.125 mg PO BID Rx Instructions: must administer with a meal/food pravastatin 40 mg tablet 40 mg PO HS omega 3-noc-uar-fish oil 300-1,000 mg capsule 1 cap PO DAILY docusate sodium [Colace] 100 mg capsule 100 mg PO BID Metamucil 3.4 gram/5.4 gram powder 1 tbsp PO DAILY Rx Instructions: mix into at least 8 oz of water or juice before administering prednisone 1 mg tablet See Rx Instructions PO DAILY Rx Instructions: as directed orally daily; tamsulosin 0.4 mg capsule 0.4 mg PO DAILY Discharge Instructions Additional Instructions: no need to strain urine - your stone has already passed You have a stent in your left ureter - as long as the stent is in place, you may have some blood in the urine, urinate even more frequently than usual and have some discomfort when you urinate. The stent has a string that comes out the urethra and can be removed in about 2 days by pulling the string and the stent (a long blue tube) will come with the string Followup appt 1 to 2 weeks to review surgical pathology Activity:: Activity as Tolerated Shower/Bathe:: 24 hours Diet:: As Tolerated Discharge Orders Discharge Orders: Discharge Order (Routine); Ordered 07/20/24 Ordered By: Dejuan Charles DS: Diagnosis Discharge Diagnosis (1) Calculus of kidney: Status: Chronic (2) Bladder mass: Status: Acute
[2024-07-20 08:35] VITALS: BP 91/53; PULSE 59; RESP 17; TEMP 36.2; O2SAT 96
--- NOTE | 2024-07-20 08:38 | W.PM.OP ---
Operative Note Operative Note PRE-OP DIAGNOSIS: 1. Left ureteral stone 2. 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 He is found to have a left distal ureteral stone but there is also concern on his imaging study for the presence of a bladder mass. He was then evaluated with a CT with and without contrast. His stone appeared to have migrated to the left ureterovesical junction. The presence of a mass was confirmed and he presents now for possible stone manipulation along with transurethral resection of his bladder tumor Findings: no stone in left ureter papillary lesion @ 2 cm just behind right ureteral orifice Procedure Description: The patient was given IV antibiotics and brought to the operating room on 07/20/2024. After successful induction of general anesthesia, he was placed in the dorsal lithotomy position. His genitalia was prepped and draped. 2% Xylocaine jelly was instilled into the urethra to act as a local anesthetic. A 22 [place]ese rigid cystoscope was passed through the urethra into the bladder. The urethra and bladder were inspected with the 30 degree lens. The pendulous, bulbar and membranous urethra's appeared normal with no strictures. Prostatic urethra showed some lateral lobe enlargement but no significant median lobe. No papillary mucosal changes were seen on the prostatic mucosa. The bladder neck was entered and the bladder mucosa was inspected. Both ureteral orifices were identified. The left orifice was a bit more edematous than the right. Just behind the right ureteral orifice was a 2 cm papillary appearing mass. The remainder of the bladder was mildly trabeculated with no papillary or nodular lesions. We began by passing a 5 Marshallese access catheter through the cystoscope and maneuvering the catheter into the left ureteral orifice. A retrograde pyelogram was then obtained by injecting Omnipaque through the access catheter under fluoroscopic guidance. I did not identify a filling defect on the initial retrograde pyelogram. I then passed a guidewire through the lumen of the access catheter and removed the access catheter and cystoscope. I passed a semirigid ureteroscope through the urethra into the bladder. I was able to pass the scope into the left ureteral orifice and advance up the ureter above the level of the bony pelvis. No stones were seen in the distal ureter. The scope was then withdrawn. We passed a 4.8 Marshallese variable length stent over the indwelling wire. The proximal end of the stent was curled in the renal pelvis and the distal end was curled in the bladder. We left a safety string attached and brought the string through the urethra. We then removed the cystoscope and passed a 24 Marshallese resectoscope sheath through the urethra into the bladder. We used bipolar cautery and an MONOCO resectoscope to perform transurethral resection of the visible tumor. The right ureteral orifice was visualized and was not involved in the resection. We then cauterized the resection site. Hemostasis appeared excellent. We evacuated all resected tissue and sent this tissue to the pathology lab for Permanent section. We removed the resectoscope. We anchored the safety string that was left on the ureteral stent to the dorsum of the penis using a Steri-Strip. The patient tolerated the procedure well with no complications. He was taken to the day surgery unit in stable condition. Date of Procedure: 07/20/24
[2024-07-20] MEDS: Oxybutynin 5 MG TAB PO (08:46)
[2024-07-20] MEDS: Phenazopyridine 200 MG TAB PO (08:46)
--- NOTE | 2024-07-20 08:56 | W.ANESPOSTOP ---
Postoperative Evaluation Date, Time and Location Date Performed: 07/20/24 Time Performed: 08:35 Patient Location: Day Surgery Unit Vital Signs Most Recent Imported Vital Signs: Most Recent Vital Signs Temp Pulse Resp BP Pulse Ox 36.2 C L 70 16 159/94 H 94 07/20/24 06:30 07/20/24 06:30 07/20/24 06:30 07/20/24 06:30 07/20/24 06:30 Pain Score Most Recent Pain Score: Most Recent Pain Score Pain Level 0 07/20/24 06:30 Assessment Mental Status: Awake (Alert & Oriented to Patient Baseline) Airway and Respiratory Function: Patent airway with normal (patient baseline) respiratory exam Cardiovascular Function: Hemodynamically Stable Hydration Status: Adequately Hydrated Nausea & Vomiting: No Nausea or Vomiting Pain: Pt. Denies Any Pain Peripheral Nerve Block: Patient did not receive a nerve block
--- NOTE | 2024-07-20 09:04 | W.ANESPOSTOP ---
Postoperative Evaluation Date, Time and Location Date Performed: 07/20/24 Time Performed: 09:00 Patient Location: Day Surgery Unit Vital Signs Most Recent Imported Vital Signs: Most Recent Vital Signs Temp Pulse Resp BP Pulse Ox 36.2 C L 70 16 159/94 H 94 07/20/24 06:30 07/20/24 06:30 07/20/24 06:30 07/20/24 06:30 07/20/24 06:30 Most Recent Vital Signs Temp Pulse Resp BP Pulse Ox 36.2 C L 70 16 159/94 H 94 07/20/24 06:30 07/20/24 06:30 07/20/24 06:30 07/20/24 06:30 07/20/24 06:30 Pain Score Most Recent Pain Score: Most Recent Pain Score Pain Level 0 07/20/24 06:30 Assessment Mental Status: Awake (Alert & Oriented to Patient Baseline) Airway and Respiratory Function: Patent airway with normal (patient baseline) respiratory exam Cardiovascular Function: Hemodynamically Stable Hydration Status: Adequately Hydrated Nausea & Vomiting: No Nausea or Vomiting Pain: Pt. Denies Any Pain Peripheral Nerve Block: Patient did not receive a nerve block
[2024-07-20 09:18] VITALS: BP 142/77; PULSE 56; RESP 16; TEMP 36.2; O2SAT 97
[2024-07-20] MEDS: ACETAMINOPHEN 1,000 MG/100 ML BAG 400 MG IVPB (09:38)
[2024-07-20 10:05] VITALS: BP 134/56; PULSE 59; RESP 16; TEMP 36.2; O2SAT 94
== END 2024-07-20 10:50 | disposition home or self-care (01) ==
PROVIDERS: PCP Family Medicine; Visit Provider Urology
PROC: 0TBB8ZZ Excision of Bladder, Via Natural or Artificial Opening Endoscopic (ICD-10-PCS; CPT 52235; principal; 2024-07-20 07:30)
DX: N20.0 Calculus of kidney (principal); C67.9 Malignant neoplasm of bladder, unspecified; N39.41 Urge incontinence; I10 Essential (primary) hypertension; K59.09 Other constipation; E78.5 Hyperlipidemia, unspecified
CPT/HCPCS: 52235; 52332; 74420; 88307; J0131; J0744; J1100; J2003; J2405; J2704; J3010; Q9967

== ENCOUNTER → 2024-08-04 10:22 | Outpatient (BNVA) | payer MEDICARE, SELFPAY | PROVIDERS: PCP Family Medicine; Referring Provider Family Medicine; Visit Provider Urology | DX: C67.9 Malignant neoplasm of bladder, unspecified (principal) | CPT/HCPCS: 99214 ==

== ENCOUNTER → 2024-11-03 08:48 | Outpatient (BNVA) | payer MEDICARE, SELFPAY | PROVIDERS: PCP Family Medicine; Referring Provider Family Medicine; Visit Provider Urology | DX: C67.9 Malignant neoplasm of bladder, unspecified (principal) | CPT/HCPCS: 52000 ==

== ENCOUNTER → 2025-01-20 08:02 | Outpatient (BNVA) | payer MEDICARE, SELFPAY | PROVIDERS: PCP Family Medicine; Referring Provider Family Medicine; Visit Provider Nurse Practitioner Gerontology | DX: C67.9 Malignant neoplasm of bladder, unspecified (principal); N39.41 Urge incontinence | CPT/HCPCS: 99214; 81003; 51798 ==

== ENCOUNTER → 2025-03-03 13:48 | Outpatient (BNVA) | payer MEDICARE, SELFPAY | PROVIDERS: PCP Family Medicine; Referring Provider Family Medicine; Visit Provider Nurse Practitioner Gerontology | DX: C67.9 Malignant neoplasm of bladder, unspecified (principal); N39.41 Urge incontinence; R39.9 Unspecified symptoms and signs involving the genitourinary system | CPT/HCPCS: 99214; 51798 ==

== ENCOUNTER → 2025-04-21 07:47 | Outpatient (BNVA) | payer MEDICARE, SELFPAY | PROVIDERS: PCP Family Medicine; Referring Provider Family Medicine; Visit Provider Nurse Practitioner Gerontology | DX: C67.9 Malignant neoplasm of bladder, unspecified (principal); N39.41 Urge incontinence | CPT/HCPCS: 99213 ==

== ENCOUNTER 2025-05-10 14:39 | Outpatient (REF) | payer MEDICARE, SELFPAY ==
[2025-05-10 22:05] LABS: Abs Immature Grans 0.03 10^3/uL (0.0-0.06); HCT 43.6 % (40.0-50.0); HGB 15.0 g/dL (13.5-17.5); Immature Grans % 0.7 %; MCH 33.8 pg (27.0-33.0); MCHC 34.4 % (32.0-36.0); MCV 98 fL (80-95); MPV 11.8 fL (8.0-11.0); Platelet Count 130 10^3/uL (130-400); RBC 4.44 10^6/uL (4.36-5.78); RDW 12.3 % (11.8-14.1); RDW-SD 44.2 fL; WBC 4.16 10^3/uL (4.4-10.8)
[2025-05-10 22:13] LABS: ALT 26 U/L (16-63); AST 21 U/L (15-37); Albumin 3.9 g/dL (3.4-5.0); Alkaline Phosphatase 91 U/L (46-116); Anion Gap 8.1 mmol/L (3-11); BUN 13 mg/dL (7-18); Bilirubin, Total 0.9 mg/dL (0.2-1.0); CO2 27.9 mmol/L (21.0-32.0); Calcium 8.8 mg/dL (8.5-10.1); Chloride 105 mmol/L (98-107); Estimated GFR 86.73 (mL/min/1.73m2); Glucose 100 mg/dL (74-106); Potassium 4.2 mmol/L (3.5-5.1); Sodium 141 mmol/L (136-145); Total Protein 6.8 g/dL (6.4-8.2)
== END 2025-05-10 14:40 | disposition home or self-care (01) ==
LOC: NCHCN 14:39
PROVIDERS: PCP Family Medicine; Visit Provider Family Medicine
DX: E78.5 Hyperlipidemia, unspecified (principal)
CPT/HCPCS: 80053; 83721; 85025

== ENCOUNTER → 2025-06-04 08:45 | Outpatient (BNVA) | payer MEDICARE, SELFPAY | PROVIDERS: PCP Family Medicine; Referring Provider Family Medicine; Visit Provider Urology | DX: C67.9 Malignant neoplasm of bladder, unspecified (principal) | CPT/HCPCS: 81002; 52000 ==

== ENCOUNTER 2025-06-16 10:56 | Emergency (ER) | payer MEDICARE, SELFPAY ==
[2025-06-16 10:56] VITALS: BP 158/63; PULSE 66; RESP 18; TEMP 36.8; O2SAT 98
--- NOTE | 2025-06-16 11:00 | RT.EKG_ITS ---
APPROVED REPORT Exam: Resting ECG Reason for Exam: syncope Patient Location: E HR:61 bpm ECG Measurements Heart Rate 61 AXIS [place] 210 P 48 QRSd 103 QRS -37 QT 423 T 92 QTc 425 Conclusion Sinus rhythm...normal P axis, V-rate 60- 99 Inferior infarct, old...Q >35mS, II III aVF Anterior infarct, old...Q >40mS, abnormal ST-T, V2-V5 Physician: No STEMI
--- NOTE | 2025-06-16 11:00 | DI.MRI_ITS ---
Exam(s) MR BRAIN WO EXAM: MR BRAIN WO CLINICAL HISTORY: Slurred speech, confusion, now resolved, suspect T TECHNIQUE: Multiplanar multisequence MRI of the brain was performed. COMPARISON: CT CT CERVICAL SPINE WO from 12/15/[address] BRAIN NECK CTA from 12/15/2021 FINDINGS: VENTRICLES AND EXTRA AXIAL SPACES: Normal in size and morphology for the patient's age. MIDLINE SHIFT: None. CEREBRAL PARENCHYMA: No focus of restricted diffusion to suggest acute infarct. No space-occupying lesion identified. There are multiple areas of hyperintense signal seen on the FLAIR and T2 weighted images consistent with chronic microvascular ischemic disease. HEMORRHAGE: None. BRAINSTEM/CEREBELLUM: Normal. CALVARIUM: Normal. VISUALIZED PARANASAL SINUSES/MASTOIDS:There is mucosal thickening in the left maxillary sinus. [place]: Normal flow void. PITUITARY GLAND: Unremarkable. OTHER FINDINGS: None. IMPRESSION: 1. There is no evidence of an acute territorial infarct. 2. Findings of age-related cerebral atrophy and chronic microvascular ischemic disease. DATA REPOSITORY:
[2025-06-16 11:02] VITALS: BP 158/63; PULSE 66; RESP 18; TEMP 36.8; O2SAT 98
--- NOTE | 2025-06-16 11:08 | W.ED.GENAD ---
Discharge Plan Disposition Patient Disposition: Home Condition: Good Discharge Details Clinical Impression: TIA (transient ischemic attack) Primary Care Provider: Benjamin Heller ED Provider: Ang Caruso Home Meds and New Rx's Prescriptions: No Action Gemtesa 75 mg tablet 75 mg PO DAILY losartan 25 mg tablet 25 mg PO DAILY allopurinol 100 mg tablet 100 mg PO BID azithromycin 250 mg tablet 250 mg PO PRN Rx Instructions: start on day 2 of therapy prednisolone acetate 1 % drops,suspension 1 drp ophthalmic (eye) TID prednisone 1 mg tablet 1 mg PO DAILY aspirin [Aspir-81] 81 MG tablet,delayed release (DR/EC) 81 mg PO DAILY carvedilol 3.125 mg tablet 3.125 mg PO BID Rx Instructions: must administer with a meal/food pravastatin 40 mg tablet 40 mg PO HS omega 6-tpt-kwe-fish oil 300-1,000 mg capsule 1 cap PO DAILY docusate sodium [Colace] 100 mg capsule 100 mg PO BID Metamucil 3.4 gram/5.4 gram powder 1 tbsp PO DAILY Rx Instructions: mix into at least 8 oz of water or juice before administering tamsulosin 0.4 mg capsule 0.4 mg PO DAILY Discharge Instructions Instructions: Transient ischemic attack Additional Instructions: At this time your brain MRI has returned normal your electrolytes, EKG and other workup shows no significant acute abnormalities. There is concern that he still may have had a transient ischemic accident. Please continue to take your aspirin. Please follow-up closely with your primary care provider for outpatient urgent carotid ultrasound and cardiac echo. If you notice any worsening of your symptoms, or any new symptoms such as vomiting, diarrhea, fever, chills, shortness of breath, chest pain, numbness, weakness, or fainting , please return immediately to the emergency department for reevaluation. Please follow up with your primary care provider as soon as possible for reassessment and reevaluation. As always, it was a pleasure participating in your medical care today. Referrals: Benjamin Heller MD [Primary Care Provider, Medicine] [facility] General Date/Time Provider Initiated Documentation: 06/16/25 11:25. HPI Narrative: 84-year-old male with past medical history of diverticulitis, high cholesterol, hypertension, gout, BPH, tonsillectomy, knee replacement on the right, previous hernia repair, distant smoking use 40 years ago, with a family history of stroke, who takes baby aspirin daily, presents today via EMS for evaluation of TIA. About an hour prior to arrival the patient was in his kitchen with his , he began to be quite confused and had difficulty speaking. The patient did not notice it but his did. She sat him down, after which point he had an episode of brief syncope. He did not fall or hit his head. He did feel out of it at that time. Symptoms in total lasted for about 30 minutes, and then when EMS arrived symptoms began resolving and then completely resolved shortly thereafter. He denies any headache or chest pain. He denies any falls or trauma. He denies any new medications. He denies any fever or chills. He does admit to having something similar happen about 6 months ago which resolved on its own. No other complaints at this time. He denies any focal numbness tingling or weakness otherwise. Related Data Home Medications ?Medication ?Instructions ?Recorded ?Confirmed Aspir-81 81 mg tablet,delayed 81 mg PO DAILY 10/05/13 06/04/25 release (aspirin) carvedilol 3.125 mg tablet 3.125 mg PO BID 02/16/20 06/04/25 pravastatin 40 mg tablet 40 mg PO HS 02/16/20 06/04/25 losartan 25 mg tablet 25 mg PO DAILY 12/19/20 06/04/25 allopurinol 100 mg tablet 100 mg PO BID 10/23/21 06/04/25 omega 6-rmz-uau-fish oil 300 1 cap PO DAILY 12/29/21 06/04/25 mg-1,000 mg capsule tamsulosin 0.4 mg capsule 0.4 mg PO DAILY 04/14/24 06/04/25 docusate sodium 100 mg capsule 100 mg PO BID 06/02/24 06/04/25 (Colace) psyllium husk 3.4 gram/5.4 gram 1 tbsp PO DAILY 06/02/24 06/04/25 oral powder (Metamucil) azithromycin 250 mg tablet 250 mg PO PRN 03/23/25 06/04/25 prednisolone acetate 1 % eye 1 drp ophthalmic (eye) TID 03/23/25 06/04/25 drops,suspension prednisone 1 mg tablet 1 mg PO DAILY 03/23/25 06/04/25 vibegron 75 mg tablet (Gemtesa) 75 mg PO DAILY 04/21/25 06/04/25 Allergies Allergy/AdvReac Type Severity Reaction Status Date / Time Penicillins Allergy Intermediate hives Verified 04/28/25 08:43 sulfamethoxazole (From Allergy unknown Verified 04/28/25 08:43 ) trimethoprim (From ) Allergy unknown Verified 04/28/25 08:43 General Stated Complaint: AMS/LOC LIANNE: 3 Exam Narrative Exam Narrative: 1.Const: Well-nourished, Well-developed, appearing stated age 2.Eyes: PERRL, no conjunctival injection, and symmetrical lids. 3.ENT: Atraumatic external nose and ears. Moist MM. Neck: Symmetric, trachea midline, No thyromegaly. 4.CVS: +S1/S2, Peripheral pulses 2+ and equal in all extremities. Brisk capillary refill in all extremities. 5.RESP: Unlabored respiratory effort. Clear to auscultation bilaterally. No wheezes rales or rhonchi 6.GI: Soft, Nontender/Nondistended, No hepatosplenomegaly. No guarding or rebound. 7.MSK: Normocephalic/Atraumatic, Extremities w/o deformity or ttp No cyanosis or clubbing, Normal movement of all extremities 8.Skin: Warm, Dry. No rashes or lesions. 9.Neuro: box blank machine feeder II-XII grossly intact. Sensation grossly intact, no focal neurologic deficits. All 6 cardinal planes of vision are fully intact. No evidence of rotatory or vertical nystagmus. The patient demonstrated a normal [id number], good dexterity. There was no evidence of dysdiadochokinesia. Patient was able to ambulate without difficulty. There was no wide-based gait. Romberg testing was normal. Rjrg-[id number] testing was normal. Sensation was intact bilaterally as well as muscle strength bilaterally for all extremities. Patient was able to verbalize butter cup with no slurring, or miss pronunciation. 10.Psych: (AAO) x3. Appropriate mood and affect Course Vital Signs Vital signs: Vital Signs Temperature 36.8 C 06/16/25 10:56 Pulse 66 06/16/25 10:56 Respiratory Rate 18 06/16/25 10:56 Blood Pressure 158/63 H 06/16/25 10:56 Pulse Oximetry 98 06/16/25 10:56 Temperature 36.8 C 06/16/25 11:02 Temperature Source Tympanic 06/16/25 11:02 Pulse 66 06/16/25 11:02 Respiratory Rate 18 06/16/25 11:02 Respiratory Effort Normal 06/16/25 11:01 Respiratory Depth Normal 06/16/25 11:01 Respiratory Pattern Normal 06/16/25 11:01 Blood Pressure 158/63 H 06/16/25 11:02 Pulse Oximetry 98 06/16/25 11:02 Oxygen Delivery Method Room Air 06/16/25 11:02 Oxygen Flow Rate 0 06/16/25 11:02 Pain Level 0 06/16/25 11:02 Medical Decision Making 84-year-old male with past medical history of diverticulitis, high cholesterol, hypertension, gout, BPH, tonsillectomy, knee replacement on the right, previous hernia repair, distant smoking use 40 years ago, with a family history of stroke, who takes baby aspirin daily, presents today via EMS for evaluation of TIA. About an hour prior to arrival the patient was in his kitchen with his , he began to be quite confused and had difficulty speaking. The patient did not notice it but his did. She sat him down, after which point he had an episode of brief syncope. He did not fall or hit his head. He did feel out of it at that time. Symptoms in total lasted for about 30 minutes, and then when EMS arrived symptoms began resolving and then completely resolved shortly thereafter. He denies any headache or chest pain. He denies any falls or trauma. He denies any new medications. He denies any fever or chills. He does admit to having something similar happen about 6 months ago which resolved on its own. No other complaints at this time. He denies any focal numbness tingling or weakness otherwise. Exam demonstrates a well-appearing male, no focal deficits, no neurologic abnormalities at this time. Concern is for dysrhythmia, syncope, or TIA. We do have an opportunity to get an MRI at this time as he is no longer a tPA candidate. We will evaluate for concerning etiologies, monitor closely and reassess. 2:03 PM Laboratory workup has returned stable, no significant white count, platelets normal, electrolytes normal, serial troponins normal, thyroid function normal. Brain MRI shows no evidence of acute process, infarct or other acute abnormality. Patient continues to remain symptom-free, and has no focal neurologic deficits. Symptomatology consistent with TIA. With normal serial troponins, stable EKG, and no other significant abnormality I do not see evidence of significant symptomatology to suggest life-threatening cardiac dysrhythmia. At this time with a notably benign/stable workup I do feel that close outpatient follow-up is reasonable. We will discharge home, I discussed this with his . Additionally I discussed with them the importance of close outpatient follow-up for echo as well as carotid ultrasounds. Patient and family understand. Patient is on daily aspirin, and recommend he continue this potentially escalating to full dose until reassessed by PCP. We did discuss risks and benefits of aspirin in the scenarios though, and he states that he he would like to take the higher dose aspirin despite blood gastric irritation or bleed risk. Patient will be discharged home. Discussed red flags for which to return. I have extensively reviewed the treatment plan and discharge instructions with the patient and their family. I have addressed all patient concerns at this time. The patient and family was made aware of what symptoms to monitor for that would warrant a return to the emergency department. Discussed the plan with the patient and family, they demonstrate verbal understanding and agreement with our assessment and plan at this time. The documentation in this chart was dictated using [employer] dictation software. Please excuse any dictation errors. FINDINGS: VENTRICLES AND EXTRA AXIAL SPACES: Normal in size and morphology for the patient's age. MIDLINE SHIFT: None. CEREBRAL PARENCHYMA: No focus of restricted diffusion to suggest acute infarct. No space-occupying lesion identified. There are multiple areas of hyperintense signal seen on the FLAIR and T2 weighted images consistent with chronic microvascular ischemic disease. HEMORRHAGE: None. BRAINSTEM/CEREBELLUM: Normal. CALVARIUM: Normal. VISUALIZED PARANASAL SINUSES/MASTOIDS:There is mucosal thickening in the left maxillary sinus. [place]: Normal flow void. PITUITARY GLAND: Unremarkable. OTHER FINDINGS: None. IMPRESSION: 1. There is no evidence of an acute territorial infarct. 2. Findings of age-related cerebral atrophy and chronic microvascular ischemic disease. [facility] All Active Problems (Updated 06/16/25 @ 14:06 by Ang Caruso DO) TIA (transient ischemic attack) (Acute) Impairment of speech discrimination (Acute) Urge incontinence (Acute) Dupuytren disease of palm (Acute) Chronic constipation (Acute) Dependent edema (Acute) Left sided sciatica (Acute) Bunion (Acute) Essential (primary) hypertension (Acute) Trigger finger of left hand (Acute) Calculus of kidney (Chronic) History of use of hearing aid in both ears (Acute) Herpes zoster (Acute) Right carpal tunnel syndrome (Acute) PMR (polymyalgia rheumatica) (Acute) Syncope (Chronic) Lumbar radiculitis (Acute) Maxilla pain (Acute) Ear fullness (Acute) Sensorineural hearing loss, bilateral (Acute) Chest pressure (Acute) Spondylolysis, 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 (Acute) Trochanteric bursitis, left hip (Acute) Personal history of colonic polyps (Acute) Medical History (Updated 06/16/25 @ 14:06 by Ang Caruso DO) 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 History of kidney stones Spinal stenosis, lumbosacral region Encounter for routine adult health examination Bladder mass Hearing loss History of neck pain Carpal tunnel syndrome Pain in left shoulder Sensory hearing loss, bilateral (07/20/13) Adenomatous colon polyp (01/11/17) sessile serrated, cecum Hyperlipidemia Osteoarthritis DJD (degenerative joint disease) of knee Lactose intolerance DDD (degenerative disc disease), lumbar Trigger finger Dupuytren's contracture Chronic neck pain Intermittent palpitations Skin lesion of face Nonsustained ventricular tachycardia Bunion, left foot Acute gouty arthropathy Hammer toe Gout Herpetic dermatitis Spondylolisthesis Allergic rhinitis Herpes Acid reflux Melanoma in situ face Sessile colonic polyp (~2017) History of adenomatous polyp of colon serrated features per PCP referral note Pruritic rash BPH (benign prostatic hyperplasia) Left hip pain Hypertension Surgical History History of tonsillectomy and adenoidectomy History of knee replacement procedure of right knee Repair of umbilical hernia Colonoscopy - IV Sedation (01/11/17) Bilateral inguinal hernias Family History (Updated 03/23/25 @ 13:25 by Antonia Crane) Mother FH: arthritis OA (osteoarthritis) Status post bilateral knee replacements Skin cancer Actinic related Social History (Updated 03/23/25 @ 13:26 by Antonia Crane) Smoking/Tobacco Use Status: Former Tobacco Use Quit Date: 08/26/69 Smoking risk assessment performed?: Yes Alcohol Intake: current Alcohol Intake frequency: 0-2 drinks per day Alcohol type: wine Drug use: Never Substance use type: does not use Housing: house Current gender identity: male Additional Social history: MAIA
[2025-06-16 11:25] LABS: Abs Immature Grans 0.03 10^3/uL (0.0-0.06); HCT 46.1 % (40.0-50.0); HGB 15.9 g/dL (13.5-17.5); Immature Grans % 0.7 %; MCH 33.6 pg (27.0-33.0); MCHC 34.5 % (32.0-36.0); MCV 98 fL (80-95); MPV 10.5 fL (8.0-11.0); Platelet Count 149 10^3/uL (130-400); RBC 4.73 10^6/uL (4.36-5.78); RDW 12.4 % (11.8-14.1); RDW-SD 44.3 fL; WBC 4.35 10^3/uL (4.4-10.8)
[2025-06-16 11:39] LABS: INR 1.1 (0.9-1.1); PTT Activated 25.6 sec (20.6-30.2); Prothrombin Time 11.0 sec (9.1-11.1)
[2025-06-16 11:55] LABS: ALT 24 U/L (16-63); AST 18 U/L (15-37); Albumin 4.1 g/dL (3.4-5.0); Alkaline Phosphatase 87 U/L (46-116); Anion Gap 7.0 mmol/L (3-11); BUN 16 mg/dL (7-18); Bilirubin, Total 1.3 mg/dL (0.2-1.0); CO2 29.0 mmol/L (21.0-32.0); Calcium 9.1 mg/dL (8.5-10.1); Chloride 102 mmol/L (98-107); Estimated GFR 73.76 (mL/min/1.73m2); Glucose 95 mg/dL (74-106); Potassium 4.1 mmol/L (3.5-5.1); Sodium 138 mmol/L (136-145); TSH (W/Ref FT4) 3.56 uIU/mL (0.36-3.74); Total Protein 7.7 g/dL (6.4-8.2); Troponin I 11 ng/L (<or=76)
[2025-06-16 12:54] LABS: Troponin I 9 ng/L (<or=76)
== END 2025-06-16 14:13 | disposition home or self-care (01) ==
PROVIDERS: Emergency Provider Student in an Organized Health Care Education/Training Program; PCP Family Medicine
DX: G45.9 Transient cerebral ischemic attack, unspecified (principal); I10 Essential (primary) hypertension; E78.5 Hyperlipidemia, unspecified; Z82.3 Family history of stroke; Z79.82 Long term (current) use of aspirin; Z87.891 Personal history of nicotine dependence
CPT/HCPCS: 80053; 93005; 99284; 70551; 84443; 84484; 85025; 85610; 85730; 93010

== ENCOUNTER → 2025-07-06 00:08 | Outpatient (CLI) | payer MEDICARE, SELFPAY ==
--- NOTE | 2025-07-06 | DI.US_ITS ---
APPROVED REPORT EXAM: Comprehensive 2D, Doppler, and color-flow Echocardiogram Patient Location: Out-Patient [place] Cutter: Cynthia Canas RT (R) (CT) RD Rhythm: NSR Indications: Transient Ischemic Attack. Other Information Study Quality: Adequate Conclusion Mild concentric left ventricular hypertrophy. Ejection fraction is 65 to 70%. Wall motion is normal. Diastolic function is normal for age Normal right ventricular size and function Both atria are normal in size Aortic valve is sclerotic and trileaflet without stenosis or regurgitation Mildly thickened mitral leaflets. Trace mitral regurgitation Normal estimated right ventricular systolic pressure 27 mmHg. Mild tricuspid regurgitation Wall motion Left Ventricle The left ventricle is normal size. The left ventricular systolic function is normal. The left ventricular ejection fraction is within the normal range. Mild concentric left ventricular hypertrophy. Paradoxical septal motion. Grade I diastolic dysfunction. Normal for age There is no ventricular septal defect visualized. LVEF is 65-70%. Right Ventricle The right ventricle is normal size. The right ventricular systolic function is normal. There is normal right ventricular wall thickness. Atria The left atrium size is normal. The right atrium size is normal. Trivial PFO noted by color flow Doppler. Aortic Valve Aortic valve is trileaflet. Aortic valve leaflets are sclerotic but open well. Aortic sclerosis without significant stenosis. No aortic regurgitation is present. Mitral Valve Mitral valve leaflets are mildly thickened and calcified leaflet tips. No evidence of mitral valve stenosis. Trace mitral regurgitation. Tricuspid Valve The tricuspid valve is normal in structure. There is no tricuspid valve stenosis. Mild tricuspid regurgitation. Pulmonary artery pressures are normal with the RVSP = 27 mmHg. Pulmonic Valve The pulmonary valve is normal in structure. There is no pulmonic valvular stenosis. Trace pulmonic regurgitation. Great Vessels The aortic root is normal in size. The pulmonary artery is normal. The ascending aorta is normal in size. IVC is normal in size and collapses >50% with inspiration. Pericardium There is no pericardial effusion. There is no pleural effusion. 2D Dimensions IVSD d PLAX 1.31 cm M: 0.6-1.2 Ao Root d 2.79 cm M: 3.1 - 3.7 LVPW d PLAX 0.82 cm M: 0.6 - 1.2 Ao Asc Diam d 3.66 cm M: 2.6 - 3.4 LVID d PLAX 3.98 cm M: 4.2 - 5.8 IVC Diam exp d SLAX 1.4 cm LVDs 2.45 cm M: 2.5 - 4.0 LV EF Teichholz 69.4 % FS 38.50 % LV EDV (Teich) 69.3 mL LV ESV (Teich) 21.2 mL M-Mode TAPSE 2.43 cm (M/F) >1.7 Auto EF LV EDV A4C 88.5 mL LV EDV A2C 97.2 mL LV EDV BP 92.5 mL LV ESV A4C 47.1 mL LV ESV A2C 40.7 mL LV ESV BP 44.0 mL LVEF(%) A4C 46.8 % LVEF(%) A2C 58.1 % LVEF(%) BP 52.4 % LV SV A4C 41.4 ml LV SV A2C 56.5 ml LV SV BP 48.5 ml LV CO A4C 2.6 L/min LV CO A2C 3.5 L/min LV CO BP 3.0 L/min HR A4C 61.85 BPM HR A2C 62.39 BPM LV EDV Index (BP) LV Volumes - Method of Disks (Villegas's) Single Plane 2D LV Volumes Biplane 2D LV Volumes LV EDV A4C 83.1 mL LV EDV BP 86.84 mL M: 62 - 150 LV ESV A4C 26.6 mL LV ESV BP 27.7 mL LVEF(%) A4C 68.0 % LVEF(%) BP 68.14 % M: 52 - 72 LV EDV A2C 88.6 mL LV EDV BP Index 44.30 mL/m2 M: 34 - 74 LV ESV A2C 29.1 mL SV BP LVEF(%) A2C 67.1 % SV Index LV Strain Long Pk Overal Avg (s) 17.05 RV Strain Global Peak Long. Strain A4C 29.10 Global Peak Long. Strain A4C FW 36.61 LA Volume LA Length A4C 5.6 cm LA Length A2C 5.5 cm LA Area A4C s 18.14 cm2 LA Area A2C s 16.24 cm2 LA Vol A4C A-L 49.63 mL LA Vol A2C A-L 40.36 mL LA Vol Biplane A-L 45.1 mL LA Vol/BSA A4C A-L LA Vol/BSA A2C A-L LA Vol/BSA BP A-L 23.0 mL/m2 LA Vol A4C MOD 46.3 mL LA Vol A2C MOD 39.1 mL LA Vol BP MOD 42.3 mL LV Diastology MV E' medial 0.062 (>0.07 m/s) MV E Vmax 0.61 (0.4-1.3 m/s) MV E/E' MED 9.73 (<14) MV A Vmax 0.75 (0.4-1.3 m/s) MV E' lateral 0.077 (>0.1 m/s) E/A Ratio 0.8 MV E/E' LAT 7.93 (<14) MV E' Average 0.069 m/s MV E/E'(average) 8.74 Aortic Valve AoV Vmax 1.75 m/s LVOT Vmax 1.09 m/s AoV Peak Grad 12.2 mmHg LVOT Peak Grad 4.7 mmHg AoV Area (Vmax) 1.94 cm2 LVOT VTI 0.210 m AoV VTI 0.365 m LVOT Mean Grad 2.3 mmHg AoV Mean Hany. 1.25 m/s LVOT SV 65.44 mL AoV Mean Grad 6.8 mmHg LVOT Diam s 1.95 cm AoV Area (VTI) 1.79 cm2 AV Regurg Peak Gr. 12.24 mmHg Velocity Ratio 0.62 Mitral Valve MV DT 247 (160-240 msec) Pulm Vein s 0.46 m/s Pulm Vein d 0.37 m/s Pulm Vein a 0.30 m/s Pulmonary Valve RVOT Vmax 0.77 m/s RVOT Peak Gr. 2.4 mmHg RVOT VTI 0.140 m RVOT Mean Gr. 1.1 mmHg MO ED Velocity 1.10 m/s MO ED Grad 4.9 mmHg Tricuspid Valve RA Pressure 3.00 mmHg TR Vmax 2.48 m/s TV S' 0.14 m/s TR Peak Grad 24.6 mmHg RVSP (TR) 27.6 mmHg
--- NOTE | 2025-07-06 | DI.US_ITS ---
Exam(s) US CAROTID EXAM: US CAROTID CLINICAL HISTORY: TRANSIENT ISCHEMIC ATTACK, G45.9. TECHNIQUE: Ultrasound carotids performed using grayscale, color-flow, and spectral Doppler imaging. COMPARISON: No exams were available for comparison FINDINGS: RIGHT CAROTID ARTERY: Plaque: Mild calcific plaque at the common carotid bulb and proximal internal carotid artery. Velocity elevation: None. LEFT CAROTID ARTERY: Plaque: Mild calcific plaque at the common carotid bulb and proximal internal carotid artery. Velocity elevation: None. VERTEBRAL ARTERIES: Antegrade flow. IMPRESSION: Mild calcific plaque at the common carotid bulbs and proximal internal carotid arteries. No evidence for hemodynamically significant carotid stenosis. Criteria for Carotid Stenosis: Normal: ICA PSV <125 cm/s no plaque or intimal thickening is visible. <50% stenosis: ICA PSV <125 cm/s and plaque or intimal thickening is visible. 50-69% stenosis: ICA PSV is 125-250 cm/s and plaque is visible. >70% stenosis to near occlusion: ICA PSV >250 cm/s with visible plaque and luminal narrowing. DATA REPOSITORY:
== END ==
LOC: DI 00:08
PROVIDERS: PCP Family Medicine; Visit Provider Family Medicine
DX: G45.9 Transient cerebral ischemic attack, unspecified (principal); I51.7 Cardiomegaly
CPT/HCPCS: 93306; 93880

== ENCOUNTER → 2025-07-29 00:47 | Outpatient (CLI) | payer MEDICARE, SELFPAY ==
--- NOTE | 2025-07-29 11:32 | DI.DEXA_ITS ---
Exam(s) XR DEXA BONE DENSITY W/WO EL EXAM: XR DEXA BONE DENSITY W/WO EL CLINICAL HISTORY: SNF USE SYSTEMIC STERIODS Z79.52 TECHNIQUE: Routine DEXA evaluation of the lumbar spine, hip, or forearm. COMPARISON: No exams were available for comparison FINDINGS: Performed on a Hologic unit. Lateral image: No compression fracture evident. Lumbar Spine total T-score: 2.3 which is in normal range Hip total T-score:0.3 which is in normal range Independent reading at the level of the femoral neck yields T-score of -1.0 which is low normal range. Forearm total T-score: 0.4 which is normal range IMPRESSION: Bone mineral density measures in the normal range. Fracture risk is low Note: Any spine fracture indicates 5x risk for subsequent spine fracture and 2x risk for subsequent hip fracture. World Health Organization criteria for BMD interpretation classify patients: Normal...... T- Score at or above -1.0 Osteopenic... T- Score between -1.0 and -2.5 Osteoporosis... T-Score at or below -2.5
== END ==
LOC: DI 00:47
PROVIDERS: PCP Family Medicine; Visit Provider Nurse Practitioner Acute Care
DX: Z79.52 Long term (current) use of systemic steroids (principal)
CPT/HCPCS: 77080